=== PATIENT | female | born 1970 | race Two or more races ===

== ENCOUNTER 2019-04-18 14:43 | Emergency (ER) | payer MEDICAID, OTHER ==
[~2019-04-18] VITALS: Ht 160 cm; Wt 59.0 kg
[2019-04-18 14:45] VITALS: BP 125/78
== END 2019-04-18 19:31 | disposition left against medical advice (07) ==
LOC: EDBD 14:43 → ER 14:43
DX: G89.29 Other chronic pain (principal); M54.9 Dorsalgia, unspecified; Z53.21 Procedure and treatment not carried out due to patient leaving prior to being seen by health care provider

== ENCOUNTER 2022-08-08 06:23 | Day surgery (SDC) | payer MEDICARE, MEDICAID ==
[2022-08-07 15:24] LABS: Basophils # (auto) 0.2 10 ^3/uL (0-0.2); Basophils % (auto) 1.3 % (0.0-2.0); Eosinophils # (auto) 0.3 10 ^3/uL (0-0.8); Eosinophils % (auto) 1.9 % (0.0-7.0); Hematocrit 44.5 % (36.0-46.0); Hemoglobin 15.2 g/dL (12.2-16.2); Lymphocytes # (auto) 3.4 10 ^3/uL (0.4-5.4); Lymphocytes % (auto) 21.1 % (10.0-50.0); Mean Corpuscular Hemoglobin 31.3 pg (28.0-32.0); Mean Corpuscular Hgb Conc. 34.2 g/dL (32.0-36.0); Mean Corpuscular Volume 91.4 fL (80.0-100.0); Monocytes % (auto) 6.1 % (0.0-12.0); Neutrophils # (auto) 11.1 10 ^3/uL (1.6-8.6); Neutrophils % (auto) 69.6 % (37.0-80.0); Nucleated Red Blood Cells % 0.1 %; Red Blood Cells 4.86 10^6/uL (4.0-5.20); Red Cell Distribution Width 13.6 % (11.8-14.3)
[2022-08-07 15:40] LABS: INR 0.91 (0.9-1.15); Partial Thromboplastin Time 25.4 sec (24.6-33.4)
[2022-08-07 15:53] LABS: Albumin 3.7 g/dL (3.4-5.0); Calcium 9.2 mg/dL (8.5-10.1); Potassium 4.7 mmol/L (3.5-5.1)
[2022-08-07 15:56] LABS: Bilirubin, Total 0.4 mg/dL (0.2-1.0); Total Protein 7.3 g/dL (6.4-8.2)
[2022-08-07 16:10] LABS: Urine Bacteria NONE SEEN /hpf (None Seen); Urine Blood Negative /uL (Negative); Urine Specific Gravity 1.016 (1.001-1.035); Urine WBC 5 /hpf (0 - 5)
[~2022-08-08] VITALS: Ht 162.6 cm; Wt 63.5 kg
[~2022-08-08 06:23] MED LIST: GABA-339 PO; INSU100I43 SC; LISI20TA56 PO; METF-489 PO
[2022-08-08] MEDS ORDERED: LIDOCAINE 1%-Mpf/Epinephrine 1:200,000 ONE (06:36)
[2022-08-08] MEDS ORDERED: BUPIVACAINE 0.5% P/F INJ 10 ML VIAL ONE (06:37)
[2022-08-08] MEDS ORDERED: ceFAZolin 1GM/50ML 100 ML IV ONE (06:38)
[2022-08-08] MEDS ORDERED: ONDANSETRON HCL 4 MG/2 ML VIAL ONE (07:07)
[2022-08-08] MEDS ORDERED: LIDOCAINE 2% (LOCAL ANESTH.) PF 5ml SDV ONE (07:07)
[2022-08-08] MEDS ORDERED: GLYCOPYRROLATE 0.2 MG/ML 1ML VIAL ONE (07:07)
[2022-08-08] MEDS ORDERED: PROPOFOL 10 MG/ML 20 ML IV ONE ×2 (07:07→07:55)
[2022-08-08] MEDS ORDERED: KETOROLAC TROMETH 30 MG/ML 1ML VIAL ONE (07:07)
[2022-08-08] MEDS ORDERED: DexAMETHasone SOD PHOS 10MG/1ML VIAL INJ ONE (07:07)
[2022-08-08] MEDS ORDERED: VANCOMYCIN HCL 1000 MG VL ONE (08:03)
[2022-08-08] MEDS ORDERED: LABETALOL HCL 5 MG/ML 4ML SYRINGE IV PRN (08:30)
[2022-08-08] MEDS ORDERED: oxyCODONE HCL 5MG TAB PO PRN (08:30)
[2022-08-08] MEDS ORDERED: hydrALAZINE HCL 20 MG/ML VL IV PRN (08:30)
[2022-08-08] MEDS ORDERED: ONDANSETRON HCL 4 MG/2 ML VIAL IV PRN (08:30)
[2022-08-08] MEDS ORDERED: ePHEDrine SULFATE 50 MG/ML AMP IV PRN (08:30)
[2022-08-08] MEDS ORDERED: FLUMAZENIL 0.1 MG/ML INJ 10ML MDV IV PRN (08:30)
[2022-08-08] MEDS ORDERED: HYDROmorphone HCL 2 MG/ML VL/or syr IV PRN (08:30)
[2022-08-08] MEDS ORDERED: fentaNYL CITRATE 100 MCG/2 ML VL IV PRN (08:30)
[2022-08-08] MEDS ORDERED: NALOXONE HCL 0.4 MG/ML VIAL IV PRN (08:30)
[2022-08-08 09:15] VITALS: BP 161/88
== END 2022-08-08 09:20 | disposition home or self-care (01) ==
LOC: SUR 06:23
PROVIDERS: ATTEND Anesthesiology Pain Medicine
DX: M48.062 Spinal stenosis, lumbar region with neurogenic claudication (principal); E11.9 Type 2 diabetes mellitus without complications; I10 Essential (primary) hypertension; F17.210 Nicotine dependence, cigarettes, uncomplicated; Z79.84 Long term (current) use of oral hypoglycemic drugs; Z79.899 Other long term (current) drug therapy
CPT/HCPCS: 22869; 36415; 72100; 76000; 80053; 81001; 82962; 85025; 85610; 85730; C1821; J0690; J1100; J1885; J2001; J2405; J2704; J3370; J3490

== ENCOUNTER 2022-11-18 10:59 | Inpatient (IN) | payer MEDICARE, MEDICAID ==
[~2022-11-18] VITALS: Ht 162.6 cm; Wt 56.8 kg
[2022-11-18] MEDS ORDERED: SODIUM CHLORIDE 0.9% 1,000 ML IVB ONE (11:30)
[2022-11-18] MEDS ORDERED: DEXTROSE (50%) 50ML SYRG IV PRN ×3 (11:30→16:15)
[2022-11-18] MEDS ORDERED: InsuLIN R (HUMAN) 100 UNITS in SODIUM CHL 0.9% 99 ML IV SCH (11:30)
[2022-11-18] MEDS ORDERED: INSULIN LANTUS (GLARGINE) 1 /0.01ml (100units/ml) SC ONE (11:30)
[2022-11-18 11:45] LABS: Base Excess -12.8 mmol/L (-2.0-2.0)
[2022-11-18 12:04] LABS: Basophils # (auto) 0.1 10 ^3/uL (0-0.2); Basophils % (auto) 0.2 % (0.0-2.0); Eosinophils # (auto) 0 10 ^3/uL (0-0.8); Eosinophils % (auto) 0.2 % (0.0-7.0); Hematocrit 47.2 % (36.0-46.0); Hemoglobin 15.7 g/dL (12.2-16.2); Lymphocytes # (auto) 1.3 10 ^3/uL (0.4-5.4); Lymphocytes % (auto) 5.2 % (10.0-50.0); Mean Corpuscular Hgb Conc. 33.3 g/dL (32.0-36.0); Mean Corpuscular Volume 93.3 fL (80.0-100.0); Monocytes # (auto) 1.8 10 ^3/uL (0-1.3); Monocytes % (auto) 7.1 % (0.0-12.0); Neutrophils % (auto) 87.3 % (37.0-80.0); Red Blood Cells 5.06 10^6/uL (4.0-5.20); White Blood Cell 25.2 10^3/uL (4.4-10.8)
[2022-11-18 12:08] VITALS: PULSE 119; RESP 19; O2SAT 100
[2022-11-18 12:28] LABS: Alanine Aminotransferase 17 U/L (7-40); Albumin 4.9 g/dL (3.2-4.8); Alkaline Phosphatase 77 U/L (46-116); Anion Gap 19.9 (5-15); Aspartate Aminotransferase < 8 U/L (13-40); BUN/Creatinine Ratio 21.6 (10.0-20.0); Bilirubin, Total 0.4 mg/dL (0.2-1.0); Blood Urea Nitrogen 22 mg/dL (9-23); Calcium 9.9 mg/dL (8.5-10.1); Carbon Dioxide 14.1 mmol/L (20-30); Chloride 103 mmol/L (98-107); Glucose 240 mg/dL (74-106); Magnesium 1.4 mg/dL (1.6-2.6); Potassium 4.3 mmol/L (3.5-5.1); Sodium 137 mmol/L (136-145); Total Protein 7.3 g/dL (5.7-8.2)
[2022-11-18] MEDS ORDERED: SODIUM CHLORIDE 0.9% 1,000 ML IV ONE (13:30)
[2022-11-18] MEDS ORDERED: InsuLIN REG 1unit/0.01ml Soln (100units/ml) IV ONE (13:30)
[2022-11-18] MEDS ORDERED: cefTRIAXone 1GM/50ML D5W 50 ML IV ONE (14:00)
[2022-11-18] MEDS: ACCU-CHEK COMFORT CURVE STRIP VI SCH ×4 (14:16→21:13)
[2022-11-18] MEDS ORDERED: MORPHINE SULFATE INJ 2 MG/ml SYRG IV PRN (14:30)
[2022-11-18] MEDS ORDERED: NITROGLYCERIN 0.4 MG SL TAB SL PRN (14:30)
[2022-11-18] MEDS ORDERED: ACETAMINOPHEN 325 MG TAB PO PRN (14:30)
[2022-11-18] MEDS: MAGNESIUM SULFATE 1GM/100ML 100 ML IV SCH ×3 (14:59→17:37)
[2022-11-18 15:34] LABS: Alanine Aminotransferase 13 U/L (7-40); Albumin 4.5 g/dL (3.2-4.8); Alkaline Phosphatase 74 U/L (46-116); Anion Gap 15.3 (5-15); Aspartate Aminotransferase < 8 U/L (13-40); BUN/Creatinine Ratio 22.1 (10.0-20.0); Blood Urea Nitrogen 19 mg/dL (9-23); Carbon Dioxide 12.7 mmol/L (20-30); Chloride 108 mmol/L (98-107); Glucose 192 mg/dL (74-106); Potassium 3.9 mmol/L (3.5-5.1); Sodium 136 mmol/L (136-145)
[2022-11-18 15:35] LABS: Bilirubin, Total 0.3 mg/dL (0.2-1.0); Total Protein 6.6 g/dL (5.7-8.2)
[2022-11-18] MEDS ORDERED: HYDROcodone-ACET 5/325MG TAB PO ONE (16:00)
[2022-11-18 16:01] LABS: Base Excess -13.8 mmol/L (-2.0-2.0)
[2022-11-18] MEDS ORDERED: SODIUM BICARBONATE 8.4 % INJ 50ML VIAL IV ONE (17:00)
[2022-11-18] MEDS ORDERED: ACCU-CHEK COMFORT CURVE STRIP VI SCH (17:00)
[2022-11-18] MEDS ORDERED: InsuLIN REG 1unit/0.01ml Soln (100units/ml) SC SCH (17:00)
[2022-11-18] MEDS: InsuLIN REG 1unit/0.01ml Soln (100units/ml) SC SCH ×2 (17:33→21:28)
[2022-11-18 17:57] LABS: Amphetamine Screen, Urine Neg (NEGATIVE); Barbiturate Scree,Urine Neg (NEGATIVE); Benzodiazephine Screen, Urine Neg (NEGATIVE); Cannabinoid Screen, Urine Pos (NEGATIVE); Cocaine Screen, Urine Neg (NEGATIVE); Opiate Scree,Urine Neg (NEGATIVE); Phencyclidine Screen, Urine Neg (NEGATIVE)
[2022-11-18 18:00] LABS: Urine Bacteria NONE SEEN /hpf (None Seen); Urine Blood Negative /uL (Negative); Urine Clarity Clear (Clear); Urine Color Colorless (Yellow); Urine Protein, UAD 1+ (Negative); Urine Specific Gravity 1.024 (1.001-1.035); Urine Urobilinogen Normal (Negative); Urine WBC 2 /hpf (0 - 5); Urine pH 5.5 (5.0-8.0)
[2022-11-18] MEDS: SODIUM CHLORIDE 0.9% 1,000 ML IV SCH ×2 (18:35→23:26)
[2022-11-18] MEDS: GABAPENTIN 300 MG CAP PO SCH (21:28)
[2022-11-18 21:37] LABS: Base Excess -8.6 mmol/L (-2.0-2.0)
[2022-11-19] MEDS ORDERED: PANTOPRAZOLE 40 MG TAB PO ONE (00:30)
[2022-11-19 02:02] LABS: Alkaline Phosphatase 62 U/L (46-116); Anion Gap 12.2 (5-15); BUN/Creatinine Ratio 14.3 (10.0-20.0); Blood Urea Nitrogen 10 mg/dL (9-23); Calcium 8.4 mg/dL (8.7-10.4); Carbon Dioxide 15.8 mmol/L (20-30); Chloride 107 mmol/L (98-107); Glucose 125 mg/dL (74-106); Potassium 3.1 mmol/L (3.5-5.1); Sodium 135 mmol/L (136-145)
[2022-11-19 02:03] LABS: Alanine Aminotransferase < 9 U/L (7-40); Aspartate Aminotransferase < 8 U/L (13-40); Total Protein 6.3 g/dL (5.7-8.2)
[2022-11-19 02:31] LABS: Bilirubin, Total 0.3 mg/dL (0.2-1.0)
[2022-11-19] MEDS: ACCU-CHEK COMFORT CURVE STRIP VI SCH ×4 (06:12→23:01)
[2022-11-19] MEDS: GABAPENTIN 300 MG CAP PO SCH ×3 (06:15→22:58)
[2022-11-19] MEDS: SODIUM CHLORIDE 0.9% 1,000 ML IV SCH ×2 (06:15→15:30)
[2022-11-19] MEDS: InsuLIN REG 1unit/0.01ml Soln (100units/ml) SC SCH ×4 (06:16→23:07)
[2022-11-19 07:28] VITALS: PULSE 102; RESP 22; O2SAT 100
[2022-11-19 08:18] LABS: Basophils # (auto) 0.1 10 ^3/uL (0-0.2); Basophils % (auto) 0.4 % (0.0-2.0); Eosinophils # (auto) 0.1 10 ^3/uL (0-0.8); Eosinophils % (auto) 0.3 % (0.0-7.0); Hematocrit 40.6 % (36.0-46.0); Hemoglobin 13.8 g/dL (12.2-16.2); Lymphocytes # (auto) 1.9 10 ^3/uL (0.4-5.4); Mean Corpuscular Hemoglobin 30.9 pg (28.0-32.0); Mean Corpuscular Volume 90.7 fL (80.0-100.0); Monocytes # (auto) 1.9 10 ^3/uL (0-1.3); Monocytes % (auto) 8.8 % (0.0-12.0); Neutrophils # (auto) 17.4 10 ^3/uL (1.6-8.6); Neutrophils % (auto) 81.5 % (37.0-80.0); Red Blood Cells 4.47 10^6/uL (4.0-5.20); Red Cell Distribution Width 13.6 % (11.8-14.3); White Blood Cell 21.4 10^3/uL (4.4-10.8)
[2022-11-19] MEDS: ONDANSETRON HCL 4 MG/2 ML VIAL IV PRN ×4 (08:23→22:57)
[2022-11-19] MEDS: cefTRIAXone 1GM/50ML D5W 50 ML IV SCH (08:32)
[2022-11-19 08:42] LABS: Albumin 4.2 g/dL (3.2-4.8); Alkaline Phosphatase 67 U/L (46-116); Anion Gap 15.1 (5-15); Aspartate Aminotransferase < 8 U/L (13-40); BUN/Creatinine Ratio 14.3 (10.0-20.0); Bilirubin, Total 0.4 mg/dL (0.2-1.0); Blood Urea Nitrogen 10 mg/dL (9-23); Carbon Dioxide 15.9 mmol/L (20-30); Chloride 106 mmol/L (98-107); Glucose 136 mg/dL (74-106); Sodium 137 mmol/L (136-145); Total Protein 6.6 g/dL (5.7-8.2)
[2022-11-19 08:54] LABS: Alanine Aminotransferase < 9 U/L (7-40)
[2022-11-19 08:56] LABS: Potassium 2.8 mmol/L (3.5-5.1)
[2022-11-19] MEDS ORDERED: POTASSIUM CHL 20MEQ/100ML 100 ML IV ONE (09:30)
[2022-11-19] MEDS ORDERED: POTASSIUM EFFERVESENT TAB 25 MEQ PO ONE (09:30)
[2022-11-19] MEDS ORDERED: INSULIN LANTUS (GLARGINE) 1 /0.01ml (100units/ml) SC SCH (10:00)
[2022-11-19] MEDS ORDERED: NORT25CA PO (10:34)
[2022-11-19] MEDS ORDERED: NAP500T PO (10:34)
[2022-11-19] MEDS ORDERED: INSU100I4 SC (10:34)
[2022-11-19] MEDS ORDERED: ATOR40TA52 PO (10:34)
[2022-11-19 10:54] VITALS: BP 163/78; PULSE 102; RESP 19; TEMP 98.5; O2SAT 99
[2022-11-19] MEDS: LISINOPRIL 20 MG TAB PO SCH (11:09)
[2022-11-19] MEDS: ENOXAPARIN SOD 40 MG/0.4 ML SYRINGE SC SCH (11:10)
[2022-11-19 13:00] VITALS: BP 162/91; PULSE 106; RESP 20; TEMP 98.4; O2SAT 100
[2022-11-19 14:33] LABS: Albumin 4.1 g/dL (3.2-4.8); Alkaline Phosphatase 63 U/L (46-116); Anion Gap 11.3 (5-15); Aspartate Aminotransferase < 8 U/L (13-40); BUN/Creatinine Ratio 11.3 (10.0-20.0); Blood Urea Nitrogen 7 mg/dL (9-23); Carbon Dioxide 18.7 mmol/L (20-30); Chloride 105 mmol/L (98-107); Glucose 91 mg/dL (74-106); Potassium 4.2 mmol/L (3.5-5.1); Sodium 135 mmol/L (136-145); Total Protein 6.4 g/dL (5.7-8.2)
[2022-11-19 14:47] LABS: Alanine Aminotransferase < 9 U/L (7-40)
[2022-11-19 15:04] LABS: Bilirubin, Total 0.4 mg/dL (0.2-1.0)
[2022-11-19 17:00] VITALS: BP 132/74; PULSE 110; RESP 20; TEMP 99.2; O2SAT 100
[2022-11-19 18:56] LABS: Albumin 4.2 g/dL (3.2-4.8); Alkaline Phosphatase 66 U/L (46-116); Anion Gap 14.4 (5-15); Aspartate Aminotransferase < 8 U/L (13-40); BUN/Creatinine Ratio 12.3 (10.0-20.0); Bilirubin, Total 0.4 mg/dL (0.2-1.0); Blood Urea Nitrogen 8 mg/dL (9-23); Calcium 8.9 mg/dL (8.5-10.1); Carbon Dioxide 15.6 mmol/L (20-30); Chloride 104 mmol/L (98-107); Glucose 125 mg/dL (74-106); Potassium 3.5 mmol/L (3.5-5.1); Sodium 134 mmol/L (136-145); Total Protein 6.5 g/dL (5.7-8.2)
[2022-11-19 19:21] LABS: Alanine Aminotransferase < 9 U/L (7-40)
[2022-11-19 20:10] VITALS: PULSE 102; PULSE 98; RESP 14; O2SAT 100
[2022-11-19 21:57] VITALS: BP 160/86; PULSE 98; RESP 17; TEMP 98.4; O2SAT 100
[2022-11-20 05:00] VITALS: BP 141/73; PULSE 91; RESP 18; TEMP 98; O2SAT 99
[2022-11-20] MEDS: ONDANSETRON HCL 4 MG/2 ML VIAL IV PRN ×2 (05:11→09:42)
[2022-11-20] MEDS: SODIUM CHLORIDE 0.9% 1,000 ML IV SCH ×2 (05:12→08:10)
[2022-11-20] MEDS: ACCU-CHEK COMFORT CURVE STRIP VI SCH ×2 (06:55→12:25)
[2022-11-20] MEDS: InsuLIN REG 1unit/0.01ml Soln (100units/ml) SC SCH ×2 (06:55→12:26)
[2022-11-20] MEDS: GABAPENTIN 300 MG CAP PO SCH ×2 (06:55→13:48)
[2022-11-20 08:00] VITALS: PULSE 97; RESP 16; O2SAT 100
[2022-11-20] MEDS: LISINOPRIL 20 MG TAB PO SCH (09:33)
[2022-11-20] MEDS: cefTRIAXone 1GM/50ML D5W 50 ML IV SCH (09:33)
[2022-11-20] MEDS: ENOXAPARIN SOD 40 MG/0.4 ML SYRINGE SC SCH (09:34)
[2022-11-20 09:51] VITALS: BP 153/82; PULSE 89; RESP 20; TEMP 98.4; O2SAT 100
[2022-11-20] MEDS ORDERED: LEVO500T91 PO (11:53)
[2022-11-20 12:47] VITALS: BP 161/86; PULSE 90; RESP 20; TEMP 98.4; O2SAT 99
== END 2022-11-20 13:00 | disposition home or self-care (01) | DRG 638 ==
LOC: EDUNIT# 10:59 → EDBD 10:59 → ER 10:59 → TELE 14:30 → TELE-WESTW 11-19 10:15
PROVIDERS: ADMIT Nurse Practitioner Family; ATTEND Internal Medicine
DX: E11.10 Type 2 diabetes mellitus with ketoacidosis without coma (principal); N39.0 Urinary tract infection, site not specified; E83.42 Hypomagnesemia; E86.0 Dehydration; I10 Essential (primary) hypertension; Z96.652 Presence of left artificial knee joint; F17.210 Nicotine dependence, cigarettes, uncomplicated; E78.5 Hyperlipidemia, unspecified; E11.65 Type 2 diabetes mellitus with hyperglycemia; Z88.5 Allergy status to narcotic agent; Z83.3 Family history of diabetes mellitus; Z86.73 Personal history of transient ischemic attack (TIA), and cerebral infarction without residual deficits; Z79.4 Long term (current) use of insulin; Z80.9 Family history of malignant neoplasm, unspecified
CPT/HCPCS: 36415; 36600; 71045; 80053; 80307; 81001; 82010; 82805; 82962; 83036; 83605; 83735; 85025; 87040; 87077; 87186; 93005; 96361; 96365; G0378; J0696; J1815; J2405; J3480

== ENCOUNTER 2023-11-14 14:09 | Inpatient (IN) | payer BC, MEDICAID ==
[~2023-11-14] VITALS: Ht 162.6 cm; Wt 60.4 kg
[~2023-11-14 14:09] MED LIST changes: +ATOR40TA52 PO; +LEVO500T91 PO; +NAP500T PO; +NORT25CA PO
[2023-11-14 14:35] LABS: Basophils # (auto) 0.2 10 ^3/uL (0-0.2); Basophils % (auto) 2.2 % (0.0-2.0); Eosinophils # (auto) 0.2 10 ^3/uL (0-0.8); Eosinophils % (auto) 2.2 % (0.0-7.0); Hematocrit 36.9 % (36.0-46.0); Hemoglobin 12.9 g/dL (12.2-16.2); Lymphocytes % (auto) 24.5 % (10.0-50.0); Mean Corpuscular Hemoglobin 31.8 pg (28.0-32.0); Mean Corpuscular Hgb Conc. 35.1 g/dL (32.0-36.0); Mean Corpuscular Volume 90.8 fL (80.0-100.0); Monocytes # (auto) 0.7 10 ^3/uL (0-1.3); Monocytes % (auto) 9.1 % (0.0-12.0); Nucleated Red Blood Cells % 0.1 %; Platelet Count (auto) 321 10^3/uL (140-450); Red Blood Cells 4.06 10^6/uL (4.0-5.20); Red Cell Distribution Width 14.2 % (11.8-14.3); White Blood Cell 8.1 10^3/uL (4.4-10.8)
[2023-11-14 14:49] LABS: Alanine Aminotransferase 13 U/L (7-40); Albumin 4.3 g/dL (3.2-4.8); Alkaline Phosphatase 71 U/L (46-116); Anion Gap 8 (5-15); Aspartate Aminotransferase 10 U/L (13-40); BUN/Creatinine Ratio 17.3 (10.0-20.0); Bilirubin, Total 0.3 mg/dL (0.2-1.0); Blood Urea Nitrogen 14 mg/dL (9-23); Calcium 9.6 mg/dL (8.7-10.4); Carbon Dioxide 23 mmol/L (20-30); Chloride 100 mmol/L (98-107); Glucose 282 mg/dL (74-106); Potassium 4.2 mmol/L (3.5-5.1); Sodium 131 mmol/L (136-145); Total Protein 6.4 g/dL (5.7-8.2)
[2023-11-14 15:05] LABS: INR 0.97 (0.9-1.15); Prothrombin Time 10.3 sec (9.3-11.8)
[2023-11-14] MEDS: KETOROLAC TROMETH 60MG/2ML VIAL IM ONE (15:36)
[2023-11-14 15:43] VITALS: PULSE 80; RESP 18; O2SAT 98
[2023-11-14] MEDS: IOHEXOL 300 MG/ML 100ML BOTTLE IJ ONE (16:11)
[2023-11-14] MEDS: ONDANSETRON HCL 4 MG/2 ML VIAL IV ONE (17:24)
[2023-11-14] MEDS: MORPHINE SULFATE 4 MG/ML SYR/VIAL IV ONE (17:25)
[2023-11-14 17:39] LABS: Urine Bacteria None Seen /hpf (None Seen)
[2023-11-14 18:32] LABS: Urine Blood Negative /uL (Negative); Urine Clarity Clear (Clear); Urine Color Light-Yellow (Yellow); Urine Protein, UAD Negative (Negative); Urine Specific Gravity 1.049 (1.001-1.035); Urine Urobilinogen Normal (Negative); Urine WBC 7 /hpf (0 - 5)
[2023-11-14] MEDS ORDERED: ACETAMINOPHEN 325 MG TAB PO PRN (19:00)
[2023-11-14] MEDS ORDERED: DEXTROSE (50%) 50ML SYRG IV PRN (19:00)
[2023-11-14 19:10] VITALS: PULSE 80; RESP 18; O2SAT 98
[2023-11-14] MEDS: hydrALAZINE HCL 20 MG/ML VL IV PRN (20:32)
[2023-11-14 20:45] VITALS: BP 163/95; PULSE 92; RESP 18; TEMP 98.2; O2SAT 99
[2023-11-14] MEDS: GABAPENTIN 300 MG CAP PO SCH (21:14)
[2023-11-14] MEDS: ATORVASTATIN 20 MG TAB PO SCH (21:15)
[2023-11-14] MEDS: MORPHINE SULFATE INJ 2 MG/ml SYRG IV PRN (21:16)
[2023-11-14 21:21] VITALS: BP 160/89; PULSE 90; RESP 22; TEMP 97.9; O2SAT 100
[2023-11-14 22:00] VITALS: BP 160/89; PULSE 90; RESP 22; TEMP 97.9; O2SAT 100
[2023-11-14] MEDS: ACCU-CHEK COMFORT CURVE STRIP VI SCH (23:12)
[2023-11-14] MEDS: HYDROcodone-ACET 5/325MG TAB PO PRN (23:12)
[2023-11-14] MEDS: InsuLIN REG 1unit/0.01ml Soln (100units/ml) SC SCH (23:19)
[2023-11-15 01:00] VITALS: BP 160/93; PULSE 84; RESP 21; TEMP 97.7; O2SAT 99
[2023-11-15] MEDS: ONDANSETRON HCL 4 MG/2 ML VIAL IV PRN (04:31)
[2023-11-15 05:00] VITALS: BP 128/85; PULSE 104; RESP 21; TEMP 97.6; O2SAT 98
[2023-11-15 06:45] LABS: Anion Gap 4 (5-15); Carbon Dioxide 28 mmol/L (20-30); Chloride 101 mmol/L (98-107); Potassium 3.6 mmol/L (3.5-5.1); Sodium 133 mmol/L (136-145)
[2023-11-15 06:46] LABS: Calcium 10.1 mg/dL (8.7-10.4)
[2023-11-15 06:50] LABS: Glucose 178 mg/dL (74-106)
[2023-11-15 06:51] LABS: BUN/Creatinine Ratio 13.6 (10.0-20.0); Blood Urea Nitrogen 9 mg/dL (9-23)
[2023-11-15 09:00] VITALS: BP 151/90; PULSE 93; RESP 19; TEMP 98.4; O2SAT 99
[2023-11-15] MEDS: LISINOPRIL 20 MG TAB PO SCH (09:37)
[2023-11-15 13:00] VITALS: BP 165/82; PULSE 101; RESP 14; TEMP 97.5; O2SAT 98
[2023-11-15] MEDS: LACTULOSE 20Gm/30ML SOLN PO ONE (14:16)
[2023-11-15] MEDS: cefTRIAXone 1GM/50ML D5W 50 ML IV ONE (14:30)
[2023-11-15 17:00] VITALS: BP 133/76; PULSE 91; RESP 16; TEMP 98; O2SAT 98
[2023-11-15 21:00] VITALS: BP 133/78; PULSE 92; RESP 20; TEMP 98.4; O2SAT 99
[2023-11-15] MEDS: DOCUSATE SOD 100 MG CAP PO SCH (21:11)
[2023-11-16 01:00] VITALS: BP 134/86; PULSE 81; RESP 16; TEMP 97.9; O2SAT 99
[2023-11-16 05:00] VITALS: BP 134/89; PULSE 9; RESP 15; TEMP 97.9; O2SAT 99
[2023-11-16 08:56] VITALS: BP 136/79; PULSE 92; RESP 19; TEMP 98.4; O2SAT 97
[2023-11-16] MEDS: cefTRIAXone 1GM/50ML D5W 50 ML IV SCH (09:10)
[2023-11-16 12:35] VITALS: BP 146/79; PULSE 93; RESP 17; TEMP 98.3; O2SAT 99
[2023-11-16 17:03] VITALS: BP 140/115; PULSE 97; RESP 19; TEMP 97.9; O2SAT 99
[2023-11-16 21:00] VITALS: BP 131/82; PULSE 90; RESP 20; TEMP 97.4; O2SAT 98
[2023-11-16] MEDS: TEMAZEPAM 15 MG CAP PO PRN (22:59)
[2023-11-17] VITALS (7 sets, daily range): BP systolic 147–160; BP diastolic 70–99; PULSE 86–106; RESP 18–22; TEMP 97.7–98.9; O2SAT 99–100
[2023-11-17] MEDS: KETOROLAC TROMETH 30 MG/ML 1ML VIAL IV PRN (11:42)
[2023-11-18 00:39] VITALS: BP 181/92; PULSE 85; RESP 18; TEMP 98.3; O2SAT 100
[2023-11-18 05:00] VITALS: BP 185/66; PULSE 88; RESP 20; TEMP 98.4; O2SAT 99
[2023-11-18 07:45] VITALS: BP 103/58; PULSE 102; RESP 18; TEMP 98.3; O2SAT 100
[2023-11-18] MEDS ORDERED: HYDR-4902 PO (10:06)
[2023-11-18] MEDS ORDERED: CIPR-173 PO (10:06)
[2023-11-18 12:58] VITALS: BP 103/58; PULSE 102; RESP 18; TEMP 98.3; O2SAT 100
== END 2023-11-18 13:40 | disposition home or self-care (01) | DRG 690 ==
LOC: ER 14:09 → OVERFLOW 18:58 → CENTRAL 20:45
PROVIDERS: ADMIT Nurse Practitioner; ATTEND Family Medicine
DX: N10 Acute pyelonephritis (principal); I10 Essential (primary) hypertension; E78.00 Pure hypercholesterolemia, unspecified; F17.210 Nicotine dependence, cigarettes, uncomplicated; E11.9 Type 2 diabetes mellitus without complications; Z86.73 Personal history of transient ischemic attack (TIA), and cerebral infarction without residual deficits; Z82.49 Family history of ischemic heart disease and other diseases of the circulatory system; Z83.3 Family history of diabetes mellitus; Z79.84 Long term (current) use of oral hypoglycemic drugs; Z79.85 Long-term (current) use of injectable non-insulin antidiabetic drugs
CPT/HCPCS: 36415; 71045; 71260; 74177; 80048; 80053; 81001; 82962; 83036; 84484; 85025; 85610; 85730; 87086; 93005; G0378; J1815; J1885; J2405

== ENCOUNTER 2024-01-02 16:02 | Inpatient (IN) | payer BC, MEDICAID ==
[~2024-01-02] VITALS: Ht 160 cm; Wt 58.4 kg
[~2024-01-02 16:02] MED LIST changes: +CIPR-173 PO; +HYDR-4902 PO
[2024-01-02] MEDS: SODIUM CHLORIDE 0.9% 1,000 ML IV ONE (17:17)
[2024-01-02] MEDS: ALBUTEROL SULF 2.5 MG/0.5ML(0.5%) NEB SOLN NEB ONE ×2 (17:27→20:57)
[2024-01-02] MEDS: IPRATROPIUM BROM 0.5 MG/2.5ML INH SOL NEB ONE (17:27)
[2024-01-02 17:29] LABS: Basophils # (auto) 0.1 10 ^3/uL (0-0.2); Basophils % (auto) 1.3 % (0.0-2.0); Eosinophils # (auto) 0.1 10 ^3/uL (0-0.8); Eosinophils % (auto) 0.7 % (0.0-7.0); Hemoglobin 13.5 g/dL (12.2-16.2); Lymphocytes # (auto) 1.4 10 ^3/uL (0.4-5.4); Lymphocytes % (auto) 13.8 % (10.0-50.0); Mean Corpuscular Hemoglobin 32.2 pg (28.0-32.0); Mean Corpuscular Volume 88.3 fL (80.0-100.0); Monocytes # (auto) 0.6 10 ^3/uL (0-1.3); Neutrophils % (auto) 78.2 % (37.0-80.0); Platelet Count (auto) 416 10^3/uL (140-450); Red Blood Cells 4.19 10^6/uL (4.0-5.20); Red Cell Distribution Width 13.3 % (11.8-14.3); White Blood Cell 10.3 10^3/uL (4.4-10.8)
[2024-01-02 17:32] LABS: Mean Corpuscular Hgb Conc. 36.5 g/dL (32.0-36.0)
[2024-01-02 17:35] VITALS: O2SAT 99
[2024-01-02 17:45] LABS: Alanine Aminotransferase 12 U/L (7-40); Albumin 4.3 g/dL (3.2-4.8); Alkaline Phosphatase 68 U/L (46-116); Anion Gap 7 (5-15); Aspartate Aminotransferase < 8 U/L (13-40); BUN/Creatinine Ratio 14.8 (10.0-20.0); Blood Urea Nitrogen 8 mg/dL (9-23); Calcium 10.1 mg/dL (8.7-10.4); Carbon Dioxide 25 mmol/L (20-31); Chloride 102 mmol/L (98-107); Glucose 216 mg/dL (74-106); Magnesium 1.1 mg/dL (1.6-2.6); Potassium 3.6 mmol/L (3.5-5.1); Sodium 134 mmol/L (136-145)
[2024-01-02 17:46] LABS: Bilirubin, Total 0.4 mg/dL (0.2-1.0); Total Protein 6.4 g/dL (5.7-8.2)
[2024-01-02] MEDS: MAGNESIUM SULFATE 1GM/100ML 100 ML IV SCH (19:05)
[2024-01-02] MEDS: methylPREDNISolone SOD SUCC 125 MG/2 ML VL IV ONE (21:23)
[2024-01-02] MEDS: ONDANSETRON HCL 4 MG/2 ML VIAL IV ONE (21:27)
[2024-01-02] MEDS: MORPHINE SULFATE 4 MG/ML SYR/VIAL IV ONE (21:27)
[2024-01-02 23:45] LABS: Urine Bacteria FEW /hpf (None Seen); Urine Blood Negative /uL (Negative); Urine Clarity Clear (Clear); Urine Color Light-Yellow (Yellow); Urine Protein, UAD TRACE (Negative); Urine Specific Gravity 1.014 (1.001-1.035); Urine Urobilinogen Normal (Negative); Urine WBC 9 /hpf (0 - 5); Urine pH 6.5 (5.0-9.0)
[2024-01-03] VITALS (9 sets, daily range): BP systolic 137–173; BP diastolic 72–99; PULSE 92–108; RESP 19–23; TEMP 97.7–99; O2SAT 97–98
[2024-01-03] MEDS ORDERED: DEXTROSE (50%) 50ML SYRG IV PRN (03:45)
[2024-01-03] MEDS ORDERED: HYDROcodone-ACET 5/325MG TAB PO PRN (03:45)
[2024-01-03] MEDS: NORTRIPTYLINE HCL 10 MG CAP PO SCH (03:51)
[2024-01-03] MEDS ORDERED: IPRATROPIUM BROM 0.5 MG/2.5ML INH SOL NEB SCH (04:00)
[2024-01-03] MEDS ORDERED: LEVALBUTEROL HCL 1.25 MG/3 ML NEB NEB SCH (04:00)
[2024-01-03] MEDS: cefTRIAXone 1GM/50ML D5W 50 ML IV SCH (04:14)
[2024-01-03] MEDS: InsuLIN REG 1unit/0.01ml Soln (100units/ml) SC SCH (04:14)
[2024-01-03] MEDS: LISINOPRIL 20 MG TAB PO ONE (04:25)
[2024-01-03] MEDS: POTASSIUM EFFERVESENT TAB 25 MEQ PO ONE ×2 (04:26→08:28)
[2024-01-03 05:01] LABS: Basophils # (auto) 0.1 10 ^3/uL (0-0.2); Basophils % (auto) 1.1 % (0.0-2.0); Eosinophils # (auto) 0 10 ^3/uL (0-0.8); Eosinophils % (auto) 0.1 % (0.0-7.0); Hematocrit 39.1 % (36.0-46.0); Hemoglobin 13.5 g/dL (12.2-16.2); Lymphocytes # (auto) 0.5 10 ^3/uL (0.4-5.4); Lymphocytes % (auto) 7.3 % (10.0-50.0); Mean Corpuscular Hemoglobin 31.2 pg (28.0-32.0); Mean Corpuscular Hgb Conc. 34.5 g/dL (32.0-36.0); Mean Corpuscular Volume 90.4 fL (80.0-100.0); Monocytes # (auto) 0 10 ^3/uL (0-1.3); Monocytes % (auto) 0.6 % (0.0-12.0); Neutrophils # (auto) 6.5 10 ^3/uL (1.6-8.6); Neutrophils % (auto) 90.9 % (37.0-80.0); Platelet Count (auto) 384 10^3/uL (140-450); Red Blood Cells 4.33 10^6/uL (4.0-5.20); Red Cell Distribution Width 13.4 % (11.8-14.3); White Blood Cell 7.2 10^3/uL (4.4-10.8)
[2024-01-03 05:17] LABS: INR 0.97 (0.9-1.15); Partial Thromboplastin Time 23.2 SEC (24.5-34.5); Prothrombin Time 10.3 sec (9.3-11.8)
[2024-01-03 05:28] LABS: Alanine Aminotransferase 13 U/L (7-40); Albumin 4.8 g/dL (3.2-4.8); Alkaline Phosphatase 71 U/L (46-116); Anion Gap 10 (5-15); Aspartate Aminotransferase 8 U/L (13-40); BUN/Creatinine Ratio 11.1 (10.0-20.0); Blood Urea Nitrogen 8 mg/dL (9-23); Calcium 9.9 mg/dL (8.7-10.4); Carbon Dioxide 23 mmol/L (20-31); Chloride 100 mmol/L (98-107); Glucose 342 mg/dL (74-106); Magnesium 1.8 mg/dL (1.6-2.6); Potassium 3.7 mmol/L (3.5-5.1); Sodium 133 mmol/L (136-145)
[2024-01-03 05:29] LABS: Bilirubin, Total 0.3 mg/dL (0.2-1.0); Free T3 3.39 pg/mL (2.3-4.2); Free T4 (Free Thyroxine) 1.52 ng/dL (0.89-1.76); Total Protein 7.3 g/dL (5.7-8.2)
[2024-01-03 06:17] LABS: COVID19 ANTIGEN SOFIA FIA NEGATIVE (NEGATIVE); Rapid Influenza A Negative (Negative); Rapid Influenza B Negative (Negative)
[2024-01-03] MEDS: AZITHROMYCIN 500MG/ 250ML 250 ML IV SCH (06:55)
[2024-01-03] MEDS: ACCU-CHEK COMFORT CURVE STRIP VI SCH (06:58)
[2024-01-03] MEDS: IPRATROPIUM BROM 0.5 MG/2.5ML INH SOL NEB SCH ×2 (07:20→18:00)
[2024-01-03] MEDS: LEVALBUTEROL HCL 1.25 MG/3 ML NEB NEB SCH ×2 (07:29→18:00)
[2024-01-03] MEDS: ONDANSETRON HCL 4 MG/2 ML VIAL IV PRN (07:44)
[2024-01-03] MEDS: LORazepam 2MG/ML-1ML VIAL IV PRN (07:45)
[2024-01-03] MEDS: MAGNESIUM SULFATE 1GM/100ML 100 ML IV ONE (09:02)
[2024-01-03] MEDS: predniSONE 20 MG TAB PO SCH (10:59)
[2024-01-03] MEDS: LISINOPRIL 20 MG TAB PO SCH (11:02)
[2024-01-03] MEDS: GABAPENTIN 300 MG CAP PO SCH (11:02)
[2024-01-03] MEDS: MORPHINE SULFATE INJ 2 MG/ml SYRG IV PRN (11:04)
[2024-01-03] MEDS: ENOXAPARIN SOD 40 MG/0.4 ML SYRINGE SC SCH (11:24)
[2024-01-03] MEDS: LORazepam 0.5 MG TAB PO ONE (11:24)
[2024-01-03] MEDS: ENALAPRILAT 1.25 MG/ML-1ML VIAL IV PRN (13:38)
[2024-01-03] MEDS: hydrALAZINE HCL 20 MG/ML VL IV PRN (17:37)
[2024-01-03] MEDS: ATORVASTATIN 20 MG TAB PO SCH (22:10)
[2024-01-03] MEDS ORDERED: IPRATROPIUM BROM 0.5 MG/2.5ML INH SOL NEB PRN (22:45)
[2024-01-03] MEDS ORDERED: LEVALBUTEROL HCL 1.25 MG/3 ML NEB NEB PRN (22:45)
[2024-01-04] VITALS (10 sets, daily range): BP systolic 101–151; BP diastolic 68–96; PULSE 90–107; RESP 17–19; TEMP 97.8–98.5; O2SAT 97–100
[2024-01-04 06:54] LABS: Basophils # (auto) 0 10 ^3/uL (0-0.2); Basophils % (auto) 0.4 % (0.0-2.0); Eosinophils # (auto) 0 10 ^3/uL (0-0.8); Eosinophils % (auto) 0.3 % (0.0-7.0); Hematocrit 37.4 % (36.0-46.0); Hemoglobin 13.3 g/dL (12.2-16.2); Lymphocytes # (auto) 1.9 10 ^3/uL (0.4-5.4); Lymphocytes % (auto) 18.9 % (10.0-50.0); Mean Corpuscular Hemoglobin 31.7 pg (28.0-32.0); Mean Corpuscular Hgb Conc. 35.5 g/dL (32.0-36.0); Mean Corpuscular Volume 89.3 fL (80.0-100.0); Monocytes # (auto) 0.9 10 ^3/uL (0-1.3); Monocytes % (auto) 9.1 % (0.0-12.0); Neutrophils # (auto) 7.4 10 ^3/uL (1.6-8.6); Neutrophils % (auto) 71.3 % (37.0-80.0); Platelet Count (auto) 380 10^3/uL (140-450); Red Blood Cells 4.19 10^6/uL (4.0-5.20); Red Cell Distribution Width 13.4 % (11.8-14.3); White Blood Cell 10.3 10^3/uL (4.4-10.8)
[2024-01-04 07:16] LABS: Alanine Aminotransferase 10 U/L (7-40); Albumin 4.4 g/dL (3.2-4.8); Alkaline Phosphatase 64 U/L (46-116); Anion Gap 5 (5-15); Aspartate Aminotransferase < 8 U/L (13-40); BUN/Creatinine Ratio 18.4 (10.0-20.0); Blood Urea Nitrogen 9 mg/dL (9-23); Calcium 9.6 mg/dL (8.7-10.4); Carbon Dioxide 24 mmol/L (20-31); Chloride 106 mmol/L (98-107); Glucose 187 mg/dL (74-106); Potassium 3.1 mmol/L (3.5-5.1); Sodium 135 mmol/L (136-145)
[2024-01-04 07:17] LABS: Bilirubin, Total 0.3 mg/dL (0.2-1.0); Total Protein 6.5 g/dL (5.7-8.2)
[2024-01-04 07:24] LABS: Magnesium 1.6 mg/dL (1.6-2.6)
[2024-01-04 11:12] LABS: Amphetamine Screen, Urine Neg (NEGATIVE); Barbiturate Scree,Urine Neg (NEGATIVE); Benzodiazephine Screen, Urine Neg (NEGATIVE); Cannabinoid Screen, Urine Pos (NEGATIVE); Cocaine Screen, Urine Neg (NEGATIVE); Opiate Scree,Urine Neg (NEGATIVE); Phencyclidine Screen, Urine Neg (NEGATIVE)
[2024-01-04] MEDS: ACETAMINOPHEN 500 MG TAB PO PRN (11:43)
[2024-01-04] MEDS: ACCU-CHEK COMFORT CURVE STRIP VI SCH ×3 (11:53→16:03)
[2024-01-04] MEDS: POTASSIUM CHL 20 Meq TABLET PO ONE (16:02)
[2024-01-05] VITALS (7 sets, daily range): BP systolic 111–172; BP diastolic 75–96; PULSE 86–105; RESP 18–20; TEMP 36.7; O2SAT 99–100
[2024-01-05 10:31] LABS: Basophils # (auto) 0.1 10 ^3/uL (0-0.2); Basophils % (auto) 1.1 % (0.0-2.0); Eosinophils # (auto) 0.1 10 ^3/uL (0-0.8); Eosinophils % (auto) 0.8 % (0.0-7.0); Hematocrit 37.5 % (36.0-46.0); Hemoglobin 13.1 g/dL (12.2-16.2); Lymphocytes # (auto) 3.1 10 ^3/uL (0.4-5.4); Lymphocytes % (auto) 37.7 % (10.0-50.0); Mean Corpuscular Hemoglobin 31.1 pg (28.0-32.0); Mean Corpuscular Hgb Conc. 34.8 g/dL (32.0-36.0); Mean Corpuscular Volume 89.3 fL (80.0-100.0); Monocytes # (auto) 0.7 10 ^3/uL (0-1.3); Monocytes % (auto) 9.2 % (0.0-12.0); Neutrophils # (auto) 4.2 10 ^3/uL (1.6-8.6); Neutrophils % (auto) 51.2 % (37.0-80.0); Nucleated Red Blood Cells % 0.2 %; Platelet Count (auto) 343 10^3/uL (140-450); Red Cell Distribution Width 13.4 % (11.8-14.3); White Blood Cell 8.1 10^3/uL (4.4-10.8)
[2024-01-05 10:50] LABS: Alanine Aminotransferase 15 U/L (7-40); Albumin 4.2 g/dL (3.2-4.8); Alkaline Phosphatase 59 U/L (46-116); Anion Gap 7 (5-15); Aspartate Aminotransferase 13 U/L (13-40); BUN/Creatinine Ratio 15.8 (10.0-20.0); Bilirubin, Total 0.3 mg/dL (0.2-1.0); Blood Urea Nitrogen 9 mg/dL (9-23); Calcium 9.5 mg/dL (8.7-10.4); Carbon Dioxide 23 mmol/L (20-31); Chloride 103 mmol/L (98-107); Glucose 247 mg/dL (74-106); Potassium 3.7 mmol/L (3.5-5.1); Sodium 133 mmol/L (136-145); Total Protein 6.4 g/dL (5.7-8.2)
[2024-01-05] MEDS: MAGNESIUM SULFATE 1GM/100ML 100 ML IV SCH (11:47)
[2024-01-05] MEDS ORDERED: AZITTAB PO (14:07)
[2024-01-05] MEDS ORDERED: PRED20TA2 PO (14:07)
[2024-01-05] MEDS ORDERED: AZIT500T PO (19:18)
== END 2024-01-05 15:28 | disposition home or self-care (01) | DRG 640 ==
LOC: EDBD 16:02 → EDUNIT# 16:02 → ER 16:02 → OVERFLOW 01-03 03:42 → WEST WING 01-03 09:22 → TELE-WESTW 01-03 11:29
PROVIDERS: ADMIT Internal Medicine; ATTEND Internal Medicine
DX: E83.42 Hypomagnesemia (principal); J96.01 Acute respiratory failure with hypoxia; J44.1 Chronic obstructive pulmonary disease with (acute) exacerbation; E87.1 Hypo-osmolality and hyponatremia; J44.0 Chronic obstructive pulmonary disease with (acute) lower respiratory infection; I10 Essential (primary) hypertension; F17.210 Nicotine dependence, cigarettes, uncomplicated; E11.65 Type 2 diabetes mellitus with hyperglycemia; Z20.822 Contact with and (suspected) exposure to COVID-19; I16.0 Hypertensive urgency; I48.0 Paroxysmal atrial fibrillation; M51.369 Other intervertebral disc degeneration, lumbar region without mention of lumbar back pain or lower extremity pain; F12.10 Cannabis abuse, uncomplicated; N30.90 Cystitis, unspecified without hematuria; E78.2 Mixed hyperlipidemia; E87.6 Hypokalemia; J20.9 Acute bronchitis, unspecified; Z99.3 Dependence on wheelchair; Z83.3 Family history of diabetes mellitus; Z86.73 Personal history of transient ischemic attack (TIA), and cerebral infarction without residual deficits; Z80.9 Family history of malignant neoplasm, unspecified
CPT/HCPCS: 36415; 71045; 80053; 80307; 81001; 82306; 82607; 82962; 83735; 84439; 84443; 84481; 84484; 85025; 85379; 85610; 85730; 87081; 87086; 87426; 87804; 93005; 94640; 96374; 96375; 97110; 97116; 97163; 97530; G0378; J1815; J2405

== ENCOUNTER 2024-01-14 09:31 | Emergency (ER) | payer BC, MEDICAID ==
[~2024-01-14] VITALS: Ht 160 cm; Wt 54.5 kg
[~2024-01-14 09:31] MED LIST changes: +AZIT500T PO; -CIPR-173 PO; -LEVO500T91 PO; -NAP500T PO; +PRED20TA2 PO
[2024-01-14 10:00] VITALS: O2SAT 100
[2024-01-14 10:29] LABS: Basophils # (auto) 0.1 10 ^3/uL (0-0.2); Basophils % (auto) 1.2 % (0.0-2.0); Eosinophils # (auto) 0 10 ^3/uL (0-0.8); Eosinophils % (auto) 0.4 % (0.0-7.0); Hematocrit 44.1 % (36.0-46.0); Hemoglobin 15.3 g/dL (12.2-16.2); Lymphocytes # (auto) 1.3 10 ^3/uL (0.4-5.4); Lymphocytes % (auto) 14.1 % (10.0-50.0); Mean Corpuscular Hemoglobin 30.9 pg (28.0-32.0); Mean Corpuscular Hgb Conc. 34.6 g/dL (32.0-36.0); Mean Corpuscular Volume 89.2 fL (80.0-100.0); Monocytes # (auto) 0.6 10 ^3/uL (0-1.3); Monocytes % (auto) 6.5 % (0.0-12.0); Neutrophils # (auto) 7.1 10 ^3/uL (1.6-8.6); Neutrophils % (auto) 77.8 % (37.0-80.0); Platelet Count (auto) 377 10^3/uL (140-450); Red Blood Cells 4.95 10^6/uL (4.0-5.20); Red Cell Distribution Width 13.3 % (11.8-14.3); White Blood Cell 9.1 10^3/uL (4.4-10.8)
[2024-01-14 10:37] LABS: Alanine Aminotransferase 20 U/L (7-40); Albumin 5.2 g/dL (3.2-4.8); Alkaline Phosphatase 74 U/L (46-116); Anion Gap 14 (5-15); Aspartate Aminotransferase 11 U/L (13-40); BUN/Creatinine Ratio 11.5 (10.0-20.0); Bilirubin, Total 0.6 mg/dL (0.2-1.0); Blood Urea Nitrogen 7 mg/dL (9-23); Calcium 10.4 mg/dL (8.7-10.4); Carbon Dioxide 23 mmol/L (20-31); Chloride 98 mmol/L (98-107); Glucose 240 mg/dL (74-106); Potassium 3.5 mmol/L (3.5-5.1); Sodium 135 mmol/L (136-145); Total Protein 7.7 g/dL (5.7-8.2)
[2024-01-14] MEDS: KETOROLAC TROMETH 30 MG/ML 1ML VIAL IV ONE (12:19)
[2024-01-14] MEDS: SODIUM CHLORIDE 0.9% 1,000 ML IV ONE (12:19)
[2024-01-14 13:50] LABS: Urine Bacteria None Seen /hpf (None Seen)
[2024-01-14 14:00] VITALS: BP 174/89; PULSE 93; RESP 18; O2SAT 99
[2024-01-14 14:16] LABS: Urine Blood TRACE /uL (Negative); Urine Clarity Clear (Clear); Urine Color Yellow (Yellow); Urine Mucus FEW (None Seen); Urine Protein, UAD 1+ (Negative); Urine Specific Gravity 1.024 (1.001-1.035); Urine Urobilinogen 2 mg/dL (Negative); Urine WBC 2 /hpf (0 - 5); Urine pH 6.5 (5.0-9.0)
[2024-01-14 14:17] LABS: Amphetamine Screen, Urine Neg (NEGATIVE); Barbiturate Scree,Urine Neg (NEGATIVE); Benzodiazephine Screen, Urine Neg (NEGATIVE); Cannabinoid Screen, Urine Pos (NEGATIVE); Cocaine Screen, Urine Neg (NEGATIVE); Opiate Scree,Urine Pos (NEGATIVE); Phencyclidine Screen, Urine Neg (NEGATIVE)
[2024-01-14] MEDS: MAGNESIUM SULFATE 1GM/100ML 100 ML IV ONE (15:20)
== END 2024-01-14 14:30 | disposition home or self-care (01) ==
LOC: ER 09:31 → EDBD 09:31 → ER 14:30
DX: G89.29 Other chronic pain (principal); M54.9 Dorsalgia, unspecified; E83.42 Hypomagnesemia; E11.65 Type 2 diabetes mellitus with hyperglycemia; I10 Essential (primary) hypertension; F17.210 Nicotine dependence, cigarettes, uncomplicated; R07.89 Other chest pain; Z79.84 Long term (current) use of oral hypoglycemic drugs; Z79.899 Other long term (current) drug therapy; Z86.73 Personal history of transient ischemic attack (TIA), and cerebral infarction without residual deficits; Z98.890 Other specified postprocedural states
CPT/HCPCS: 36415; 71045; 80053; 80307; 80320; 81001; 83690; 83735; 84484; 85025; 93005; 96361; 96365; 96375; 99285; J1885; J3475; J7030

== ENCOUNTER 2024-03-10 08:13 | Inpatient (IN) | payer BC, MEDICAID ==
[~2024-03-10] VITALS: Ht 162.6 cm; Wt 63.2 kg
[2024-03-10] MEDS: SODIUM CHLORIDE 0.9% 1,000 ML IV ONE ×2 (08:45)
--- NOTE | 2024-03-10 08:47 | ED.PDOC ---
Back pain HPI HPI Comments 53Y F with PMHx DM, HTN, and HLD presents to ED via EMS for chief complaint low rt-sided back pain that has become worse since last night. Additional symptoms include stomach cramps, nausea, vomiting, constipation, headache, and dizziness. Pt states she feels like she is going to pass out and has been unable to have a bowel movement/pass gas. Pt denies dysuria, chest pain, and SOB. Pt denies any falls/trauma. Pt believes her magnesium level is low. Chief Complaint: Back Pain Time Seen by MD: 08:29 Primary Care Provider: unknown Reviewed Notes: Medications, Allergies Allergies: Coded Allergies: NO KNOWN ALLERGIES (Unverified , 11/14/23) Home Meds Active Scripts Azithromycin (Zithromax) 500 Mg Tab, 1 TAB PO DAILY, #3 TAB Prov:ANDREIA HAWK RESIDENT 01/05/24 Prednisone (Prednisone) 20 Mg Tab, 40 MG PO DAILY for 3 Days, #6 TAB Prov:ANDREIA HAWK RESIDENT 01/05/24 Hydrocodone-Acetaminophen (Hydrocodone Bitartrate/AC 5-325 mg) 1 Tab Tab, 1 TAB PO QID PRN, #30 TAB Prov:JIL BARBOUR MD 11/18/23 Reported Medications Atorvastatin Calcium (ATORVASTATIN CALCIUM) 40 Mg Tab, 1 TAB PO DAILY 11/19/22 Nortriptyline Hcl (PAMELOR CAPSULE) 25 Mg Cp, 1 CAP PO 11/19/22 Insulin Lispro (Insulin Lispro) 100 Unit/Ml Inj, 10 UNIT SC TID, INJ 08/07/22 Gabapentin (Gabapentin) 600 Mg Tab, 600 MG PO TID, TAB 08/07/22 Lisinopril (Lisinopril) 20 Mg Tab, 20 MG PO DAILY, TAB 08/07/22 Metformin Hydrochloride (METFORMIN HCL ER) 500 Mg Tab, 500 MG PO BID, TAB 08/07/22 Information Source: Patient, Emergency Med Personnel Mode of Arrival: EMS Brought in by: EMS Timing: Hours Duration: Since onset Location of Back pain: (R) Lower back Severity: Severe Prehospital treatment: None Quality: Sharp Onset: Spontaneous History of: Chronic Back Pain Modifying Factors: Nothing Associated signs and symptoms: Nausea, Vomiting, Other Past Medical History PAST MEDICAL HISTORY: DM, High Lipids, HTN, TIA Surgical History: 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: 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 Family History Family History: Family hx of DM, Family hx of Cancer Social History Smoker: Cigarettes, Less Than 1 Pack/Day Alcohol: Denies ETOH Use Drugs: Marijuana Lives In: Home Constitutional: denies: chills, diaphoresis, fatigue, fever, malaise, sweats, weakness, others EENTM: denies: blurred vision, double vision, ear bleeding, ear discharge, ear drainage, ear pain, ear ringing, eye pain, eye redness, hearing loss, mouth pain, mouth swelling, nasal discharge, nose bleeding, nose congestion, nose pain, photophobia, tearing, throat pain, throat swelling, voice changes, others Respiratory: denies: cough, hemoptysis, orthopnea, SOB at rest, shortness of breath, SOB with excertion, stridor, wheezing, others Cardiovascular: denies: chest pain, dizzy spells, diaphoresis, Dyspnea on exertion, edema, irregular heart beat, left arm pain, lightheadedness, palpitations, PND, syncope, others Gastrointestinal: reports: constipated, nausea, vomiting; denies: abdomen distended, abdominal pain, blood streaked bowels, diarrhea, dysphagia, difficulty swallowing, hematemesis, melena, poor appetite, poor fluid intake, re ctal bleeding, rectal pain, others Genitourinary: denies: abnormal vagina bleeding, burning, dyspareunia, dysuria, flank pain, frequency, hematuria, incontinence, pain, , vagina discharge, urgency, others Neurological: reports: dizziness, headache; denies: fainting, left sided numbness, left sided weakness, numbness, paresthesia, pre-existing deficit, right sided numbness, right sided weakness, seizure, speech problems, tingling, tremors, weakness, others Musculoskeletal: reports: back pain, muscle stiffness, others (muscle cramps); denies: gout, joint pain, joint swelling, muscle pain, neck pain Integumetry: denies: bruises, change in color, change in hair/nails, dryness, laceration, lesions, lumps, rash, wounds, others Allergic/Immunocompromised: denies: Difficulty Healing, Frequent Infections, Hives, Itching, others Hematologic/Lymphatic: denies: anemia, blood clots, easy bleeding, easy brui sing, swollen glands, others Endocrine: denies: excessive hunger, excessive sweating, excessive thirst, ex cessive urination, flushing, intolerance to cold, intolerance to heat, unexplained weight gain, unexplained weight loss, others Psychiatric: denies: anxiety, bipolar disorder, depression, hopeless, panic disorder, schizophrenia, sleepless, suicidal, others All Other Systems: Reviewed and Negative Physical Exam General Appearance: Moderate Distress, Normal HEENT: Normal ENT Inspection, Pharynx Normal, TMs Normal Neck: Full Range of Motion, Non-Tender, Normal, Normal Inspection Respiratory: Chest Non-Tender, Lungs Clear, No Accessory Muscle Use, No Respiratory Distress, Normal Breath Sounds Cardiovascular: No Edema, No JVD, No Murmur, No Gallop, Normal Peripheral Pulses, Regular Rate/Rhythm Breast Exam: Deferred Gastrointestinal: No Organomegaly, Non Tender, No Pulsatile Mass, Normal Bowel Sounds, Soft Genitalia: Deferred Pelvic: Deferred Rectal: Deferred Extremities: No calf tenderness, Normal capillary refill, Normal inspection, Normal range of motion, Non-tender, No pedal edema Musculoskeletal : Apperance: Normal Neurologic: Alert, log peeler II-XII nml as Tested, No Motor Deficits, Normal Affect, Normal Mood, No Sensory Deficits Cerebellar Function: NOT DONE Reflexes: NOT DONE Skin: Dry, Normal Color, Warm Peripheral Pulses: 3+ Radial (R), 3+ Radial (L) Lymphatic: No Adenopathy Was a procedure done? Was a procedure done?: No Back Pain Differential Dx Differential Diagnosis: Musculoskeletal Pain, Urinary Obstruction, Urolithiasis X-Ray, Labs, Meds, VS Vital Signs Date Time Temp Pulse Resp B/P (MAP) Pulse Ox O2 Delivery O2 Flow Rate FiO2 03/10/24 10:29 108 19 98 Room Air* 0 21 03/10/24 10:02 106 22 162/88 03/10/24 10:00 108 19 162/88 (112) 99 03/10/24 09:33 98.3 109 22 169/88 (115) 96 98.3 03/10/24 09:32 107 22 169/88 03/10/24 08:16 98.2 128 20 169/112 (131) 98 Lab Test 03/10/24 09:45 03/10/24 09:00 03/10/24 08:38 Range/Units White Blood Count 10.9 H 4.4-10.8 10^3/uL Red Blood Count 4.88 4.0-5.20 10^6/uL Hemoglobin 15.1 12.2-16.2 g/dL Hematocrit 43.5 36.0-46.0 % Mean Corpuscular Volume 89.2 80.0-100.0 fL Mean Corpuscular Hemoglobin 30.9 28.0-32.0 pg Mean Corpuscular Hemoglobin Concent 34.6 32.0-36.0 g/dL Red Cell Distribution Width 13.7 11.8-14.3 % Platelet Count 400 140-450 10^3/uL Mean Platelet Volume 7.8 6.9-10.8 fL Neutrophils (%) (Auto) 85.7 H 37.0-80.0 % Lymphocytes (%) (Auto) 8.3 L 10.0-50.0 % Monocytes (%) (Auto) 4.8 0.0-12.0 % Eosinophils (%) (Auto) 0.2 0.0-7.0 % Basophils (%) (Auto) 1.0 0.0-2.0 % Neutrophils # (Auto) 9.4 H 1.6-8.6 10 ^3/uL Lymphocytes # (Auto) 0.9 0.4-5.4 10 ^3/uL Monocytes # (Auto) 0.5 0-1.3 10 ^3/uL Eosinophils # (Auto) 0 0-0.8 10 ^3/uL Basophils # (Auto) 0.1 0-0.2 10 ^3/uL Nucleated Red Blood Cells 0.0 % Sodium Level 136 136-145 mmol/L Potassium Level 3.2 L 3.5-5.1 mmol/L Chloride Level 96 L 98-107 mmol/L Carbon Dioxide Level 22 20-31 mmol/L Anion Gap 18 H 5-15 Blood Urea Nitrogen 8 L 9-23 mg/dL Creatinine 0.71 0.550-1.02 mg/dL Glomerular Filtration Rate Calc 101 >90 mL/min BUN/Creatinine Ratio 11.3 10.0-20.0 Serum Glucose 286 H 74-106 mg/dL Calcium Level 10.9 H 8.7-10.4 mg/dL Magnesium Level 1.3 L 1.6-2.6 mg/dL Urine Color Light-yellow Yellow Urine Clarity Turbid H Clear Urine pH 5.5 5.0-9.0 Urine Specific [place] 1.017 1.001-1.035 Urine Protein Negative Negative Urine Ketones Negative Negative Urine Blood Trace H Negative /uL Urine Nitrite Negative Negative Urine Bilirubin Negative Negative Urine Urobilinogen Normal Negative mg/dL Urine Leukocyte Esterase 1+ Negative /uL Urine RBC 6 0 - 4 /hpf Urine WBC 6 0 - 5 /hpf Urine Squamous Epithelial Cells Few <5 /hpf Urine Bacteria None seen None Seen /hpf Urine Glucose Normal Normal mg/dL POC Glucose 316 H 70-106 mg/dl Current Medications Medications (Trade) Dose Ordered Sig/Thom Route Start Time Stop Time Status Last Admin Sodium Chloride 1,000 ml @ 1,000 mls/hr Q1H ONCE IV 03/10/24 08:45 03/10/24 09:44 DC 03/10/24 08:45 Sodium Chloride 1,000 ml @ 150 mls/hr Q6H40M ONCE IV 03/10/24 08:45 03/10/24 15:24 03/10/24 08:45 Morphine Sulfate 4 mg ONCE ONCE IV 03/10/24 09:15 03/10/24 09:16 DC 03/10/24 09:32 Ondansetron HCl (Zofran) 4 mg ONCE ONCE IV 03/10/24 09:15 03/10/24 09:16 DC 03/10/24 09:32 Patient alert. Complaining of back pain. Blood pressure elevated. Vitals stable. Blood sugar elevated. Establish intravenous access. Was given fluids. Was given insulin. Was given morphine. Was given Zofran. Reviewed her previous visit. Explained to the patient. Continue cardiac monitoring. Time of 1ST Reevaluation: 08:59 Reevaluation 1ST: Unchanged Patient Education/Counseling: Diagnosis, Treatment Family Education/Counseling: No Family Present Additional Information I reviewed the following notes from patient's past medical encounters: [facility] disc harge 01/05/2024, 11/18/2023, 11/20/2022 The following tests were ordered, and results were reviewed by me: CBC, BMP, UA, Magnesium Additional Information was gathered from interviewing the following independent historians: EMS I discussed treatment and results with medical personnel. Departure 1 Departure Time of Disposition: 09:04 Impression: Primary Impression: Uncontrolled diabetes mellitus Qualified Codes: E13.65 - Other specified diabetes mellitus with hyperglycemia Additional Impression: Intractable vomiting Disposition: ADMITTED INPATIENT Admit to: Med Surg Condition: Guarded Critical Care Note Critical Care Time?: Yes (45 min-critical care time only) Stability Stability form required: No Heart Score Heart Score: Heart Score Response (Comments) Value History N/A 0 EKG N/A 0 Age N/A 0 Risk Factors N/A 0 Troponin N/A 0 Total 0 I personally scribed for CAROLIN FORDE MD ([email or web address]) on 03/10/24 at 08:47. Electronically submitted by Jessica Rapp ([employer]). I personally scribed for CAROLIN FORDE MD ([email or web address]) on 03/10/24 at 09:06. Electronically submitted by Jessica Rapp ([employer]). CAROLIN FORDE MD Mar 10, 2024 08:47
[2024-03-10 09:15] LABS: Urine Bacteria None Seen /hpf (None Seen)
[2024-03-10 09:29] LABS: Urine Blood TRACE /uL (Negative); Urine Clarity Turbid (Clear); Urine Color Light-Yellow (Yellow); Urine Protein, UAD Negative (Negative); Urine Specific Gravity 1.017 (1.001-1.035); Urine Urobilinogen Normal (Negative); Urine WBC 6 /hpf (0 - 5); Urine pH 5.5 (5.0-9.0)
[2024-03-10] MEDS: ONDANSETRON HCL 4 MG/2 ML VIAL IV ONE (09:32)
[2024-03-10] MEDS: MORPHINE SULFATE 4 MG/ML SYR/VIAL IV ONE (09:32)
[2024-03-10 10:08] LABS: Basophils # (auto) 0.1 10 ^3/uL (0-0.2); Eosinophils # (auto) 0 10 ^3/uL (0-0.8); Eosinophils % (auto) 0.2 % (0.0-7.0); Hematocrit 43.5 % (36.0-46.0); Hemoglobin 15.1 g/dL (12.2-16.2); Lymphocytes # (auto) 0.9 10 ^3/uL (0.4-5.4); Lymphocytes % (auto) 8.3 % (10.0-50.0); Mean Corpuscular Hemoglobin 30.9 pg (28.0-32.0); Mean Corpuscular Hgb Conc. 34.6 g/dL (32.0-36.0); Mean Corpuscular Volume 89.2 fL (80.0-100.0); Monocytes # (auto) 0.5 10 ^3/uL (0-1.3); Monocytes % (auto) 4.8 % (0.0-12.0); Neutrophils # (auto) 9.4 10 ^3/uL (1.6-8.6); Neutrophils % (auto) 85.7 % (37.0-80.0); Platelet Count (auto) 400 10^3/uL (140-450); Red Blood Cells 4.88 10^6/uL (4.0-5.20); Red Cell Distribution Width 13.7 % (11.8-14.3); White Blood Cell 10.9 10^3/uL (4.4-10.8)
[2024-03-10 10:18] LABS: Sodium 136 mmol/L (136-145)
[2024-03-10 10:19] LABS: Anion Gap 18 (5-15); Carbon Dioxide 22 mmol/L (20-31)
[2024-03-10 10:25] LABS: BUN/Creatinine Ratio 11.3 (10.0-20.0); Blood Urea Nitrogen 8 mg/dL (9-23); Calcium 10.9 mg/dL (8.7-10.4); Chloride 96 mmol/L (98-107); Glucose 286 mg/dL (74-106); Magnesium 1.3 mg/dL (1.6-2.6); Potassium 3.2 mmol/L (3.5-5.1)
[2024-03-10 10:29] VITALS: PULSE 108; RESP 19; O2SAT 98
--- NOTE | 2024-03-10 10:46 | DVHHP2 ---
History of Present Illness Reason for Visit: feels mag is low d/t symptom, back pain and nv and constipation History of Present Illness 53 yr old female pmh DM type 2, DKA, hypertension, hyperlipidemia, history of pyelonephritis, TIA, paroxysmal AFib, nicotine dependence and degenerative disc disease status post L4-L5 spacer 1 year back, COPD PSHx: L4/L5 spacer placed [address] gordon at [facility] cc patient was here with a twin sisters the bedside she is very anxious on my exam and she was expressive when she speaks about her condition but she was feels like her magnesium is low she was not sure bran low she has not been able to identify was causing her magnesium level to drop but she states he has been here dealing with this issue for some time and usually when she starts having all kinds of symptoms like low back pain stomach cramping nausea and vomiting constipation and dizziness that is when her magnesium level is low. Patient states she has chronic back pain she was wheelchair bound. She did state she did vomit today but there was no blood in her vomit or diarrhea. She also states she has not had good bowel movement in quite some time in the few days. She denies any chest pain no shortness with the breath no tearing sensation in her abdomen or chest there was no thunderclap headache was severe headache. When evaluating patient's labs and imaging looks like Zofran was given morphine normal saline white count was found to be 10.2 potassium was 3.2 chloride was 96 gap was slightly elevated Mag was 1.3 calcium was 10.9 glucose was 286 urine showed no ketones. Patient was currently a smoker by history. With these findings we will admit patient for further workup and care Past Medical History See HPI above Past Surgical History See HPI above Family History Reviewed, non-contributory to the management of this case. Past Social History The patient lives at home, denies smoking, alcohol or illicit drugs abuse. Review of Systems Constitutional: No: Fever, Chills, Sweats, Weakness, Malaise, Other Eyes: No: Pain, Vision change, Conjunctivae inflammation, Eyelid inflammation, Other, Redness ENT: No: Ear pain, Ear discharge, Nose pain, Nose discharge, Nose congestion, Mouth pain, Mouth swelling, Throat pain, Throat swelling, Other Respiratory: No: Cough, Dry, Shortness of breath, SOB with excertion, Wheezing, Hemoptysis, Pleuritic Pain, Sputum, Wheezing, Other Cardiovascular: No: Chest Pain, Palpitations, Orthopnea, Paroxysmal Noc. Dyspnea, Edema, Lt Headedness, Other Gastrointestinal: Nausea, Vomiting, Constipation; No: Abdominal Pain, Diarrhea, Melena, Hematochezia, Other Genitourinary: No Dysuria, No Frequency, No Incontinence, No Hematuria, No Retention, No Other Musculoskeletal: No: other, neck pain, shoulder pain, arm pain, back pain, hand pain, leg pain, foot pain Skin: No: Rash, Lesions, Jaundice, Bruising, Other Neurological: Weakness; No: Numbness, Incoordination, Change in speech, Confusion, Seizures, Other Allergies: Coded Allergies: NO KNOWN ALLERGIES (Unverified , 11/14/23) Exam Vital Signs Vital Signs Date Time Temp Pulse Resp B/P (MAP) Pulse Ox O2 Delivery O2 Flow Rate FiO2 03/10/24 10:29 108 19 98 Room Air* 0 21 03/10/24 10:02 162/88 03/10/24 09:33 98.3 98.3 General Appearance: Alert, Oriented X3, Other (Very anxious on my exam) Respiratory: Clear to auscultation, Normal air movement Cardiovascular: Regular rate, Normal S1, Normal S2, No murmurs Abdominal: Normal bowel sounds, Soft, No tenderness, No hepatospenomegaly, No masses Extremities: No clubbing, No cyanosis, No edema, Normal pulses, No tenderness/swelling Skin: No rashes, No breakdown, No significant lesion Neuro: Other (Appeared to have some neuro declined to her fingers she does have foot drop seen to her lower extremities patient states she does get around in his wheelchair at home) Psych/Mental Status: Other (Hyperverbal and very anxious on exam) Labs/Xrays I reviewed labs, imaging CT scan abdomen pelvis, EKG and all diagnostic studies on this patient from ED records and the medical chart Labs Test 03/10/24 09:45 03/10/24 09:00 03/10/24 08:38 Range/Units White Blood Count 10.9 H 4.4-10.8 10^3/uL Red Blood Count 4.88 4.0-5.20 10^6/uL Hemoglobin 15.1 12.2-16.2 g/dL Hematocrit 43.5 36.0-46.0 % Mean Corpuscular Volume 89.2 80.0-100.0 fL Mean Corpuscular Hemoglobin 30.9 28.0-32.0 pg Mean Corpuscular Hemoglobin Concent 34.6 32.0-36.0 g/dL Red Cell Distribution Width 13.7 11.8-14.3 % Platelet Count 400 140-450 10^3/uL Mean Platelet Volume 7.8 6.9-10.8 fL Neutrophils (%) (Auto) 85.7 H 37.0-80.0 % Lymphocytes (%) (Auto) 8.3 L 10.0-50.0 % Monocytes (%) (Auto) 4.8 0.0-12.0 % Eosinophils (%) (Auto) 0.2 0.0-7.0 % Basophils (%) (Auto) 1.0 0.0-2.0 % Neutrophils # (Auto) 9.4 H 1.6-8.6 10 ^3/uL Lymphocytes # (Auto) 0.9 0.4-5.4 10 ^3/uL Monocytes # (Auto) 0.5 0-1.3 10 ^3/uL Eosinophils # (Auto) 0 0-0.8 10 ^3/uL Basophils # (Auto) 0.1 0-0.2 10 ^3/uL Nucleated Red Blood Cells 0.0 % Sodium Level 136 136-145 mmol/L Potassium Level 3.2 L 3.5-5.1 mmol/L Chloride Level 96 L 98-107 mmol/L Carbon Dioxide Level 22 20-31 mmol/L Anion Gap 18 H 5-15 Blood Urea Nitrogen 8 L 9-23 mg/dL Creatinine 0.71 0.550-1.02 mg/dL Glomerular Filtration Rate Calc 101 >90 mL/min BUN/Creatinine Ratio 11.3 10.0-20.0 Serum Glucose 286 H 74-106 mg/dL Calcium Level 10.9 H 8.7-10.4 mg/dL Magnesium Level 1.3 L 1.6-2.6 mg/dL Urine Color Light-yellow Yellow Urine Clarity Turbid H Clear Urine pH 5.5 5.0-9.0 Urine Specific [place] 1.017 1.001-1.035 Urine Protein Negative Negative Urine Ketones Negative Negative Urine Blood Trace H Negative /uL Urine Nitrite Negative Negative Urine Bilirubin Negative Negative Urine Urobilinogen Normal Negative mg/dL Urine Leukocyte Esterase 1+ Negative /uL Urine RBC 6 0 - 4 /hpf Urine WBC 6 0 - 5 /hpf Urine Squamous Epithelial Cells Few <5 /hpf Urine Bacteria None seen None Seen /hpf Urine Glucose Normal Normal mg/dL POC Glucose 316 H 70-106 mg/dl Assessment/Plan Assessment/Plan acute early dka Mild elevation of the gap but CO2 is negative Order Accu-Chek every 4 hours with sliding scale for now Order IV fluids for now Order beta OH follow up results Acute hypertension emergency Patient was provided hydralazine and labetalol prior to my admission We will continue home meds lisinopril and add Norvasc Order hydralazine and labetalol if needed for elevated blood pressure Provided Ativan as needed for anxiety Encouraged morphine as needed for pain acute intractable n/v without abdominal pain but with dehydration No CT scan was completed we will order Order Zofran to help with nausea and vomiting Strict I&Os cont ivf for now Acute Hypokalemia Repeat potassium Repleted potassium Acute on chronic Hypomagnesemia Repleted magnesium Order follow up Mag in the a.m. chronic problems Uncontrolled DM type 2 with ISS and accucheck q4h for now Mixed hyperlipidemia Spinal degenerative disease, status post spacer placed 1 year back Essential hypertension Cannabinoid use disorder with encouragement of abstinence fen/ppx diet ivf scd lovenox plan admit to tele for replete of electrolytes Plan discussed with: Patient Date of Service: Mar 10, 2024 Billing Provider: CHRIS JARA DNP Common Visit Codes: [id number] INP/OBS CARE (HIGH) CHRIS JARA DNP Mar 10, 2024 10:46
[2024-03-10] MEDS ORDERED: DEXTROSE (50%) 50ML SYRG IV PRN (11:15)
[2024-03-10] MEDS ORDERED: IPRATROPIUM BROM 0.5 MG/2.5ML INH SOL NEB PRN (11:15)
[2024-03-10] MEDS ORDERED: ALBUTEROL SULF 2.5 MG/0.5ML(0.5%) NEB SOLN NEB PRN (11:15)
[2024-03-10] MEDS ORDERED: NITROGLYCERIN 0.4 MG SL TAB SL PRN (11:15)
[2024-03-10] MEDS: SODIUM CHLORIDE 0.9% 1,000 ML IV SCH (11:15)
[2024-03-10] MEDS: InsuLIN REG 1unit/0.01ml Soln (100units/ml) SC SCH ×2 (11:30→16:54)
[2024-03-10] MEDS: ACCU-CHEK COMFORT CURVE STRIP VI SCH (11:30)
[2024-03-10] MEDS: ONDANSETRON HCL 4 MG/2 ML VIAL IV PRN (11:37)
[2024-03-10] MEDS: LORazepam 2MG/ML-1ML VIAL IV ONE ×2 (11:38→15:09)
[2024-03-10] MEDS: CALCIUM GLUC 1,000mg/50ml-NS 50 ML IV ONE (12:15)
[2024-03-10] MEDS: MAGNESIUM SULFATE 1GM/100ML 100 ML IV SCH (12:15)
[2024-03-10] MEDS: POTASSIUM EFFERVESENT TAB 25 MEQ PO ONE (12:15)
[2024-03-10] MEDS: ENOXAPARIN SOD 40 MG/0.4 ML SYRINGE SC SCH (12:15)
[2024-03-10] MEDS: LISINOPRIL 20 MG TAB PO SCH (13:13)
[2024-03-10] MEDS: hydrALAZINE HCL 20 MG/ML VL IV PRN (13:14)
[2024-03-10] MEDS: LISINOPRIL 20 MG TAB PO ONE (13:15)
[2024-03-10] MEDS: GABAPENTIN 300 MG CAP PO SCH (14:21)
[2024-03-10 14:42] VITALS: BP 174/96; PULSE 115; RESP 19; O2SAT 99
[2024-03-10] MEDS: amLODIPine BESYLATE 5 MG TAB PO ONE (15:08)
[2024-03-10] MEDS: LABETALOL HCL 20 MG/4 ML VL IV ONE (15:48)
[2024-03-10 18:10] VITALS: PULSE 89; RESP 20
[2024-03-10 20:00] VITALS: PULSE 91
[2024-03-10] MEDS: MORPHINE SULFATE INJ 2 MG/ml SYRG IV PRN (20:33)
[2024-03-10 21:00] VITALS: BP 140/74; PULSE 86; RESP 19; TEMP 98; O2SAT 99
[2024-03-10] MEDS: LORazepam 2MG/ML-1ML VIAL IV PRN (22:05)
[2024-03-10 22:15] VITALS: PULSE 85; RESP 16; O2SAT 99
[2024-03-11] VITALS (8 sets, daily range): BP systolic 143–170; BP diastolic 79–97; PULSE 88–111; RESP 13–19; TEMP 97.5–98.2; O2SAT 92–100
[2024-03-11] MEDS: DOCUSATE SOD 100 MG CAP PO PRN (05:48)
[2024-03-11 06:27] LABS: Basophils # (auto) 0.1 10 ^3/uL (0-0.2); Eosinophils # (auto) 0.1 10 ^3/uL (0-0.8); Eosinophils % (auto) 1.1 % (0.0-7.0); Hematocrit 37.7 % (36.0-46.0); Lymphocytes # (auto) 1.8 10 ^3/uL (0.4-5.4); Mean Corpuscular Hemoglobin 30.4 pg (28.0-32.0); Mean Corpuscular Hgb Conc. 34.4 g/dL (32.0-36.0); Mean Corpuscular Volume 88.2 fL (80.0-100.0); Monocytes # (auto) 0.8 10 ^3/uL (0-1.3); Monocytes % (auto) 8.8 % (0.0-12.0); Neutrophils # (auto) 6.3 10 ^3/uL (1.6-8.6); Neutrophils % (auto) 69.1 % (37.0-80.0); Nucleated Red Blood Cells % 0.1 %; Platelet Count (auto) 325 10^3/uL (140-450); Red Blood Cells 4.28 10^6/uL (4.0-5.20); Red Cell Distribution Width 13.8 % (11.8-14.3); White Blood Cell 9.1 10^3/uL (4.4-10.8)
[2024-03-11 06:49] LABS: Alanine Aminotransferase 14 U/L (7-40); Albumin 4.2 g/dL (3.2-4.8); Alkaline Phosphatase 68 U/L (46-116); Anion Gap 11 (5-15); Calcium 9.6 mg/dL (8.7-10.4); Carbon Dioxide 24 mmol/L (20-31); Chloride 103 mmol/L (98-107); Sodium 138 mmol/L (136-145)
[2024-03-11 06:50] LABS: Bilirubin, Total 0.6 mg/dL (0.2-1.0); Total Protein 6.5 g/dL (5.7-8.2)
[2024-03-11 06:55] LABS: Aspartate Aminotransferase 12 U/L (13-40); Blood Urea Nitrogen 9 mg/dL (9-23); Glucose 182 mg/dL (74-106); Potassium 2.7 mmol/L (3.5-5.1)
[2024-03-11] MEDS: ATORVASTATIN 20 MG TAB PO SCH (10:16)
[2024-03-11] MEDS: NORTRIPTYLINE HCL 25 MG CAP PO SCH (11:14)
--- NOTE | 2024-03-11 11:32 | DVHPN2 ---
Subjective Weakness Reviewed: Care Plan, H&P, Labs, Medications, Previous Orders, Radiology Changes from previous H/P or p: No Changes Eyes: No Pain, No Vision change, No Conjunctivae inflammation, No Eyelid inflammation, No Other, No Redness ENT: No Ear pain, No Ear discharge, No Nose pain, No Nose discharge, No Nose congestion, No Mouth pain, No Mouth swelling, No Throat pain, No Throat swelling, No Other Cardiovascular: No Chest Pain, No Palpitations, No Orthopnea, No Paroxysmal Noc. Dyspnea, No Edema, No Lt Headedness, No Other Respiratory: No Cough, No Dry, No Shortness of breath, No SOB with excertion, No Wheezing, No Hemoptysis, No Pleuritic Pain, No Sputum, No Other Gastrointestinal: Nausea, Vomiting; No Abdominal Pain, No Diarrhea; C onstipation; No Melena, No Hematochezia, No Other Genitourinary: No Dysuria, No Frequency, No Incontinence, No Hematuria, No Retention, No Other Musculoskeletal: No other, No neck pain, No shoulder pain, No arm pain, No back pain, No hand pain, No leg pain, No foot pain Skin: No Rash, No Lesions, No Jaundice, No Bruising, No Other Objective Vitals Vital Signs Date Time Temp Pulse Resp B/P (MAP) Pulse Ox O2 Delivery O2 Flow Rate FiO2 03/11/24 10:05 100 Room Air 03/11/24 10:05 0 21 03/11/24 09:00 97.7 88 13 148/79 (102) 97.7 Intake/Output Intake and Output 03/11/24 07:00 Intake Total 3770 ml Balance 3770 ml Intake Oral 0 ml IV Total 3770 ml # Voids 2 Medications Current Medications Medications Dose Ordered Sig/Thom Route Start Time Stop Time Status Last Admin Dose Admin Lorazepam 0.5 mg Q6HP PRN IV 03/10/24 11:15 03/11/24 11:19 0.5 MG Lisinopril 20 mg DAILY PO 03/11/24 10:00 03/10/24 13:13 20 MG Nortriptyline HCl 25 mg DAILY PO 03/11/24 10:00 03/11/24 11:14 25 MG Atorvastatin Calcium 40 mg DAILY PO 03/11/24 10:00 03/11/24 10:16 40 MG Gabapentin 600 mg TID PO 03/10/24 14:00 03/11/24 05:48 600 MG Diagnostic Test (Pha) 1 strip ACHS 03/10/24 11:30 03/11/24 05:50 1 STRIP Dextrose 50 ml UD PRN IV 03/10/24 11:15 Albuterol 2.5 mg Q6HPRN PRN NEB 03/10/24 11:15 Ipratropium Hospers 0.5 mg Q6HPRN PRN NEB 03/10/24 11:15 Sodium Chloride 1,000 ml @ 120 mls/hr Q8H20M IV 03/10/24 11:15 03/11/24 05:41 120 MLS/HR Ondansetron HCl 4 mg Q4HP PRN IV 03/10/24 11:15 03/11/24 11:16 4 MG Docusate Sodium 100 mg BIDPRN PRN PO 03/10/24 11:15 03/11/24 05:48 100 MG Morphine Sulfate 4 mg Q4HPRN PRN IV 03/10/24 11:15 03/10/24 20:33 4 MG Enoxaparin Sodium 40 mg DAILY SC 03/10/24 11:15 03/11/24 10:17 40 MG Nitroglycerin 0.4 mg Q5MINP PRN SL 03/10/24 11:15 Hydralazine HCl 10 mg Q6HP PRN IV 03/10/24 11:15 03/10/24 13:14 10 MG Insulin Human Regular Q4HR SC 03/10/24 16:30 03/11/24 10:00 3 UNITS Laboratory Results Laboratory Tests 03/11/24 06:02 Chemistry Test 03/11/24 06:02 Albumin 4.2 g/dL (3.2-4.8) Calcium Level 9.6 mg/dL (8.7-10.4) Total Protein 6.5 g/dL (5.7-8.2) LFT Test 03/11/24 06:02 Alanine Aminotransferase (ALT) 14 U/L (7-40) Alkaline Phosphatase 68 U/L (46-116) Aspartate Amino Transferase (AST) 12 U/L (13-40) L Total Bilirubin 0.6 mg/dL (0.2-1.0) Urinalysis Test 03/10/24 09:00 Urine Color Light-yellow (Yellow) Urine Clarity Turbid (Clear) H Urine pH 5.5 (5.0-9.0) Urine Specific [place] 1.017 (1.001-1.035) Urine Protein Negative (Negative) Urine Ketones Negative (Negative) Urine Blood Trace /uL (Negative) H Urine Nitrite Negative (Negative) Urine Bilirubin Negative (Negative) Urine Urobilinogen Normal mg/dL (Negative) Urine Leukocyte Esterase 1+ /uL (Negative) Urine RBC 6 /hpf (0 - 4) Urine WBC 6 /hpf (0 - 5) Urine Squamous Epithelial Cells Few /hpf (<5) Urine Bacteria None seen /hpf (None Seen) Urine Glucose Normal mg/dL (Normal) Labs and/or images reviewed: Labs reviewed by me, Image(s) reviewed by me Assessment/Plan Assessment/Plan Acute diabetic ketoacidosis: Insulin sliding scale Hypertensive emergency Intractable nausea and vomiting Acute hypokalemia potassium 2.7: Replace potassium Chronic hypomagnesemia magnesium 1.3: Replace magnesium Uncontrolled diabetes blood sugars in the range of 316, A1c Hypertension Hypercholesterolemia History of TIA History of pyelonephritis AFib Chronic DJD L4-5 status post surgery COPD Chronic current smoker: Counseling Bed-bound Time taken 65 minutes Patient is full code Advanced care planning time 20 minutes Spoke with patient's son Omar on the phone, he is respiratory therapist at [employer]. Plan discussed with: Patient Date of Service: Mar 11, 2024 Billing Provider: JIL BARBOUR MD Common Visit Codes: [id number] CARE 30-74 MIN JIL BARBOUR MD Mar 11, 2024 11:32
--- NOTE | 2024-03-11 12:38 | DVH ---
CT ABDOMEN AND PELVIS WITHOUT CONTRAST CLINICAL HISTORY: Abdominal pain nausea and vomiting TECHNIQUE: Multiple contiguous axial images of the abdomen and pelvis without intravenous contrast. The images were reformatted degenerate coronal and sagittal reconstructions. All CT scans at this medical facility are performed using dose modulation techniques as appropriate t o a performed exam including the following:Automated exposure control was utilized; adjustment of the MA and/or KV according to patient size; and use of iterative reconstruction technique. Radiation Dose Information: CT Dose: CTDI volume is 5 mGy. Dose-length product is 299 mGy*cm Comparison: None FINDINGS: Evaluation of the abdomen and pelvis is limited without intravenous contrast. Bilateral adrenal glands appear thickened likely related to hyperplasia. The liver, gallbladder, pa ncreas, kidneys, and spleen appear within normal limits. There is no gross evidence of abdominal lymphadenopathy. There is no free fluid or free air. The stomach grossly appears unremarkable. The small and large bowel loops demonstrate normal caliber . A normal-appearing appendix is seen in the right lower quadrant abdomen without inflammatory greco es. The abdominal aorta and IVC appear within normal limits. The bladder appears unremarkable for the degree of distention. Pelvic organ appears within normal silverio its. There is no gross evidence of a pelvic mass. There is no free fluid collection. Lung bases are clear. There is no acute osseous abnormality. IMPRESSION: 1. There is no acute process in the abdomen and pelvis. HS:Y
[2024-03-11] MEDS: POTASSIUM CHL 20MEQ/100ML 100 ML IV SCH (12:40)
[2024-03-11] MEDS: POTASSIUM EFFERVESENT TAB 25 MEQ PO ONE (12:55)
[2024-03-11] MEDS: MAGNESIUM SULFATE 1GM/100ML 100 ML IV SCH ×2 (13:00→18:00)
[2024-03-11] MEDS ORDERED: DEXTROSE (50%) 50ML SYRG IV PRN (13:30)
[2024-03-11] MEDS: ACCU-CHEK COMFORT CURVE STRIP VI SCH (16:19)
[2024-03-11] MEDS: InsuLIN REG 1unit/0.01ml Soln (100units/ml) SC SCH (16:25)
[2024-03-12] VITALS (11 sets, daily range): BP systolic 131–149; BP diastolic 67–93; PULSE 68–104; RESP 16–19; TEMP 97.1–98.2; O2SAT 96–99
--- NOTE | 2024-03-12 09:41 | DVHPN2 ---
Subjective Weakness Reviewed: Care Plan, H&P, Labs, Medications, Previous Orders, Radiology Changes from previous H/P or p: No Changes Eyes: No Pain, No Vision change, No Conjunctivae inflammation, No Eyelid inflammation, No Other, No Redness ENT: No Ear pain, No Ear discharge, No Nose pain, No Nose discharge, No Nose congestion, No Mouth pain, No Mouth swelling, No Throat pain, No Throat swelling, No Other Cardiovascular: No Chest Pain, No Palpitations, No Orthopnea, No Paroxysmal Noc. Dyspnea, No Edema, No Lt Headedness, No Other Respiratory: No Cough, No Dry, No Shortness of breath, No SOB with excertion, No Wheezing, No Hemoptysis, No Pleuritic Pain, No Sputum, No Other Gastrointestinal: Nausea, Vomiting; No Abdominal Pain, No Diarrhea; C onstipation; No Melena, No Hematochezia, No Other Genitourinary: No Dysuria, No Frequency, No Incontinence, No Hematuria, No Retention, No Other Musculoskeletal: No other, No neck pain, No shoulder pain, No arm pain, No back pain, No hand pain, No leg pain, No foot pain Skin: No Rash, No Lesions, No Jaundice, No Bruising, No Other Objective Vitals Vital Signs Date Time Temp Pulse Resp B/P (MAP) Pulse Ox O2 Delivery O2 Flow Rate FiO2 03/12/24 08:00 89 18 Room Air* 0 21 03/12/24 05:17 139/69 03/12/24 05:00 98.1 96 98.1 Intake/Output Intake and Output 03/12/24 07:00 Intake Total 3458 ml Balance 3458 ml Intake Oral 2108 ml IV Total 1350 ml # Voids 7 Medications Current Medications Medications Dose Ordered Sig/Thom Route Start Time Stop Time Status Last Admin Dose Admin Lorazepam 0.5 mg Q6HP PRN IV 03/10/24 11:15 03/12/24 04:46 0.5 MG Lisinopril 20 mg DAILY PO 03/11/24 10:00 03/10/24 13:13 20 MG Nortriptyline HCl 25 mg DAILY PO 03/11/24 10:00 03/11/24 11:14 25 MG Atorvastatin Calcium 40 mg DAILY PO 03/11/24 10:00 03/11/24 10:16 40 MG Gabapentin 600 mg TID PO 03/10/24 14:00 03/12/24 05:51 600 MG Albuterol 2.5 mg Q6HPRN PRN NEB 03/10/24 11:15 Ipratropium [place] 0.5 mg Q6HPRN PRN NEB 03/10/24 11:15 Sodium Chloride 1,000 ml @ 120 mls/hr Q8H20M IV 03/10/24 11:15 03/12/24 05:09 120 MLS/HR Ondansetron HCl 4 mg Q4HP PRN IV 03/10/24 11:15 03/12/24 04:46 4 MG Docusate Sodium 100 mg BIDPRN PRN PO 03/10/24 11:15 03/12/24 05:51 100 MG Morphine Sulfate 4 mg Q4HPRN PRN IV 03/10/24 11:15 03/12/24 04:47 4 MG Enoxaparin Sodium 40 mg DAILY SC 03/10/24 11:15 03/11/24 10:17 40 MG Nitroglycerin 0.4 mg Q5MINP PRN SL 03/10/24 11:15 Hydralazine HCl 10 mg Q6HP PRN IV 03/10/24 11:15 03/11/24 16:21 10 MG Diagnostic Test (Pha) 1 strip ACHS 03/11/24 17:00 03/12/24 06:15 1 STRIP Insulin Human Regular ACHS SC 03/11/24 17:00 03/12/24 06:14 2 UNITS Dextrose 50 ml UD PRN IV 03/11/24 13:30 Laboratory Results Laboratory Tests 03/11/24 06:02 Urinalysis Test 03/10/24 09:00 Urine Color Light-yellow (Yellow) Urine Clarity Turbid (Clear) H Urine pH 5.5 (5.0-9.0) Urine Specific [place] 1.017 (1.001-1.035) Urine Protein Negative (Negative) Urine Ketones Negative (Negative) Urine Blood Trace /uL (Negative) H Urine Nitrite Negative (Negative) Urine Bilirubin Negative (Negative) Urine Urobilinogen Normal mg/dL (Negative) Urine Leukocyte Esterase 1+ /uL (Negative) Urine RBC 6 /hpf (0 - 4) Urine WBC 6 /hpf (0 - 5) Urine Squamous Epithelial Cells Few /hpf (<5) Urine Bacteria None seen /hpf (None Seen) Urine Glucose Normal mg/dL (Normal) Labs and/or images reviewed: Labs reviewed by me, Image(s) reviewed by me Assessment/Plan Assessment/Plan Acute diabetic ketoacidosis: Insulin sliding scale Hypertensive emergency Intractable nausea and vomiting, CT abdomen pelvis without contrast negative Acute hypokalemia potassium 2.7: Replace potassium Chronic hypomagnesemia magnesium 1.3: Replace magnesium, consult for Nephrology Uncontrolled diabetes blood sugars in the range of 316, A1c 7.4 Hypertension Hypercholesterolemia History of TIA History of pyelonephritis AFib 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 PCP Dr Ellsworth Plan discussed with: Patient My Orders Orders - JIL BARBOUR MD Procedure Category Date Status Time Ct Ab Pel Wo Con-No CT 03/11/24 Resulted Oral Or Iv 11:33 *Dr. [facility] CONS 03/11/24 Transmitted -[place] 11:50 Glucose Blood PHA 03/11/24 In Process (Accu-Chek Comfort 17:00 Insulin R (Human) PHA 03/11/24 In Process (Insulin R) 17:00 Dextrose 50% Syringe PHA 03/11/24 In Process 13:30 Date of Service: Mar 12, 2024 Billing Provider: JIL BARBOUR MD Common Visit Codes: [id number] INP/OBS CARE(HIGH) JIL BARBOUR MD Mar 12, 2024 09:41
[2024-03-12] MEDS: MAGNESIUM SULFATE 1GM/100ML 100 ML IV SCH (11:00)
--- NOTE | 2024-03-12 19:56 | DVHINCON2 ---
Date of service: Mar 12, [address] Barbour Reason for Consultation Hypomagensemia History of Present Illness Mrs. Cobian is a 53-year-old female with known history of chronic low back pain, chronic hypomagnesemia who presented for further evaluation and management of worsening low back pain type symptoms. She was seen in her room awake alert conversant and in no visible distress currently. She continued to discuss her chronic problem with low magnesium level and various symptoms that she associates with this. She also reports significant constipation and irregularity with which she has bowel movements. She denies diarrhea, excessive nausea or vomiting recently. Past Medical History hypertension Neuropathy Chronic low back pain Allergies: Coded Allergies: NO KNOWN ALLERGIES (Unverified , 11/14/23) Home Meds Active Scripts Azithromycin (Zithromax) 500 Mg Tab, 1 TAB PO DAILY, #3 TAB Prov:ANDREIA HAWK RESIDENT 01/05/24 Prednisone (Prednisone) 20 Mg Tab, 40 MG PO DAILY for 3 Days, #6 TAB Prov:ANDREIA HAWK RESIDENT 01/05/24 Hydrocodone-Acetaminophen (Hydrocodone Bitartrate/AC 5-325 mg) 1 Tab Tab, 1 TAB PO QID PRN, #30 TAB Prov:JIL BARBOUR MD 11/18/23 Reported Medications Atorvastatin Calcium (ATORVASTATIN CALCIUM) 40 Mg Tab, 1 TAB PO DAILY 11/19/22 Nortriptyline Hcl (PAMELOR CAPSULE) 25 Mg Cp, 1 CAP PO 11/19/22 Insulin Lispro (Insulin Lispro) 100 Unit/Ml Inj, 10 UNIT SC TID, INJ 08/07/22 Gabapentin (Gabapentin) 600 Mg Tab, 600 MG PO TID, TAB 08/07/22 Lisinopril (Lisinopril) 20 Mg Tab, 20 MG PO DAILY, TAB 08/07/22 Metformin Hydrochloride (METFORMIN HCL ER) 500 Mg Tab, 500 MG PO BID, TAB 08/07/22 Current Medications Current Medications Medications (Trade) Dose Ordered Sig/Thom Route PRN Reason Start Time Stop Time Status Last Admin Magnesium Sulfate/ Dextrose 100 ml @ 100 mls/hr Q1HR IV 03/12/24 10:00 03/12/24 13:59 DC 03/12/24 13:00 Family History: Diabetes mellitus G8 MOTHER G8 FATHER Hypertension G8 MOTHER G8 FATHER Review of Systems as per history of present illness otherwise denies recent gross hematuria, dysuria, tea or Coca-Cola colored urine. H&P Exam Vital Signs/I&O Vital Sign Date Time Temp Pulse Resp B/P (MAP) Pulse Ox O2 Delivery O2 Flow Rate FiO2 03/12/24 19:46 92 19 97 Room Air* 0 21 03/12/24 18:05 97.1 141/81 (101) 97.1 Intake and Output 03/11/24 03/12/24 19:00 07:00 Intake Total 2158 ml 1300 ml Balance 2158 ml 1300 ml Intake Oral 1808 ml 300 ml IV Total 350 ml 1000 ml # Voids 3 4 Physical Exam gen: no acute distress appears stated age heent: mmm lungs: Cta cvs: no rub abd: nontender ext: no edema skin: no petechiae neuro: Awake and alert Labs/Diagnostic Data Labs/Diagnostic Data Laboratory Tests Test 03/12/24 17:45 03/12/24 05:58 03/11/24 20:25 03/11/24 09:59 Range/Units POC Glucose 196 H 157 H 229 H 199 H 70-106 mg/dl Test 03/11/24 06:02 03/11/24 05:52 03/10/24 22:12 03/10/24 16:49 Range/Units White Blood Count 9.1 4.4-10.8 10^3/uL Red Blood Count 4.28 4.0-5.20 10^6/uL Hemoglobin 13.0 12.2-16.2 g/dL Hematocrit 37.7 # 36.0-46.0 % Mean Corpuscular Volume 88.2 80.0-100.0 fL Mean Corpuscular Hemoglobin 30.4 28.0-32.0 pg Mean Corpuscular Hemoglobin Concent 34.4 32.0-36.0 g/dL Red Cell Distribution Width 13.8 11.8-14.3 % Platelet Count 325 140-450 10^3/uL Mean Platelet Volume 7.5 6.9-10.8 fL Neutrophils (%) (Auto) 69.1 37.0-80.0 % Lymphocytes (%) (Auto) 20.0 10.0-50.0 % Monocytes (%) (Auto) 8.8 0.0-12.0 % Eosinophils (%) (Auto) 1.1 0.0-7.0 % Basophils (%) (Auto) 1.0 0.0-2.0 % Neutrophils # (Auto) 6.3 1.6-8.6 10 ^3/uL Lymphocytes # (Auto) 1.8 0.4-5.4 10 ^3/uL Monocytes # (Auto) 0.8 0-1.3 10 ^3/uL Eosinophils # (Auto) 0.1 0-0.8 10 ^3/uL Basophils # (Auto) 0.1 0-0.2 10 ^3/uL Nucleated Red Blood Cells 0.1 % Sodium Level 138 136-145 mmol/L Potassium Level 2.7 L 3.5-5.1 mmol/L Chloride Level 103 98-107 mmol/L Carbon Dioxide Level 24 20-31 mmol/L Anion Gap 11 5-15 Blood Urea Nitrogen 9 9-23 mg/dL Creatinine 0.53 L 0.550-1.02 mg/dL Glomerular Filtration Rate Calc 110 >90 mL/min BUN/Creatinine Ratio 17.0 10.0-20.0 Serum Glucose 182 H 74-106 mg/dL Hemoglobin A1c 7.4 H <5.7 % A1C Calcium Level 9.6 8.7-10.4 mg/dL Magnesium Level 1.4 L 1.6-2.6 mg/dL Total Bilirubin 0.6 0.2-1.0 mg/dL Aspartate Amino Transferase (AST) 12 L 13-40 U/L Alanine Aminotransferase (ALT) 14 7-40 U/L Alkaline Phosphatase 68 46-116 U/L Total Protein 6.5 5.7-8.2 g/dL Albumin 4.2 3.2-4.8 g/dL POC Glucose 187 H 130 H 222 H 70-106 mg/dl Test 03/10/24 12:11 03/10/24 09:45 03/10/24 09:00 03/10/24 08:38 Range/Units POC Glucose 278 H 316 H 70-106 mg/dl White Blood Count 10.9 H 4.4-10.8 10^3/uL Red Blood Count 4.88 4.0-5.20 10^6/uL Hemoglobin 15.1 12.2-16.2 g/dL Hematocrit 43.5 36.0-46.0 % Mean Corpuscular Volume 89.2 80.0-100.0 fL Mean Corpuscular Hemoglobin 30.9 28.0-32.0 pg Mean Corpuscular Hemoglobin Concent 34.6 32.0-36.0 g/dL Red Cell Distribution Width 13.7 11.8-14.3 % Platelet Count 400 140-450 10^3/uL Mean Platelet Volume 7.8 6.9-10.8 fL Neutrophils (%) (Auto) 85.7 H 37.0-80.0 % Lymphocytes (%) (Auto) 8.3 L 10.0-50.0 % Monocytes (%) (Auto) 4.8 0.0-12.0 % Eosinophils (%) (Auto) 0.2 0.0-7.0 % Basophils (%) (Auto) 1.0 0.0-2.0 % Neutrophils # (Auto) 9.4 H 1.6-8.6 10 ^3/uL Lymphocytes # (Auto) 0.9 0.4-5.4 10 ^3/uL Monocytes # (Auto) 0.5 0-1.3 10 ^3/uL Eosinophils # (Auto) 0 0-0.8 10 ^3/uL Basophils # (Auto) 0.1 0-0.2 10 ^3/uL Nucleated Red Blood Cells 0.0 % Sodium Level 136 136-145 mmol/L Potassium Level 3.2 L 3.5-5.1 mmol/L Chloride Level 96 L 98-107 mmol/L Carbon Dioxide Level 22 20-31 mmol/L Anion Gap 18 H 5-15 Blood Urea Nitrogen 8 L 9-23 mg/dL Creatinine 0.71 0.550-1.02 mg/dL Glomerular Filtration Rate Calc 101 >90 mL/min BUN/Creatinine Ratio 11.3 10.0-20.0 Serum Glucose 286 H 74-106 mg/dL Calcium Level 10.9 H 8.7-10.4 mg/dL Magnesium Level 1.3 L 1.6-2.6 mg/dL Beta-Hydroxybutyric Acid 3.803 H < 0.4 mmol/L Urine Color Light-yellow Yellow Urine Clarity Turbid H Clear Urine pH 5.5 5.0-9.0 Urine Specific [place] 1.017 1.001-1.035 Urine Protein Negative Negative Urine Ketones Negative Negative Urine Blood Trace H Negative /uL Urine Nitrite Negative Negative Urine Bilirubin Negative Negative Urine Urobilinogen Normal Negative mg/dL Urine Leukocyte Esterase 1+ Negative /uL Urine RBC 6 0 - 4 /hpf Urine WBC 6 0 - 5 /hpf Urine Squamous Epithelial Cells Few <5 /hpf Urine Bacteria None seen None Seen /hpf Urine Glucose Normal Normal mg/dL Assessment IMP: 1) acute on chronic hypomagnesemia - unclear etiology, risk factors do include diabetes, possible poor po intake, +/- excessive renal losses she is without open therapy with diuretics however. 2) Neuropathy 3) Chronic back pain REC: - Initiation of maintenance oral magnesium supplementation - Bowel regimen - will continue to follow. With you during hospitalization. Discussed plan of care with Mrs. Cobian. Plan discussed with: Patient CHLOE HENDRIX MD Mar 12, 2024 19:56
[2024-03-12] MEDS: DOCUSATE SOD 100 MG CAP PO SCH (21:00)
[2024-03-12] MEDS: MAGNESIUM OXIDE 400 MG TAB PO SCH (21:00)
[2024-03-12] MEDS: SENNA 8.6 MG TAB PO SCH (21:00)
[2024-03-13] VITALS (12 sets, daily range): BP systolic 110–171; BP diastolic 62–99; PULSE 71–107; RESP 16–19; TEMP 97.7–98.1; O2SAT 92–99
--- NOTE | 2024-03-13 09:52 | DVHPN2 ---
Subjective Weakness Reviewed: Care Plan, H&P, Labs, Medications, Previous Orders, Radiology Changes from previous H/P or p: No Changes Eyes: No Pain, No Vision change, No Conjunctivae inflammation, No Eyelid inflammation, No Other, No Redness ENT: No Ear pain, No Ear discharge, No Nose pain, No Nose discharge, No Nose congestion, No Mouth pain, No Mouth swelling, No Throat pain, No Throat swelling, No Other Cardiovascular: No Chest Pain, No Palpitations, No Orthopnea, No Paroxysmal Noc. Dyspnea, No Edema, No Lt Headedness, No Other Respiratory: No Cough, No Dry, No Shortness of breath, No SOB with excertion, No Wheezing, No Hemoptysis, No Pleuritic Pain, No Sputum, No Other Gastrointestinal: Nausea, Vomiting; No Abdominal Pain, No Diarrhea; C onstipation; No Melena, No Hematochezia, No Other Genitourinary: No Dysuria, No Frequency, No Incontinence, No Hematuria, No Retention, No Other Musculoskeletal: No other, No neck pain, No shoulder pain, No arm pain, No back pain, No hand pain, No leg pain, No foot pain Skin: No Rash, No Lesions, No Jaundice, No Bruising, No Other Objective Vitals Vital Signs Date Time Temp Pulse Resp B/P (MAP) Pulse Ox O2 Delivery O2 Flow Rate FiO2 03/13/24 09:10 97 Room Air* 0 21 03/13/24 08:13 90 139/77 (97) 03/13/24 08:08 18 03/13/24 05:00 97.7 97.7 Intake/Output Intake and Output 03/13/24 07:00 Intake Total 3188 ml Output Total 1800 ml Balance 1388 ml Intake Oral 1888 ml IV Total 1300 ml Output Urine Total 1800 ml # Voids 3 Medications Current Medications Medications Dose Ordered Sig/Thom Route Start Time Stop Time Status Last Admin Dose Admin Lorazepam 0.5 mg Q6HP PRN IV 03/10/24 11:15 03/13/24 02:09 0.5 MG Lisinopril 20 mg DAILY PO 03/11/24 10:00 03/12/24 09:38 20 MG Nortriptyline HCl 25 mg DAILY PO 03/11/24 10:00 03/12/24 09:38 25 MG Atorvastatin Calcium 40 mg DAILY PO 03/11/24 10:00 03/12/24 09:38 40 MG Gabapentin 600 mg TID PO 03/10/24 14:00 03/12/24 21:01 600 MG Albuterol 2.5 mg Q6HPRN PRN NEB 03/10/24 11:15 Ipratropium [place] 0.5 mg Q6HPRN PRN NEB 03/10/24 11:15 Sodium Chloride 1,000 ml @ 120 mls/hr Q8H20M IV 03/10/24 11:15 03/13/24 00:30 120 MLS/HR Ondansetron HCl 4 mg Q4HP PRN IV 03/10/24 11:15 03/13/24 02:09 4 MG Morphine Sulfate 4 mg Q4HPRN PRN IV 03/10/24 11:15 03/13/24 02:10 4 MG Enoxaparin Sodium 40 mg DAILY SC 03/10/24 11:15 03/12/24 09:39 40 MG Nitroglycerin 0.4 mg Q5MINP PRN SL 03/10/24 11:15 Hydralazine HCl 10 mg Q6HP PRN IV 03/10/24 11:15 03/11/24 16:21 10 MG Diagnostic Test (Pha) 1 strip ACHS 03/11/24 17:00 03/12/24 21:01 1 STRIP Insulin Human Regular ACHS SC 03/11/24 17:00 03/12/24 21:02 6 UNITS Dextrose 50 ml UD PRN IV 03/11/24 13:30 Sennosides 17.2 mg HS PO 03/12/24 22:00 03/12/24 21:00 17.2 MG Docusate Sodium 100 mg BID PO 03/12/24 22:00 03/12/24 21:00 100 MG Magnesium Oxide 800 mg BID PO 03/12/24 22:00 03/12/24 21:00 800 MG Laboratory Results Laboratory Tests 03/11/24 06:02 Urinalysis Test 03/10/24 09:00 Urine Color Light-yellow (Yellow) Urine Clarity Turbid (Clear) H Urine pH 5.5 (5.0-9.0) Urine Specific [place] 1.017 (1.001-1.035) Urine Protein Negative (Negative) Urine Ketones Negative (Negative) Urine Blood Trace /uL (Negative) H Urine Nitrite Negative (Negative) Urine Bilirubin Negative (Negative) Urine Urobilinogen Normal mg/dL (Negative) Urine Leukocyte Esterase 1+ /uL (Negative) Urine RBC 6 /hpf (0 - 4) Urine WBC 6 /hpf (0 - 5) Urine Squamous Epithelial Cells Few /hpf (<5) Urine Bacteria None seen /hpf (None Seen) Urine Glucose Normal mg/dL (Normal) Labs and/or images reviewed: Labs reviewed by me, Image(s) reviewed by me Assessment/Plan Assessment/Plan Acute diabetic ketoacidosis: Insulin sliding scale Hypertensive emergency Intractable nausea and vomiting, CT abdomen pelvis without contrast negative Acute hypokalemia potassium 2.7: Replace potassium Chronic hypomagnesemia magnesium 1.3: Replace magnesium, consult for Nephrology Dr Abdi , appreciated, advised magnesium oxide 800 mg p.o.bid Uncontrolled diabetes blood sugars in the range of 316, A1c 7.4 Hypertension Hypercholesterolemia Constipation: Lactulose Colace History of TIA History of pyelonephritis AFib 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 PCP Dr Ellsworth Plan discussed with: Patient Date of Service: Mar 13, 2024 Billing Provider: JIL BARBOUR MD Common Visit Codes: [id number] INP/OBS CARE(HIGH) JIL BARBOUR MD Mar 13, 2024 09:52
[2024-03-13 11:12] LABS: Basophils # (auto) 0.1 10 ^3/uL (0-0.2); Basophils % (auto) 1.9 % (0.0-2.0); Eosinophils # (auto) 0.2 10 ^3/uL (0-0.8); Eosinophils % (auto) 3.2 % (0.0-7.0); Hematocrit 33.5 % (36.0-46.0); Hemoglobin 11.7 g/dL (12.2-16.2); Lymphocytes # (auto) 1.5 10 ^3/uL (0.4-5.4); Lymphocytes % (auto) 21.7 % (10.0-50.0); Mean Corpuscular Hemoglobin 30.8 pg (28.0-32.0); Mean Corpuscular Hgb Conc. 34.9 g/dL (32.0-36.0); Mean Corpuscular Volume 88.1 fL (80.0-100.0); Monocytes # (auto) 0.6 10 ^3/uL (0-1.3); Monocytes % (auto) 8.4 % (0.0-12.0); Neutrophils # (auto) 4.5 10 ^3/uL (1.6-8.6); Neutrophils % (auto) 64.8 % (37.0-80.0); Platelet Count (auto) 297 10^3/uL (140-450); Red Cell Distribution Width 13.6 % (11.8-14.3)
[2024-03-13 11:25] LABS: Alanine Aminotransferase 15 U/L (7-40); Albumin 3.7 g/dL (3.2-4.8); Alkaline Phosphatase 70 U/L (46-116); Anion Gap 6 (5-15); Aspartate Aminotransferase 17 U/L (13-40); Bilirubin, Total 0.4 mg/dL (0.2-1.0); Blood Urea Nitrogen 9 mg/dL (9-23); Calcium 9.1 mg/dL (8.7-10.4); Carbon Dioxide 26 mmol/L (20-31); Chloride 102 mmol/L (98-107); Potassium 3.9 mmol/L (3.5-5.1)
[2024-03-13] MEDS: LACTULOSE 20Gm/30ML SOLN PO ONE (11:30)
[2024-03-13 11:32] LABS: Glucose 276 mg/dL (74-106); Magnesium 1.3 mg/dL (1.6-2.6); Sodium 134 mmol/L (136-145); Total Protein 5.4 g/dL (5.7-8.2)
--- NOTE | 2024-03-13 15:50 | DVHPN2 ---
Progress Note Date Seen: Mar 13, 2024 Medical Necessity Reason Pt with a Central, PICC or Fol: No Subjective Review of Systems No new complaints. Patient reports: No new complaints Objective vital signs Vital Sign Date Time Temp Pulse Resp B/P (MAP) Pulse Ox O2 Delivery O2 Flow Rate FiO2 03/13/24 13:52 107 132/71 (91) 03/13/24 13:20 18 97 0.0 21 03/13/24 09:10 Room Air* 03/13/24 05:00 97.7 97.7 Total Intake and Output 03/12/24 03/12/24 03/13/24 15:00 23:00 07:00 Intake Total 420 ml 1738 ml 1030 ml Output Total 1800 ml Balance 420 ml -62 ml 1030 ml medications Current Medications Medications Dose Ordered Sig/Thom Route Start Time Stop Time Status Last Admin Dose Admin Lorazepam 0.5 mg Q6HP PRN IV 03/10/24 11:15 03/13/24 11:29 0.5 MG Lisinopril 20 mg DAILY PO 03/11/24 10:00 03/13/24 09:50 20 MG Nortriptyline HCl 25 mg DAILY PO 03/11/24 10:00 03/12/24 09:38 25 MG Atorvastatin Calcium 40 mg DAILY PO 03/11/24 10:00 03/13/24 09:52 40 MG Gabapentin 600 mg TID PO 03/10/24 14:00 03/12/24 21:01 600 MG Albuterol 2.5 mg Q6HPRN PRN NEB 03/10/24 11:15 Ipratropium [place] 0.5 mg Q6HPRN PRN NEB 03/10/24 11:15 Sodium Chloride 1,000 ml @ 120 mls/hr Q8H20M IV 03/10/24 11:15 03/13/24 09:55 120 MLS/HR Ondansetron HCl 4 mg Q4HP PRN IV 03/10/24 11:15 03/13/24 02:09 4 MG Morphine Sulfate 4 mg Q4HPRN PRN IV 03/10/24 11:15 03/13/24 10:26 4 MG Enoxaparin Sodium 40 mg DAILY SC 03/10/24 11:15 03/13/24 09:49 40 MG Nitroglycerin 0.4 mg Q5MINP PRN SL 03/10/24 11:15 Hydralazine HCl 10 mg Q6HP PRN IV 03/10/24 11:15 03/13/24 11:29 10 MG Diagnostic Test (Pha) 1 strip ACHS 03/11/24 17:00 03/13/24 11:35 1 STRIP Insulin Human Regular ACHS SC 03/11/24 17:00 03/13/24 11:45 4 UNITS Dextrose 50 ml UD PRN IV 03/11/24 13:30 Sennosides 17.2 mg HS PO 03/12/24 22:00 03/12/24 21:00 17.2 MG Docusate Sodium 100 mg BID PO 03/12/24 22:00 03/13/24 09:47 100 MG Magnesium Oxide 800 mg BID PO 03/12/24 22:00 03/13/24 09:47 800 MG Examination Gen: Appears stated age, in no acute distress Lungs: Bilateral air entry, no rales Heart: RRR, normal S1 and S2 Ext: No edema laboratory and microbiology Laboratory Tests 03/13/24 10:40 Test 03/13/24 10:40 Range/Units Serum Glucose 276 H 74-106 mg/dL Labs and/or images reviewed: Labs reviewed by me Problem List/Assessment/Plan Problem List/Assessment/Plan IMP: 1) Acute on chronic hypomagnesemia - unclear etiology, risk factors do include diabetes, possible poor po intake, +/- excessive renal losses she is without open therapy with diuretics however.- ongoing on oral mag oxide 2) Neuropathy 3) Chronic back pain REC: - IV magnesium supplementation x1 dose - Continue oral magnesium supplementation - Chemistry panel, magnesium tomorrow - Continue bowel regimen - We will continue to follow. Plan discussed with: Patient ALESSANDRO MOBLEY [facility] Mar 13, 2024 15:50
[2024-03-13] MEDS: MAGNESIUM SULFATE 1GM/100ML 100 ML IV SCH (17:16)
[2024-03-14 05:00] VITALS: BP 163/96; PULSE 106; RESP 20; TEMP 97.6; O2SAT 100
[2024-03-14 07:30] LABS: Alanine Aminotransferase 15 U/L (7-40); Albumin 4.4 g/dL (3.2-4.8); Alkaline Phosphatase 74 U/L (46-116); Anion Gap 10 (5-15); Aspartate Aminotransferase 14 U/L (13-40); BUN/Creatinine Ratio 9.8 (10.0-20.0); Calcium 9.7 mg/dL (8.7-10.4); Carbon Dioxide 24 mmol/L (20-31); Chloride 103 mmol/L (98-107); Magnesium 1.7 mg/dL (1.6-2.6); Sodium 137 mmol/L (136-145)
[2024-03-14 07:31] LABS: Bilirubin, Total 0.6 mg/dL (0.2-1.0); Total Protein 6.8 g/dL (5.7-8.2)
[2024-03-14 07:37] LABS: Blood Urea Nitrogen 5 mg/dL (9-23); Glucose 163 mg/dL (74-106)
[2024-03-14 07:46] VITALS: O2SAT 98
[2024-03-14 08:00] VITALS: PULSE 102; RESP 16; O2SAT 98
[2024-03-14 09:00] VITALS: BP 185/93; PULSE 96; RESP 17; TEMP 97.8; O2SAT 95
--- NOTE | 2024-03-14 10:45 | DVHDS2 ---
Discharge Summary Date of Admission Mar 10, 2024 at 11:15 Date of Discharge: Mar 14, 2024 Admitting Diagnosis Generalized weakness Wounds: None Labs/Diagnostic Data: Laboratory Results Test 03/14/24 06:19 03/13/24 21:23 03/13/24 10:40 03/11/24 06:02 Sodium Level 137 mmol/L (136-145) Potassium Level 3.0 mmol/L (3.5-5.1) Chloride Level 103 mmol/L (98-107) Carbon Dioxide Level 24 mmol/L (20-31) Anion Gap 10 (5-15) Blood Urea Nitrogen 5 mg/dL (9-23) Creatinine 0.51 mg/dL (0.550-1.02) Glomerular Filtration Rate Calc 111 mL/min (>90) BUN/Creatinine Ratio 9.8 (10.0-20.0) Serum Glucose 163 mg/dL (74-106) Calcium Level 9.7 mg/dL (8.7-10.4) Magnesium Level 1.7 mg/dL (1.6-2.6) Total Bilirubin 0.6 mg/dL (0.2-1.0) Aspartate Amino Transferase (AST) 14 U/L (13-40) Alanine Aminotransferase (ALT) 15 U/L (7-40) Alkaline Phosphatase 74 U/L (46-116) Total Protein 6.8 g/dL (5.7-8.2) Albumin 4.4 g/dL (3.2-4.8) POC Glucose 183 mg/dl (70-106) White Blood Count 7.0 10^3/uL (4.4-10.8) Red Blood Count 3.80 10^6/uL (4.0-5.20) Hemoglobin 11.7 g/dL (12.2-16.2) Hematocrit 33.5 % (36.0-46.0) Mean Corpuscular Volume 88.1 fL (80.0-100.0) Mean Corpuscular Hemoglobin 30.8 pg (28.0-32.0) Mean Corpuscular Hemoglobin Concent 34.9 g/dL (32.0-36.0) Red Cell Distribution Width 13.6 % (11.8-14.3) Platelet Count 297 10^3/uL (140-450) Mean Platelet Volume 7.4 fL (6.9-10.8) Neutrophils (%) (Auto) 64.8 % (37.0-80.0) Lymphocytes (%) (Auto) 21.7 % (10.0-50.0) Monocytes (%) (Auto) 8.4 % (0.0-12.0) Eosinophils (%) (Auto) 3.2 % (0.0-7.0) Basophils (%) (Auto) 1.9 % (0.0-2.0) Neutrophils # (Auto) 4.5 10 ^3/uL (1.6-8.6) Lymphocytes # (Auto) 1.5 10 ^3/uL (0.4-5.4) Monocytes # (Auto) 0.6 10 ^3/uL (0-1.3) Eosinophils # (Auto) 0.2 10 ^3/uL (0-0.8) Basophils # (Auto) 0.1 10 ^3/uL (0-0.2) Nucleated Red Blood Cells 0.0 % Hemoglobin A1c 7.4 % A1C (<5.7) Test 03/10/24 09:45 03/10/24 09:00 Beta-Hydroxybutyric Acid 3.803 mmol/L (< 0.4) Urine Color Light-yellow (Yellow) Urine Clarity Turbid (Clear) Urine pH 5.5 (5.0-9.0) Urine Specific [place] 1.017 (1.001-1.035) Urine Protein Negative (Negative) Urine Ketones Negative (Negative) Urine Blood Trace /uL (Negative) Urine Nitrite Negative (Negative) Urine Bilirubin Negative (Negative) Urine Urobilinogen Normal mg/dL (Negative) Urine Leukocyte Esterase 1+ /uL (Negative) Urine RBC 6 /hpf (0 - 4) Urine WBC 6 /hpf (0 - 5) Urine Squamous Epithelial Cells Few /hpf (<5) Urine Bacteria None seen /hpf (None Seen) Urine Glucose Normal mg/dL (Normal) Other Laboratory Tests 03/14/24 06:19 03/13/24 10:40 Brief Hx & Hospital Course: 3-year-old female with a history of hypertension uncontrolled diabetes hypercholesterolemia history of TIA pyelonephritis AFib COPD 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 2 times a day . Seen by Nephrology advised to continue the same medication. patient being discharged home on magnesium oxide potassium chloride and Percocet she will continue all her previous home meds and follow up with the primary Dr Consults/Reason for consult Nephrology Operations or Procedures None Condition at Discharge: Fair Final Diagnosis/Problems List Acute diabetic ketoacidosis: Insulin sliding scale Hypertensive emergency Intractable nausea and vomiting, CT abdomen pelvis without contrast negative Acute hypokalemia potassium 2.7: Replace potassium Chronic hypomagnesemia magnesium 1.3: Replace magnesium, consult for Nephrology Dr Abdi , appreciated, advised magnesium oxide 800 mg p.o.bid Uncontrolled diabetes blood sugars in the range of 316, A1c 7.4 Hypertension Hypercholesterolemia Constipation: Lactulose Colace History of TIA History of pyelonephritis AFib Chronic DJD L4-5 status post surgery COPD Chronic current smoker: Counseling Bed-bound Discharge Disposition: Home Discharge Instruct/Medications Diet: Cardiac 2g Na,low cholest Activity: Light activity Follow Up/Referral: Follow up With your primary Dr Continue all your previous home medications Medications: Magnesium oxide Potassium chloride Percocet Transmitted to [facility] (Time taken for discharge summary 35 minutes) Discharge Statement: "Patient was advised to return to the ER or call 911 if any headaches, dizziness, shortness of breath, chest pain, abdominal pain, bleeding, fevers, or worsening of medical condition. Patient was counseled about treatment plan, medications, possible side effects, patientverbalized understanding. All questions were answered to the best of my ability. This discharge took greater then 30 minutes in planning, reviewing documentation, counseling the patient, and discussing with other team members." ASSESSMENT ASSESSMENT Hospital Course Improved Assessment Acute diabetic ketoacidosis: Insulin sliding scale Hypertensive emergency Intractable nausea and vomiting, CT abdomen pelvis without contrast negative Acute hypokalemia potassium 2.7: Replace potassium Chronic hypomagnesemia magnesium 1.3: Replace magnesium, consult for Nephrology Dr Abdi , appreciated, advised magnesium oxide 800 mg p.o.bid Uncontrolled diabetes blood sugars in the range of 316, A1c 7.4 Hypertension Hypercholesterolemia Constipation: Lactulose Colace History of TIA History of pyelonephritis AFib Chronic DJD L4-5 status post surgery COPD Chronic current smoker: Counseling Bed-bound Date of Service: Mar 14, 2024 Billing Provider: JIL BARBOUR MD Common Visit Codes: 96738-INJ/OBS DISCH DAY >30min JIL BARBOUR MD Mar 14, 2024 10:45
[2024-03-14] MEDS ORDERED: MAGN400T40 PO (10:46)
[2024-03-14] MEDS ORDERED: POTA-180 PO (10:47)
[2024-03-14] MEDS ORDERED: PERCOT PO (10:47)
[2024-03-14] MEDS: POTASSIUM CHL 20 Meq TABLET PO ONE (11:46)
[2024-03-14 12:15] VITALS: BP 173/88; PULSE 100; RESP 16; TEMP 98.2; O2SAT 95
[2024-03-14 13:03] VITALS: BP 185/93; PULSE 96; RESP 17; TEMP 97.8; O2SAT 95
--- NOTE | 2024-03-14 13:34 | DVHPN2 ---
Progress Note Date Seen: Mar 14, 2024 Medical Necessity Reason Pt with a Central, PICC or Fol: No Subjective Review of Systems No new complaints. Pt will d/c home today Patient reports: No new complaints, Feels better Objective vital signs Vital Sign Date Time Temp Pulse Resp B/P (MAP) Pulse Ox O2 Delivery O2 Flow Rate FiO2 03/14/24 13:03 97.8 96 17 95 03/14/24 12:15 173/88 (116) 03/14/24 08:00 Room Air* 0 21 Total Intake and Output 03/13/24 03/13/24 03/14/24 15:00 23:00 07:00 Intake Total 1740 ml 700 ml Output Total 1100 ml 400 ml Balance 640 ml 300 ml medications Current Medications Medications Dose Ordered Sig/Thom Route Start Time Stop Time Status Last Admin Dose Admin Lorazepam 0.5 mg Q6HP PRN IV 03/10/24 11:15 03/14/24 05:52 0.5 MG Lisinopril 20 mg DAILY PO 03/11/24 10:00 03/14/24 11:03 20 MG Nortriptyline HCl 25 mg DAILY PO 03/11/24 10:00 03/14/24 11:03 25 MG Atorvastatin Calcium 40 mg DAILY PO 03/11/24 10:00 03/14/24 11:02 40 MG Gabapentin 600 mg TID PO 03/10/24 14:00 03/14/24 05:52 600 MG Albuterol 2.5 mg Q6HPRN PRN NEB 03/10/24 11:15 Cancel Ipratropium Carbon 0.5 mg Q6HPRN PRN NEB 03/10/24 11:15 Cancel Sodium Chloride 1,000 ml @ 120 mls/hr Q8H20M IV 03/10/24 11:15 03/14/24 06:29 120 MLS/HR Ondansetron HCl 4 mg Q4HP PRN IV 03/10/24 11:15 03/13/24 20:31 4 MG Morphine Sulfate 4 mg Q4HPRN PRN IV 03/10/24 11:15 03/14/24 05:54 4 MG Enoxaparin Sodium 40 mg DAILY SC 03/10/24 11:15 03/14/24 11:04 40 MG Nitroglycerin 0.4 mg Q5MINP PRN SL 03/10/24 11:15 Hydralazine HCl 10 mg Q6HP PRN IV 03/10/24 11:15 03/14/24 11:45 10 MG Diagnostic Test (Pha) 1 strip ACHS 03/11/24 17:00 03/13/24 21:21 1 STRIP Insulin Human Regular ACHS SC 03/11/24 17:00 03/13/24 21:37 3 UNITS Dextrose 50 ml UD PRN IV 03/11/24 13:30 Sennosides 17.2 mg HS PO 03/12/24 22:00 03/13/24 21:21 17.2 MG Docusate Sodium 100 mg BID PO 03/12/24 22:00 03/14/24 11:14 100 MG Magnesium Oxide 800 mg BID PO 03/12/24 22:00 03/14/24 11:01 800 MG Examination Gen: Appears stated age, in no acute distress Lungs: Bilateral air entry, no rales Heart: RRR, normal S1 and S2 Ext: No edema laboratory and microbiology Laboratory Tests 03/14/24 06:19 03/13/24 10:40 Test 03/14/24 06:19 Range/Units Serum Glucose 163 H 74-106 mg/dL Problem List/Assessment/Plan Problem List/Assessment/Plan IMP: 1) Acute on chronic hypomagnesemia - unclear etiology, risk factors do include diabetes, possible poor po intake, +/- excessive renal losses she is without open therapy with diuretics however.- improved Mg 1.7 2) Neuropathy 3) Chronic back pain REC: - Continue oral magnesium supplementation at home - Continue bowel regimen - Follow up as outpatient. Plan discussed with: Patient, Other ALESSANDRO MOBLEY Mar 14, 2024 13:34
== END 2024-03-14 13:50 | disposition home or self-care (01) | DRG 638 ==
LOC: EDBD 08:13 → ER 08:13 → OVERFLOW 11:15 → TELE 11:44 → TELE-EAST 17:57
PROVIDERS: ADMIT Nurse Practitioner Family; ATTEND Family Medicine
DX: E11.10 Type 2 diabetes mellitus with ketoacidosis without coma (principal); I16.1 Hypertensive emergency; E83.42 Hypomagnesemia; E86.0 Dehydration; E87.6 Hypokalemia; E78.2 Mixed hyperlipidemia; I48.0 Paroxysmal atrial fibrillation; J44.9 Chronic obstructive pulmonary disease, unspecified; F17.210 Nicotine dependence, cigarettes, uncomplicated; E11.40 Type 2 diabetes mellitus with diabetic neuropathy, unspecified; K59.00 Constipation, unspecified; G89.4 Chronic pain syndrome; Z86.73 Personal history of transient ischemic attack (TIA), and cerebral infarction without residual deficits; Z83.3 Family history of diabetes mellitus; Z80.9 Family history of malignant neoplasm, unspecified; Z74.01 Bed confinement status; Z82.49 Family history of ischemic heart disease and other diseases of the circulatory system; Z99.3 Dependence on wheelchair
CPT/HCPCS: 36415; 74176; 80048; 80053; 81001; 82010; 82962; 83036; 83735; 85025; 92610; 96361; 96372; 96374; 96375; 99291; G0378; J1815; J2405; J3480

== ENCOUNTER 2024-08-15 10:36 | Inpatient (IN) | payer MEDICARE, MEDICAID ==
[~2024-08-15] VITALS: Ht 175.3 cm; Wt 60.4 kg
[~2024-08-15 10:36] MED LIST changes: +MAGN400T40 PO; +PERCOT PO; +POTA-180 PO
--- NOTE | 2024-08-15 10:45 | ED.PDOC ---
History of Present Illness HPI Comments 54-year-old female brought in by EMS presents with a chief complaint of back pain x 3 weeks. Patient states that her pain is localized to her lumbar region on the left hand side, nonradiating, describes as aching, and rates her pain a 10/10. Patient mentions that she takes Percocet's from pain management, but they have not been working for her, per patient. Time Seen by MD: 10:38 Primary Care Provider: unknown Reviewed Notes: Medications, Allergies Allergies: Coded Allergies: NO KNOWN ALLERGIES (Unverified , 11/14/23) Home Meds Active Scripts Oxycodone W/ Acetaminophen (Percocet 5/325MG) 1 Tab Tb, 1 TAB PO QID, #30 TAB Prov:JIL BARBOUR MD 03/14/24 Potassium Chloride (Potassium Chloride ER) 20 Meq Tab, 20 MEQ PO DAILY, #30 TAB Prov:JIL BARBOUR MD 03/14/24 Magnesium Oxide (MAGNESIUM OXIDE) 400 Mg Tab, 2 TAB PO BID, #180 TAB 3 Refills Prov:JLI BARBOUR MD 03/14/24 Azithromycin (Zithromax) 500 Mg Tab, 1 TAB PO DAILY, #3 TAB Prov:ANDREIA HAWK RESIDENT 01/05/24 Prednisone (Prednisone) 20 Mg Tab, 40 MG PO DAILY for 3 Days, #6 TAB Prov:ANDREIA HAWK RESIDENT 01/05/24 Hydrocodone-Acetaminophen (Hydrocodone Bitartrate/AC 5-325 mg) 1 Tab Tab, 1 TAB PO QID PRN, #30 TAB Prov:JIL BARBOUR MD 11/18/23 Reported Medications Atorvastatin Calcium (ATORVASTATIN CALCIUM) 40 Mg Tab, 1 TAB PO DAILY 11/19/22 Nortriptyline Hcl (PAMELOR CAPSULE) 25 Mg Cp, 1 CAP PO 11/19/22 Insulin Lispro (Insulin Lispro) 100 Unit/Ml Inj, 10 UNIT SC TID, INJ 08/07/22 Gabapentin (Gabapentin) 600 Mg Tab, 600 MG PO TID, TAB 08/07/22 Lisinopril (Lisinopril) 20 Mg Tab, 20 MG PO DAILY, TAB 08/07/22 Metformin Hydrochloride (METFORMIN HCL ER) 500 Mg Tab, 500 MG PO BID, TAB 08/07/22 Information Source: Patient, Emergency Med Personnel Mode of Arrival: EMS Severity: Moderate Timing: Weeks Duration: Since onset Prehospital treatment: Package Clerk Past Medical History PAST MEDICAL HISTORY: CVA, DM, High Lipids, HTN, TIA Surgical History: MEASUREMENT AND VERIFICATION ENGINEER History: No Pertinent MEASUREMENT AND VERIFICATION ENGINEER History Family History Family History: Family hx of DM, Family hx of Cancer Social History Smoker: Cigarettes, Less Than 1 Pack/Day Alcohol: Denies ETOH Use Drugs: Marijuana Lives In: Home Constitutional: denies: chills, diaphoresis, fatigue, fever, malaise, sweats, weakness, others EENTM: denies: blurred vision, double vision, ear bleeding, ear discharge, ear drainage, ear pain, ear ringing, eye pain, eye redness, hearing loss, mouth pain, mouth swelling, nasal discharge, nose bleeding, nose congestion, nose pain, photophobia, tearing, throat pain, throat swelling, voice changes, others Respiratory: denies: cough, hemoptysis, orthopnea, SOB at rest, shortness of breath, SOB with excertion, stridor, wheezing, others Cardiovascular: denies: chest pain, dizzy spells, diaphoresis, Dyspnea on exertion, edema, irregular heart beat, left arm pain, lightheadedness, palpitations, PND, syncope, others Gastrointestinal: denies: abdomen distended, abdominal pain, blood streaked bowels, constipated, diarrhea, dysphagia, difficulty swallowing, hematemesis, melena, nausea, poor appetite, poor fluid intake, rectal bleeding, rectal pain, vomiting, others Genitourinary: denies: abnormal vagina bleeding, burning, dyspareunia, dysuria, flank pain, frequency, hematuria, incontinence, pain, , vagina discharge, urgency, others Neurological: denies: dizziness, fainting, headache, left sided numbness, left sided weakness, numbness, paresthesia, pre-existing deficit, right sided numbness, right sided weakness, seizure, speech problems, tingling, tremors, weakness, others Musculoskeletal: reports: back pain; denies: gout, joint pain, joint swelling, muscle pain, muscle stiffness, neck pain, others Integumetry: denies: bruises, change in color, change in hair/nails, dryness, laceration, lesions, lumps, rash, wounds, others Allergic/Immunocompromised: denies: Difficulty Healing, Frequent Infections, Hives, Itching, others Hematologic/Lymphatic: denies: anemia, blood clots, easy bleeding, easy bruising, swollen glands, others Endocrine: denies: excessive hunger, excessive sweating, excessive thirst, excessive urination, flushing, intolerance to cold, intolerance to heat, unexplained weight gain, unexplained weight loss, others Psychiatric: denies: anxiety, bipolar disorder, depression, hopeless, panic disorder, schizophrenia, sleepless, suicidal, others All Other Systems: Reviewed and Negative Physical Exam General Appearance: Moderate Distress, Normal HEENT: Normal ENT Inspection, Pharynx Normal, TMs Normal Neck: Full Range of Motion, Non-Tender, Normal, Normal Inspection Respiratory: Chest Non-Tender, Lungs Clear, No Accessory Muscle Use, No Respiratory Distress, Normal Breath Sounds Cardiovascular: No Edema, No JVD, No Murmur, No Gallop, Normal Peripheral Pulses, Regular Rate/Rhythm Breast Exam: Deferred Gastrointestinal: No Organomegaly, Non Tender, No Pulsatile Mass, Normal Bowel Sounds, Soft Genitalia: Deferred Pelvic: Deferred Rectal: Deferred Extremities: Decreased range of motion (Right lower extremity), No calf tenderness, Normal capillary refill, No pedal edema Musculoskeletal : Apperance: Normal Neurologic: Alert, hand mounter II-XII nml as Tested, Motor Weakness (Right lower extremity), Normal Affect, Normal Mood, No Sensory Deficits Cerebellar Function: NOT DONE Reflexes: NOT DONE Skin: Dry, Normal Color, Warm Peripheral Pulses: 3+ Radial (R), 3+ Radial (L) Lymphatic: No Adenopathy Was a procedure done? Was a procedure done?: No Differential Dx Considerations may include: Anemia Electrolyte imbalance X-Ray, Labs, Meds, VS Vital Signs Date Time Temp Pulse Resp B/P (MAP) Pulse Ox O2 Delivery O2 Flow Rate FiO2 08/15/24 12:54 179/99 08/15/24 12:45 97 18 179/99 08/15/24 12:39 97 18 98 Room Air 08/15/24 12:39 97.9 97 18 179/99 (125) 98 97.9 08/15/24 11:27 109 15 162/98 08/15/24 10:36 98.2 102 18 142/98 (113) 98 98.2 Lab Test 08/15/24 11:26 Range/Units White Blood Count 8.3 4.4-10.8 10^3/uL Red Blood Count 4.76 4.0-5.20 10^6/uL Hemoglobin 14.5 12.2-16.2 g/dL Hematocrit 41.7 36.0-46.0 % Mean Corpuscular Volume 87.5 80.0-100.0 fL Mean Corpuscular Hemoglobin 30.5 28.0-32.0 pg Mean Corpuscular Hemoglobin Concent 34.8 32.0-36.0 g/dL Red Cell Distribution Width 13.4 11.8-14.3 % Platelet Count 304 140-450 10^3/uL Mean Platelet Volume 8.0 6.9-10.8 fL Neutrophils (%) (Auto) 73.3 37.0-80.0 % Lymphocytes (%) (Auto) 17.4 10.0-50.0 % Monocytes (%) (Auto) 6.6 0.0-12.0 % Eosinophils (%) (Auto) 1.4 0.0-7.0 % Basophils (%) (Auto) 1.3 0.0-2.0 % Neutrophils # (Auto) 6.1 1.6-8.6 10 ^3/uL Lymphocytes # (Auto) 1.4 0.4-5.4 10 ^3/uL Monocytes # (Auto) 0.5 0-1.3 10 ^3/uL Eosinophils # (Auto) 0.1 0-0.8 10 ^3/uL Basophils # (Auto) 0.1 0-0.2 10 ^3/uL Nucleated Red Blood Cells 0.0 % Sodium Level 138 136-145 mmol/L Potassium Level 4.0 3.5-5.1 mmol/L Chloride Level 103 98-107 mmol/L Carbon Dioxide Level 28 20-31 mmol/L Anion Gap 7 5-15 Blood Urea Nitrogen 7 L 9-23 mg/dL Creatinine 0.70 0.550-1.02 mg/dL Glomerular Filtration Rate Calc 102 >90 mL/min BUN/Creatinine Ratio 10.0 10.0-20.0 Serum Glucose 183 H 74-106 mg/dL Calcium Level 10.6 H 8.7-10.4 mg/dL Current Medications Medications (Trade) Dose Ordered Sig/Thom Route Start Time Stop Time Status Last Admin Sodium Chloride 1,000 ml @ 1,000 mls/hr Q1H ONCE IV 08/15/24 10:45 08/15/24 11:44 DC 08/15/24 11:11 Morphine Sulfate 4 mg ONCE ONCE IV 08/15/24 10:45 08/15/24 10:46 DC 08/15/24 11:27 Ondansetron HCl (Zofran) 4 mg ONCE ONCE IV 08/15/24 10:45 08/15/24 10:46 DC 08/15/24 11:26 Clonidine HCl (Catapres Tablet) 0.2 mg ONCE ONCE PO 08/15/24 12:45 08/15/24 12:46 DC 08/15/24 12:54 Patient alert. Complaining of flank pain. Vitals stable. Answering questions. Continues to have pain. History of CVA. Unable to rotate her right lower extremity. She does take pain medication. Reviewed her history. She does smoke cigarettes. Counseled patient effects of smoking cigarettes for 15 minutes. Explained to the patient. Continue monitoring. Time of 1ST Reevaluation: 11:08 Reevaluation 1ST: Unchanged Patient Education/Counseling: Diagnosis, Treatment Family Education/Counseling: No Family Present Departure 1 Departure Time of Disposition: 10:47 Impression: Primary Impression: Uncontrolled diabetes mellitus Qualified Codes: E13.65 - Other specified diabetes mellitus with hyperglyce reginaldo Additional Impressions: Hypertensive urgency Flank pain Disposition: ADMITTED INPATIENT Admit to: Med Surg Condition: Guarded Critical Care Note Critical Care Time?: No Stability Stability form required: No Heart Score Heart Score: Heart Score Response (Comments) Value History N/A 0 EKG N/A 0 Age N/A 0 Risk Factors N/A 0 Troponin N/A 0 Total 0 I personally scribed for CAROLIN FORDE MD ([email or web address]) on 08/15/24 at 10:45. Electronically submitted by Kelvin Delgado ([email or web address]). CAROLIN FORDE MD Aug 15, 2024 10:45
[2024-08-15] MEDS: SODIUM CHLORIDE 0.9% 1,000 ML IV ONE (11:11)
[2024-08-15] MEDS: ONDANSETRON HCL 4 MG/2 ML VIAL IV ONE ×3 (11:26→21:55)
[2024-08-15] MEDS: MORPHINE SULFATE 4 MG/ML SYR/VIAL IV ONE (11:27)
--- NOTE | 2024-08-15 11:42 | DVH ---
CHEST RADIOGRAPH Indication: sob Technique: Single frontal view of the chest was obtained Comparison: FINDINGS: The cardiac silhouette is unremarkable. The lungs demonstrate no pulmonary airspace consolidation. Th e pulmonary vasculature is unremarkable. There is no pleural effusion.. There is no pneumothorax. IMPRESSION: 1. No pulmonary airspace consolidation.
[2024-08-15 11:45] LABS: Basophils # (auto) 0.1 10 ^3/uL (0-0.2); Basophils % (auto) 1.3 % (0.0-2.0); Eosinophils # (auto) 0.1 10 ^3/uL (0-0.8); Eosinophils % (auto) 1.4 % (0.0-7.0); Hematocrit 41.7 % (36.0-46.0); Hemoglobin 14.5 g/dL (12.2-16.2); Lymphocytes # (auto) 1.4 10 ^3/uL (0.4-5.4); Lymphocytes % (auto) 17.4 % (10.0-50.0); Mean Corpuscular Hemoglobin 30.5 pg (28.0-32.0); Mean Corpuscular Hgb Conc. 34.8 g/dL (32.0-36.0); Mean Corpuscular Volume 87.5 fL (80.0-100.0); Monocytes # (auto) 0.5 10 ^3/uL (0-1.3); Monocytes % (auto) 6.6 % (0.0-12.0); Neutrophils # (auto) 6.1 10 ^3/uL (1.6-8.6); Neutrophils % (auto) 73.3 % (37.0-80.0); Platelet Count (auto) 304 10^3/uL (140-450); Red Blood Cells 4.76 10^6/uL (4.0-5.20); Red Cell Distribution Width 13.4 % (11.8-14.3); White Blood Cell 8.3 10^3/uL (4.4-10.8)
[2024-08-15 11:55] LABS: Anion Gap 7 (5-15); Carbon Dioxide 28 mmol/L (20-31); Chloride 103 mmol/L (98-107); Sodium 138 mmol/L (136-145)
[2024-08-15 12:08] LABS: Blood Urea Nitrogen 7 mg/dL (9-23); Calcium 10.6 mg/dL (8.7-10.4); Glucose 183 mg/dL (74-106)
[2024-08-15] MEDS: cloNIDine HCL 0.1 MG TAB PO ONE (12:54)
[2024-08-15] MEDS: LISINOPRIL 20 MG TAB PO ONE (14:45)
[2024-08-15] MEDS: HYDROmorphone HCL 2 MG/ML VL/or syr IV ONE (15:13)
--- NOTE | 2024-08-15 15:44 | DVHHPRES ---
History of Present Illness Resident Creating Document: TJ FRANCISCO RESIDENT Reason for Visit: left hip pain History of Present Illness Patient is a 54 year old with a past medical history stroke, DM, HTN and drop foot present to the ED with the main complaint of left sided hip pain. According to the patient this pain has been going on for the past 3 weeks and has been progressive and of late, she has been getting stool incontinence. Patient said she sees a pain doctor and takes percocet. Patient denials recent trauma, fever and chilles. She also mentioned that her magnesium and sodium levels are always low. Patient She was treated for UTI about a week ago, but she is not sure if it has resolved. In the ED her initial vitals revealed BP 162/98, rate of 102, WBC was unremarkable currently pending UA and CMP revealed normal sodium and magnesium of 1.4mg/dL PAST MEDICAL HISTORY: stroke, DM, HTN and right foot dropped Past surgical history: x2 Family history: Noncontributory Social history: Smokes 5-6 sticks of cigarettes a day Past Medical History see HPI Past Surgical History see HPI Past Social History See hpi Review of Systems Review of Systems Constitutional: Denies fever no chills no feeling of malaise, in distress HEENT: Denies headache, ear pain, ear discharges, conjunctivitis, nasal discharge throat pain Cardiovascular: Denies chest pain, palpitation, orthopnea, PND, or pedal edema Respiratory: Denies shortness of breath, cough cough, sputum production, hemoptysis, GI: Denies abdominal pain, nausea, vomiting, diarrhea, hematemesis, hematochezia, : Denies frequency, urgency, hematuria, Endocrine: Denies unintentional weight gain or weight loss, feeling of hot flashes, Cristobal: Denies easy bruising, bleeding disorders, epistaxis Musculoskeletal: Denies joint pains, muscle aches, Left hip pain, left leg weak ness Psych: No evidence of depression, chasity, suicidal ideation Allergies: Coded Allergies: NO KNOWN ALLERGIES (Unverified , 11/14/23) Medications Current Medications Medications Dose Ordered Sig/Thom Route Start Time Stop Time Status Last Admin Dose Admin Lisinopril 20 mg DAILY PO 08/16/24 10:00 Oxycodone/ Acetaminophen 1 tab QID PO 08/15/24 18:00 Patient Own Medication 1 tab DAILY PO 08/16/24 10:00 UNV Patient Own Medication 600 mg TID PO 08/15/24 22:00 UNV Patient Own Medication 10 unit TID SC 08/15/24 22:00 Atorvastatin Calcium 40 mg HS PO 08/15/24 22:00 Gabapentin 600 mg TID PO 08/15/24 22:00 Exam Vital Signs Vital Signs Date Time Temp Pulse Resp B/P (MAP) Pulse Ox O2 Delivery O2 Flow Rate FiO2 08/15/24 14:30 176/101 08/15/24 12:45 97 18 08/15/24 12:39 98 Room Air 08/15/24 12:39 97.9 97.9 Exam General Appearance: Alert, Oriented X3, Cooperative, Severe acute distress; severe pain HEENT: Atraumatic, PERRLA, EOMI, Mucous membrane moist/pink Respiratory: Clear to auscultation, Normal air movement Cardiovascular: Regular rate, Normal S1, Normal S2, No murmurs, no chest wall tenderness Abdominal: NO distention, no tenderness, bowel sounds present, no scars noted Extremities: right foot drop, bilateral leg weakness, Skin: No rashes, No breakdown, No significant lesion Neuro: Normal gait, Normal speech, Strength at 5/5 X4 ext, Normal tone, Sensation intact, Cranial nerves 3-12 NL, Reflexes 2+ Psych/Mental Status: Mental status NL, Mood NL Labs/Xrays Labs Test 08/15/24 11:26 Range/Units White Blood Count 8.3 4.4-10.8 10^3/uL Red Blood Count 4.76 4.0-5.20 10^6/uL Hemoglobin 14.5 12.2-16.2 g/dL Hematocrit 41.7 36.0-46.0 % Mean Corpuscular Volume 87.5 80.0-100.0 fL Mean Corpuscular Hemoglobin 30.5 28.0-32.0 pg Mean Corpuscular Hemoglobin Concent 34.8 32.0-36.0 g/dL Red Cell Distribution Width 13.4 11.8-14.3 % Platelet Count 304 140-450 10^3/uL Mean Platelet Volume 8.0 6.9-10.8 fL Neutrophils (%) (Auto) 73.3 37.0-80.0 % Lymphocytes (%) (Auto) 17.4 10.0-50.0 % Monocytes (%) (Auto) 6.6 0.0-12.0 % Eosinophils (%) (Auto) 1.4 0.0-7.0 % Basophils (%) (Auto) 1.3 0.0-2.0 % Neutrophils # (Auto) 6.1 1.6-8.6 10 ^3/uL Lymphocytes # (Auto) 1.4 0.4-5.4 10 ^3/uL Monocytes # (Auto) 0.5 0-1.3 10 ^3/uL Eosinophils # (Auto) 0.1 0-0.8 10 ^3/uL Basophils # (Auto) 0.1 0-0.2 10 ^3/uL Nucleated Red Blood Cells 0.0 % Sodium Level 138 136-145 mmol/L Potassium Level 4.0 3.5-5.1 mmol/L Chloride Level 103 98-107 mmol/L Carbon Dioxide Level 28 20-31 mmol/L Anion Gap 7 5-15 Blood Urea Nitrogen 7 L 9-23 mg/dL Creatinine 0.70 0.550-1.02 mg/dL Glomerular Filtration Rate Calc 102 >90 mL/min BUN/Creatinine Ratio 10.0 10.0-20.0 Serum Glucose 183 H 74-106 mg/dL Calcium Level 10.6 H 8.7-10.4 mg/dL Magnesium Level 1.4 L 1.6-2.6 mg/dL Assessment/Plan Assessment/Plan Assessment Left hip pain Current history of UTI, rule out recurrent Stool incontinence Diabetes mellitus type 2 Hypertension Dropped foot History of ischemic stroke Hypomagnesia Severe malnutrition Tobacco use disorder Plan X-ray of the left hip Repeat urinalysis Ceftriaxone Morphine 4mg q4h, [place] 5/325 Continue diabetes treatment Resume lisinopril 40 mg daily Replace magnesium Hydralazine 10mg prn SBP: 170 Counseled on tobacco use cessation for 17 minutes Nicotine patch Goal of care discussed for 20 minutes: Full code Case and plan discussed with Dr. Arenas Plan discussed with: Patient, Other (sister and RN) My Orders Orders - TJ FRANCISCO RESIDENT Procedure Category Date Status Time Mri L Hip Wo Contrast MRI 08/15/24 Logged 14:20 Lumbar Spine Wo MRI 08/15/24 Logged Contrast 14:20 Admit ADMIT 08/15/24 Transmitted 14:32 Notify Of Changes KAELA 08/15/24 In Process From Base 14:32 Drug Screen LAB 08/15/24 Logged 14:32 Lisinopril Tablet PHA 08/16/24 In Process (Zestril Tablet) 10:00 Oxycodone W/ Acet PHA 08/15/24 In Process 5/325mg Tab (Percocet 18:00 (Nf) Insulin Lispro PHA 08/15/24 In Process 22:00 Atorvastatin (Lipitor) PHA 08/15/24 In Process 22:00 Gabapentin Capsule PHA 08/15/24 In Process (Neurontin Capsule) 22:00 R Hip Complete Xray XY 08/15/24 Logged 14:59 L Hip Complete Xray XY 08/15/24 Logged 14:59 Addendum Addendum Addendum I was physically present for the salcedo portions of the service provided to patient by THE RESIDENT. I have reviewed the documentation, discussed the case with resident and agree with the resident's documentation except as noted. Also the patient's clinical case was discussed with the patient's nurse. This medical document was created using an electronic medical record system with computerized dictation system. Although this document has been carefully reviewed, there might still be some phonetic and typographical errors. These areas are purely typographical due to imperfections of the software programs, and do not reflect any compromise in the patient's medical care. Late signature. Date of Service: Aug 15, 2024 Billing Provider: MARQUIS ARENAS MD Common Visit Codes: [id number] INP/OBS CARE (HIGH) Secondary Visit Codes: [id number] CHNG SMOKING >10MIN (17 minutes), 42930- ADVANCED CARE PLAN 30 MINUTES (20 minutes) TJ FRANCISCO RESIDENT Aug 15, 2024 15:44 MARQUIS ARENAS MD Aug 16, 2024 09:27
[2024-08-15] MEDS ORDERED: HYDROcodone-ACET 5/325MG TAB PO PRN (15:45)
[2024-08-15] MEDS: LISINOPRIL 20 MG TAB PO SCH (15:45)
--- NOTE | 2024-08-15 16:14 | DVH ---
CLINICAL INDICATION: rule out fractures TECHNIQUE: XY R HIP COMPLETE XRAY Comparison: None FINDINGS/IMPRESSION: : There is no evidence of acute fracture or dislocation. Soft tissues are unremarkable. Moderate degenerative changes of bilateral hips.
--- NOTE | 2024-08-15 16:14 | DVH ---
CLINICAL INDICATION: Pain TECHNIQUE: XY L HIP COMPLETE XRAY Comparison: None FINDINGS/IMPRESSION: : There is no evidence of acute fracture or dislocation. Soft tissues are unremarkable. Left central venous catheter in-situ. Intrauterine device in-situ.
[2024-08-15] MEDS: NICOTINE 7MG/24HR TOPICAL PATCH TD ONE (16:19)
[2024-08-15] MEDS: MAGNESIUM SULFATE 1GM/100ML 100 ML IV ONE (16:21)
[2024-08-15 18:15] VITALS: PULSE 101; RESP 20
[2024-08-15] MEDS: OXYCODONE W/ ACETAMINOPHEN 5/325MG TABLET PO SCH (18:32)
[2024-08-15] MEDS: ONDANSETRON ODT 4 MG TAB PO ONE (18:39)
[2024-08-15 21:20] VITALS: BP 195/109; PULSE 101; RESP 19; TEMP 97.4; O2SAT 99
[2024-08-15] MEDS ORDERED: LABETALOL HCL 20 MG/4 ML VL IV PRN (21:45)
[2024-08-15] MEDS ORDERED: PATIENTS OWN MEDICATION (Gabapentin 600 MG) PO SCH (22:00)
[2024-08-15] MEDS: INSULIN LISPRO 100 UNIT/ML SC SCH (22:00)
[2024-08-15] MEDS: GABAPENTIN 300 MG CAP PO SCH (22:00)
[2024-08-15] MEDS: ATORVASTATIN 20 MG TAB PO SCH (22:00)
[2024-08-15] MEDS: amLODIPine BESYLATE 5 MG TAB PO ONE (22:01)
[2024-08-15] MEDS: LABETALOL HCL 20 MG/4 ML VL IV ONE (22:11)
[2024-08-15] MEDS: InsuLIN REG 1unit/0.01ml Soln (100units/ml) SC SCH (23:00)
[2024-08-15] MEDS ORDERED: DEXTROSE (50%) 50ML SYRG IV PRN (23:00)
[2024-08-16] MEDS: ACCU-CHEK COMFORT CURVE STRIP VI SCH
[2024-08-16 05:00] VITALS: BP 149/86; PULSE 85; RESP 19; TEMP 98; O2SAT 100
[2024-08-16 07:44] LABS: Basophils # (auto) 0.1 10 ^3/uL (0-0.2); Basophils % (auto) 1.2 % (0.0-2.0); Eosinophils # (auto) 0.3 10 ^3/uL (0-0.8); Eosinophils % (auto) 2.8 % (0.0-7.0); Hematocrit 39.8 % (36.0-46.0); Hemoglobin 13.9 g/dL (12.2-16.2); Lymphocytes # (auto) 2.2 10 ^3/uL (0.4-5.4); Lymphocytes % (auto) 24.1 % (10.0-50.0); Mean Corpuscular Hemoglobin 30.6 pg (28.0-32.0); Mean Corpuscular Volume 87.5 fL (80.0-100.0); Monocytes # (auto) 0.8 10 ^3/uL (0-1.3); Neutrophils # (auto) 5.8 10 ^3/uL (1.6-8.6); Neutrophils % (auto) 62.9 % (37.0-80.0); Nucleated Red Blood Cells % 0.1 %; Platelet Count (auto) 286 10^3/uL (140-450); Red Blood Cells 4.54 10^6/uL (4.0-5.20); Red Cell Distribution Width 13.1 % (11.8-14.3); White Blood Cell 9.2 10^3/uL (4.4-10.8)
[2024-08-16 07:52] LABS: Anion Gap 7 (5-15); Carbon Dioxide 27 mmol/L (20-31); Chloride 102 mmol/L (98-107); Potassium 3.8 mmol/L (3.5-5.1); Sodium 136 mmol/L (136-145)
[2024-08-16 07:58] LABS: BUN/Creatinine Ratio 12.1 (10.0-20.0)
[2024-08-16 07:59] LABS: Blood Urea Nitrogen 7 mg/dL (9-23); Glucose 159 mg/dL (74-106)
[2024-08-16 08:30] VITALS: BP 157/89; PULSE 85; RESP 18; TEMP 98.9; O2SAT 93
[2024-08-16] MEDS ORDERED: ENOXAPARIN SOD 40 MG/0.4 ML SYRINGE SC ONE (08:30)
[2024-08-16] MEDS ORDERED: ONDANSETRON HCL 4 MG/2 ML VIAL IV ONE (08:45)
--- NOTE | 2024-08-16 08:50 | DVH ---
[facility] [address] [facility] [address] Ph: [phone] DIAGNOSTIC IMAGING Diagnostic Imaging Report : [id number] Signed with Yisel PATIENT: ANDREA FLANAGAN ACCT: [id number] UNIT: [id number] : 1970 [facility] AGE / SEX: 54 / F ADM STATUS: ADM IN SERVICE 1455 ORDERING PHYSICIAN: TJ FRANCISCO RESIDENT PROCEDURE(s): RHIP - R HIP COMPLETE XRAY REASON: rule out fractures ORDER NUMBER(s): [id number], ACCESSION NUMBER(s): [id number] ADDENDUM ADDENDUM # 1 This addendum is to replace the original report. Initially, the images in the exam were reportedly of the incorrect patient and the error could not be fixed before the original report was sent out. CLINICAL INFORMATION: 54 years old, Female; rule out fractures. TECHNIQUE: Single AP view of the pelvis and AP and frog-leg lateral views of each hip were obtained. COMPARISON: None FINDINGS: No acute fracture or dislocation. Moderate joint space narrowing in both hips, right greater than left with associated subchondral sclerosis. No significant soft tissue abnormality identified. Adjacent soft tissues are unremarkable. IMPRESSION: No evidence of acute bony abnormality in the pelvis or bilateral hips. ORIGINAL REPORT CLINICAL INDICATION: rule out fractures TECHNIQUE: XY R HIP COMPLETE XRAY Comparison: None FINDINGS/IMPRESSION: : There is no evidence of acute fracture or dislocation. Soft tissues are unremarkable. Moderate degenerative changes of bilateral hips. ATED BY: AYO OLIVA DO DICTATED DATE/TIME: 08/15/24 175 SIGNED BY: AYO OLIVA DO SIGNED DATE/TIME: 08/15/24 1753 CC: CLINICAL INDICATION: rule out fractures TECHNIQUE: XY R HIP COMPLETE XRAY Comparison: None FINDINGS/IMPRESSION: : There is no evidence of acute fracture or dislocation. Soft tissues are unremarkable. Moderate degenerative changes of bilateral hips. ATED BY: ENOCH LEROY MD DICTATED DATE/TIME: 08/15/24 1612 SIGNED BY: ENOCH LEROY MD SIGNED DATE/TIME: 08/15/24 1612 CC: AJ
[2024-08-16 08:52] LABS: INR 0.98 (0.9-1.15); Partial Thromboplastin Time 26.2 SEC (24.5-34.5); Prothrombin Time 10.4 sec (9.3-11.8)
--- NOTE | 2024-08-16 08:52 | DVH ---
[facility] [address] [facility] [address] Ph: [phone] DIAGNOSTIC IMAGING Diagnostic Imaging Report : [id number] Signed with Yisel PATIENT: ANDREA FLANAGAN ACCT: [id number] UNIT: [id number] : 1970 LOC: OVERFLOW ROOM / BED: [address] [place] [address] / AGE / SEX: 54 / F ADM STATUS: ADM IN SERVICE 6138 ORDERING PHYSICIAN: TJ FRANCISCO RESIDENT PROCEDURE(s): LHIP - L HIP COMPLETE XRAY REASON: rule out fracture ORDER NUMBER(s): [id number], ACCESSION NUMBER(s): [id number] ADDENDUM ADDENDUM # 1 This addendum is to replace the original report. Initially, the images in the exam were reportedly of the incorrect patient and the error could not be fixed before the original report was sent out. CLINICAL INFORMATION: 54 years old, Female; rule out fractures. TECHNIQUE: Single AP view of the pelvis and AP and frog-leg lateral views of each hip were obtained. COMPARISON: None FINDINGS: No acute fracture or dislocation. Moderate joint space narrowing in both hips, right greater than left with associated subchondral sclerosis. No significant soft tissue abnormality identified. Adjacent soft tissues are unremarkable. IMPRESSION: No evidence of acute bony abnormality in the pelvis or bilateral hips. ORIGINAL REPORT CLINICAL INDICATION: Pain TECHNIQUE: XY L HIP COMPLETE XRAY Comparison: None FINDINGS/IMPRESSION: : There is no evidence of acute fracture or dislocation. Soft tissues are unremarkable. Left central venous catheter in-situ. Intrauterine device in-situ. ATED BY: AYO OLIVA DO DICTATED DATE/TIME: 08/15/24 855 SIGNED BY: AYO OLIVA DO SIGNED DATE/TIME: 08/15/24 7122 CC: CLINICAL INDICATION: Pain TECHNIQUE: XY L HIP COMPLETE XRAY Comparison: None FINDINGS/IMPRESSION: : There is no evidence of acute fracture or dislocation. Soft tissues are unremarkable. Left central venous catheter in-situ. Intrauterine device in-situ. ATED BY: ENOCH LEROY MD DICTATED DATE/TIME: 08/15/24 161 SIGNED BY: ENOCH LEROY MD SIGNED DATE/TIME: 08/15/24 161 CC: AJ
[2024-08-16 08:53] LABS: Albumin 4.7 g/dL (3.2-4.8); Bilirubin, Direct 0.1 mg/dL (<0.3); Bilirubin, Total 0.4 mg/dL (0.2-1.0)
[2024-08-16] MEDS: amLODIPine BESYLATE 5 MG TAB PO SCH (09:01)
[2024-08-16] MEDS: cefTRIAXone 1GM/50ML D5W 50 ML IV SCH (09:01)
[2024-08-16] MEDS ORDERED: LISINOPRIL 20 MG TAB PO SCH (10:00)
[2024-08-16] MEDS ORDERED: PATIENTS OWN MEDICATION (Atorvastatin Calcium 1 TAB) PO SCH (10:00)
[2024-08-16] MEDS: MAGNESIUM SULFATE 1GM/100ML 100 ML IV SCH (10:12)
[2024-08-16] MEDS: ENOXAPARIN SOD 40 MG/0.4 ML SYRINGE SC SCH (10:14)
[2024-08-16] MEDS: MORPHINE SULFATE 4 MG/ML SYR/VIAL IV PRN ×2 (10:15→18:57)
[2024-08-16] MEDS: ONDANSETRON HCL 4 MG/2 ML VIAL IV PRN (10:16)
[2024-08-16] MEDS ORDERED: IBUPROFEN 400 MG TAB PO PRN (11:00)
[2024-08-16] MEDS: OXYCODONE W/ ACETAMINOPHEN 5/325MG TABLET PO SCH (11:00)
[2024-08-16] MEDS: IBUPROFEN 400 MG TAB PO ONE (11:00)
[2024-08-16 11:38] LABS: Urine Bacteria None Seen /hpf (None Seen)
[2024-08-16 11:54] LABS: Urine Blood Negative /uL (Negative); Urine Clarity Turbid (Clear); Urine Color Light-Yellow (Yellow); Urine Protein, UAD Negative (Negative); Urine Specific Gravity 1.013 (1.001-1.035); Urine Squamous Epithelial Cell FEW /hpf (<5); Urine Urobilinogen Normal (Negative); Urine WBC 2 /HPF (0-5); Urine pH 7.5 (5.0-9.0)
[2024-08-16 12:02] LABS: Amphetamine Screen, Urine Neg (NEGATIVE); Barbiturate Scree,Urine Neg (NEGATIVE); Benzodiazephine Screen, Urine Neg (NEGATIVE); Cocaine Screen, Urine Neg (NEGATIVE)
[2024-08-16 12:03] LABS: Cannabinoid Screen, Urine Pos (NEGATIVE); Opiate Scree,Urine Neg (NEGATIVE); Phencyclidine Screen, Urine Neg (NEGATIVE)
[2024-08-16 13:30] VITALS: BP 140/96; PULSE 86; RESP 18; TEMP 99; O2SAT 98
--- NOTE | 2024-08-16 16:54 | DVHPNRES ---
Progress Note Date Seen: Aug 16, 2024 Resident Creating Document: JONNY GARCIA AURELIO Has the PT tested + for MRSA If YES, has PT been informed?: No Medical Necessity Reason Pt with a Central, PICC or Fol: No Subjective Review of Systems Patient seen and examined at bedside. Patient is still complaining of bilateral hip pain. Patient reports: No new complaints Changes from previous H/P or p: Changes Objective vital signs Vital Sign Date Time Temp Pulse Resp B/P (MAP) Pulse Ox O2 Delivery O2 Flow Rate FiO2 08/16/24 13:30 99.0 86 18 140/96 (111) 98 99.0 08/16/24 08:00 Room Air* 0 21 Total Intake and Output 08/15/24 08/15/24 08/16/24 15:00 23:00 07:00 Intake Total 280 ml Output Total 150 ml Balance 130 ml medications Current Medications Medications Dose Ordered Sig/Thom Route Start Time Stop Time Status Last Admin Dose Admin Patient Own Medication 1 tab DAILY PO 08/16/24 10:00 UNV Patient Own Medication 600 mg TID PO 08/15/24 22:00 UNV Atorvastatin Calcium 40 mg HS PO 08/15/24 22:00 08/15/24 22:00 40 MG Gabapentin 600 mg TID PO 08/15/24 22:00 08/16/24 13:57 600 MG Lisinopril 40 mg DAILY PO 08/15/24 15:45 08/16/24 09:00 40 MG Amlodipine Besylate 5 mg DAILY PO 08/16/24 10:00 08/16/24 09:01 5 MG Diagnostic Test (Pha) 1 strip IQ4HR 08/16/24 00:00 08/16/24 12:29 1 STRIP Insulin Human Regular IQ4HR SC 08/16/24 00:00 08/16/24 12:29 4 UNITS Dextrose 50 ml UD PRN IV 08/15/24 23:00 Enoxaparin Sodium 40 mg DAILY SC 08/16/24 10:00 08/16/24 10:14 40 MG Ondansetron HCl 4 mg Q4HPRN PRN IV 08/16/24 08:45 08/16/24 10:16 4 MG Morphine Sulfate 1 mg Q4HPRN PRN IV 08/16/24 11:00 Oxycodone/ Acetaminophen 1 tab BID PO 08/16/24 11:00 Ibuprofen 400 mg Q6HP PRN PO 08/16/24 11:00 Examination General Appearance: Alert, Oriented X3, Cooperative, No acute distress HEENT: Atraumatic, PERRLA, EOMI, Mucous membrane moist/pink Respiratory: Clear to auscultation, Normal air movement Cardiovascular: Regular rate, Normal S1, Normal S2, No murmurs, no chest wall tenderness Abdominal: Normal bowel sounds, Soft, No tenderness, No hepatospenomegaly, No masses Extremities: Bilateral lower limb decreased range of motion at the hip level due to pain Skin: No rashes, No breakdown, No significant lesion Neuro: Normal gait, Normal speech, Strength at 5/5 X4 ext, Normal tone, Sensation intact, Cranial nerves 3-12 NL, Reflexes 2+ Psych/Mental Status: Mental status NL, Mood NL laboratory and microbiology Laboratory Tests 08/16/24 07:10 Test 08/16/24 07:10 Range/Units Serum Glucose 159 H 74-106 mg/dL Labs and/or images reviewed: Labs reviewed by me, Image(s) reviewed by me Problem List/Assessment/Plan Problem List/Assessment/Plan diabetes mellitus with hyperglycemia Intractable bilateral hip pain due to osteoarthritis History of ischemic stroke Hypertension Dropped foot Hypomagnesia Moderate malnutrition Tobacco use disorder Cannabinoids use disorder * Hip x-ray shows Moderate degenerative changes of bilateral hips with of acute fracture or dislocation Plan: Insulin according to monitoring sliding scale Percocet b.i.d., ibuprofen 400 mg q.6 hours, gabapentin and morphine for severe pain p.r.n. Continue atorvastatin, amlodipine and lisinopril DIET: Diabetic diet DVT PROPHYLAXIS: Lovenox CODE STATUS: Goal of care discussed for more than 18 minutes, full code DISPOSITION: Med/surge Patient's status and plan discussed with the patient. Case discussed with Dr. Feng. Plan discussed with: Patient, Other (RN) My Orders My Orders Orders - JONNY GARCIA Procedure Category Date Status Time Enoxaparin Sodium PHA 08/16/24 In Process (Lovenox) 10:00 Ondansetron Hcl PHA 08/16/24 In Process (Zofran) 08:45 Cardiac DIET 08/16/24 Transmitted Diet-2gna,Lofat,Lochol Breakfast Morphine Sulfate PHA 08/16/24 In Process Injection 11:00 Oxycodone W/ Acet PHA 08/16/24 In Process 5/325mg Tab (Percocet 11:00 Ibuprofen Tablet PHA 08/16/24 In Process (Motrin Tablet) 11:00 Pt Request For Service PT 08/16/24 Logged 10:54 Complete Blood Count LAB 08/17/24 Verified 04:00 Comprehensive LAB 08/17/24 Verified Metabolic Panel 04:00 Date of Service: Aug 16, 2024 Billing Provider: KARI FENG MD Common Visit Codes: [id number] INP/OBS CARE(HIGH) JONNY GARCIA RESDIENT Aug 16, 2024 16:54 AKRI FENG MD Aug 17, 2024 09:20
[2024-08-16 17:10] VITALS: BP 165/93; PULSE 79; RESP 18; TEMP 98.5; O2SAT 99
[2024-08-16 21:00] VITALS: BP 146/88; PULSE 81; RESP 18; TEMP 98.6; O2SAT 98
[2024-08-17 05:00] VITALS: BP 145/102; PULSE 87; RESP 17; TEMP 97.4; O2SAT 98
[2024-08-17 05:39] LABS: Basophils # (auto) 0.2 10 ^3/uL (0-0.2); Eosinophils # (auto) 0.5 10 ^3/uL (0-0.8); Eosinophils % (auto) 5.6 % (0.0-7.0); Hematocrit 42.3 % (36.0-46.0); Hemoglobin 14.5 g/dL (12.2-16.2); Lymphocytes # (auto) 2.7 10 ^3/uL (0.4-5.4); Lymphocytes % (auto) 32.8 % (10.0-50.0); Mean Corpuscular Hemoglobin 30.5 pg (28.0-32.0); Mean Corpuscular Hgb Conc. 34.4 g/dL (32.0-36.0); Mean Corpuscular Volume 88.7 fL (80.0-100.0); Monocytes # (auto) 0.8 10 ^3/uL (0-1.3); Monocytes % (auto) 9.4 % (0.0-12.0); Neutrophils % (auto) 49.2 % (37.0-80.0); Nucleated Red Blood Cells % 0.1 %; Platelet Count (auto) 287 10^3/uL (140-450); Red Blood Cells 4.77 10^6/uL (4.0-5.20); Red Cell Distribution Width 13.6 % (11.8-14.3); White Blood Cell 8.1 10^3/uL (4.4-10.8)
[2024-08-17 05:52] LABS: Alanine Aminotransferase 15 U/L (7-40); Albumin 4.7 g/dL (3.2-4.8); Alkaline Phosphatase 77 U/L (46-116); Anion Gap 11 (5-15); Aspartate Aminotransferase 19 U/L (13-40); BUN/Creatinine Ratio 11.3 (10.0-20.0); Bilirubin, Total 0.4 mg/dL (0.2-1.0); Calcium 9.6 mg/dL (8.7-10.4); Carbon Dioxide 24 mmol/L (20-31); Chloride 101 mmol/L (98-107); Sodium 136 mmol/L (136-145); Total Protein 6.9 g/dL (5.7-8.2)
[2024-08-17 05:54] LABS: Blood Urea Nitrogen 6 mg/dL (9-23); Glucose 106 mg/dL (74-106); Potassium 3.4 mmol/L (3.5-5.1)
[2024-08-17 08:57] VITALS: BP 173/103; PULSE 96; RESP 22; TEMP 97.7; O2SAT 99
[2024-08-17] MEDS: cloNIDine HCL 0.1 MG TAB PO ONE (10:31)
[2024-08-17] MEDS: amLODIPine BESYLATE 5 MG TAB PO ONE (10:32)
[2024-08-17 12:53] VITALS: BP 166/103; PULSE 87; RESP 20; TEMP 97.7; O2SAT 99
[2024-08-17] MEDS ORDERED: AMLO1TAB23 PO (14:29)
--- NOTE | 2024-08-17 16:14 | DVHDSRES ---
Discharge Summary Date of Admission Resident Creating Document: JONNY GARCIA RESDIENT Aug 15, 2024 at 14:32 Date of Discharge: Aug 17, 2024 Admitting Diagnosis Low-back pain Wounds: Labs/Diagnostic Data: Laboratory Results Test 08/17/24 08:17 08/17/24 05:01 08/16/24 11:30 08/16/24 07:10 POC Glucose 212 mg/dl (70-106) White Blood Count 8.1 10^3/uL (4.4-10.8) Red Blood Count 4.77 10^6/uL (4.0-5.20) Hemoglobin 14.5 g/dL (12.2-16.2) Hematocrit 42.3 % (36.0-46.0) Mean Corpuscular Volume 88.7 fL (80.0-100.0) Mean Corpuscular Hemoglobin 30.5 pg (28.0-32.0) Mean Corpuscular Hemoglobin Concent 34.4 g/dL (32.0-36.0) Red Cell Distribution Width 13.6 % (11.8-14.3) Platelet Count 287 10^3/uL (140-450) Mean Platelet Volume 8.0 fL (6.9-10.8) Neutrophils (%) (Auto) 49.2 % (37.0-80.0) Lymphocytes (%) (Auto) 32.8 % (10.0-50.0) Monocytes (%) (Auto) 9.4 % (0.0-12.0) Eosinophils (%) (Auto) 5.6 % (0.0-7.0) Basophils (%) (Auto) 3.0 % (0.0-2.0) Neutrophils # (Auto) 4.0 10 ^3/uL (1.6-8.6) Lymphocytes # (Auto) 2.7 10 ^3/uL (0.4-5.4) Monocytes # (Auto) 0.8 10 ^3/uL (0-1.3) Eosinophils # (Auto) 0.5 10 ^3/uL (0-0.8) Basophils # (Auto) 0.2 10 ^3/uL (0-0.2) Nucleated Red Blood Cells 0.1 % Sodium Level 136 mmol/L (136-145) Potassium Level 3.4 mmol/L (3.5-5.1) Chloride Level 101 mmol/L (98-107) Carbon Dioxide Level 24 mmol/L (20-31) Anion Gap 11 (5-15) Blood Urea Nitrogen 6 mg/dL (9-23) Creatinine 0.53 mg/dL (0.550-1.02) Glomerular Filtration Rate Calc 109 mL/min (>90) BUN/Creatinine Ratio 11.3 (10.0-20.0) Serum Glucose 106 mg/dL (74-106) Calcium Level 9.6 mg/dL (8.7-10.4) Total Bilirubin 0.4 mg/dL (0.2-1.0) Aspartate Amino Transferase (AST) 19 U/L (13-40) Alanine Aminotransferase (ALT) 15 U/L (7-40) Alkaline Phosphatase 77 U/L (46-116) Total Protein 6.9 g/dL (5.7-8.2) Albumin 4.7 g/dL (3.2-4.8) Urine Color Light-yellow (Yellow) Urine Clarity Turbid (Clear) Urine pH 7.5 (5.0-9.0) Urine Specific [place] 1.013 (1.001-1.035) Urine Protein Negative (Negative) Urine Ketones 1+ (Negative) Urine Blood Negative /uL (Negative) Urine Nitrite Negative (Negative) Urine Bilirubin Negative (Negative) Urine Urobilinogen Normal mg/dL (Negative) Urine Leukocyte Esterase Negative /uL (Negative) Urine RBC 2 /hpf (0 - 4) Urine Microscopic WBC 2 /HPF (0-5) Urine Squamous Epithelial Cells Few /hpf (<5) Urine Bacteria None seen /hpf (None Seen) Urine Glucose Normal mg/dL (Normal) Urine Opiates Screen Neg (NEGATIVE) Urine Fentanyl Screen Neg (NEGATIVE) Urine Barbiturates Screen Neg (NEGATIVE) Urine Phencyclidine Screen Neg (NEGATIVE) Urine Amphetamines Screen Neg (NEGATIVE) Urine Benzodiazepines Screen Neg (NEGATIVE) Urine Cocaine Screen Neg (NEGATIVE) Urine Cannabinoids Screen Pos (NEGATIVE) Prothrombin Time 10.4 sec (9.3-11.8) Prothrombin Time INR 0.98 (0.9-1.15) Activated Partial Thromboplast Time 26.2 SEC (24.5-34.5) Hemoglobin A1c 7.2 % A1C (<5.7) Magnesium Level 1.5 mg/dL (1.6-2.6) Direct Bilirubin 0.1 mg/dL (<0.3) Other Laboratory Tests 08/17/24 05:01 Brief Hx & Hospital Course: Patient is a 54 year old with a past medical history stroke, DM, HTN and drop foot present to the ED with the main complaint of left sided hip pain. According to the patient this pain has been going on for the past 3 weeks and has been progressive and of late, she has been getting stool incontinence. Patient said she sees a pain doctor and takes percocet. Patient denials recent trauma, fever and chilles. She also mentioned that her magnesium and sodium levels are always low. Patient She was treated for UTI about a week ago, but she is not sure if it has resolved. In the ED her initial vitals revealed BP 162/98, rate of 102, WBC was unremarkable currently pending UA and CMP revealed normal sodium and magnesium of 1.4mg/dL Hospital course: Patient was admitted due to intractable bilateral hip pain. Hip x-ray was performed, showed osteo arthritic changes with no significant displacement or fracture. The patient was given pain killer including morphine, Percocet and ibuprofen. Patient also found to have hyperglycemia and the patient was given insulin. Due to severe hypomagnesemia, the patient was given IV magnesium. For the alcohol use disorder and cannabinoids use disorder the patient was counseled for cessation. For the hypertensive urgency the patient was given lisinopril, amlodipine and clonidine. Home medicine were continued during hospital admission. On 08/17/2024 the patient was feeling better since admission. Discharge plan: Percocet b.i.d. Ibuprofen 3 times daily as needed for pain Amlodipine 10 mg daily Follow up with the PCP within 1 week of the discharge Follow up with the pain management doctor on outpatient basis. Follow up with the discharge Clinic within 1 week of the discharge Operations or Procedures Patient is a 54 year old with a past medical history stroke, DM, HTN and drop foot present to the ED with the main complaint of left sided hip pain. According to the patient this pain has been going on for the past 3 weeks and has been progressive and of late, she has been getting stool incontinence. Patient said she sees a pain doctor and takes percocet. Patient denials recent trauma, fever and chilles. She also mentioned that her magnesium and sodium levels are always low. Patient She was treated for UTI about a week ago, but she is not sure if it has resolved. In the ED her initial vitals revealed BP 162/98, rate of 102, WBC was unremarkable currently pending UA and CMP revealed normal sodium and magnesium of 1.4mg/dL Condition at Discharge: Fair Final Diagnosis/Problems List diabetes mellitus with hyperglycemia Intractable bilateral hip pain due to osteoarthritis History of ischemic stroke Hypertension Dropped foot Hypomagnesia Moderate malnutrition Tobacco use disorder Cannabinoids use disorder Ruled out UTI Hypertensive urgency Discharge Disposition: Home Discharge Instruct/Medications Diet: Regular Activity: No Restrictions, As Tolerated Follow Up/Referral: Follow up with the PCP within 1 week after discharge. Follow up with the pain management doctor on outpatient basis. Medications: Continue home meds Ibuprofen 400 mg 3 times a day as needed for pain Discharge Statement: "Patient was advised to return to the ER or call 911 if any headaches, dizziness, shortness of breath, chest pain, abdominal pain, bleeding, fevers, or worsening of medical condition. Patient was counseled about treatment plan, medications, possible side effects, patientverbalized understanding. All questions were answered to the best of my ability. This discharge took greater then 30 minutes in planning, reviewing documentation, counseling the patient, and discussing with other team members." ASSESSMENT ASSESSMENT Assessment Severe hip pain due to osteoarthritis Date of Service: Aug 17, 2024 Billing Provider: KARI FENG MD Common Visit Codes: 54118-DWP/OBS DISCH DAY >30min JONNY GARCIA RESDIENT Aug 17, 2024 16:14 KARI FENG MD Aug 18, 2024 11:14
[2024-08-18] MEDS ORDERED: amLODIPine BESYLATE 5 MG TAB PO SCH (10:00)
== END 2024-08-17 16:30 | disposition home or self-care (01) | DRG 554 ==
LOC: EDBD 10:36 → ER 10:36 → OVERFLOW 14:32 → WEST WING 21:30
PROVIDERS: ADMIT Student in an Organized Health Care Education/Training Program; ATTEND Emergency Medicine
DX: M16.0 Bilateral primary osteoarthritis of hip (principal); Z68.1 Body mass index [BMI] 19.9 or less, adult; E44.0 Moderate protein-calorie malnutrition; E83.42 Hypomagnesemia; R15.9 Full incontinence of feces; I10 Essential (primary) hypertension; E11.65 Type 2 diabetes mellitus with hyperglycemia; I16.0 Hypertensive urgency; M54.9 Dorsalgia, unspecified; F17.210 Nicotine dependence, cigarettes, uncomplicated; M21.372 Foot drop, left foot; Z79.891 Long term (current) use of opiate analgesic; Z79.1 Long term (current) use of non-steroidal anti-inflammatories (NSAID); Z79.899 Other long term (current) drug therapy; Z79.4 Long term (current) use of insulin; Z79.84 Long term (current) use of oral hypoglycemic drugs; Z83.3 Family history of diabetes mellitus; Z80.8 Family history of malignant neoplasm of other organs or systems; Z98.891 History of uterine scar from previous surgery; Z86.73 Personal history of transient ischemic attack (TIA), and cerebral infarction without residual deficits
CPT/HCPCS: 36415; 71045; 73502; 80048; 80053; 80076; 80307; 81001; 82962; 83036; 83735; 85025; 85610; 85730; 96361; 96374; 96375; 97163; G0378; J1815; J2405; Q0162

== ENCOUNTER 2024-12-27 19:49 | Emergency (ER) | payer MEDICARE, MEDICAID ==
[~2024-12-27] VITALS: Ht 160 cm; Wt 56.8 kg
[~2024-12-27 19:49] MED LIST changes: +AMLO1TAB23 PO; -ATOR40TA52 PO; -AZIT500T PO; -HYDR-4902 PO; -LISI20TA56 PO; -PERCOT PO; -POTA-180 PO; -PRED20TA2 PO
--- NOTE | 2024-12-27 20:45 | ED.PDOC ---
HPI Comments 54-year-old with hypertension, history of stroke presented to the ER with a chief complaint of right-sided headache for the past 2 weeks and elevated pressure. She reports that for the past 2 weeks she has right-sided headache associated with photophobia, phonophobia and numbness and tingling of the right upper extremity. Also reports some neck and back tenderness. She has been using her friend's sumatriptan p.o. which has been alleviating the headache. For the past 4 days, patient has been unable to follow blood pressure on her blood pressure medication lisinopril 20 mg, patient increased the dose to 40 mg but her blood pressure stayed high. She denies any motor or sensory deficits, dysphagia or any bulbar symptoms. De nies shortness of breaths, chest pain, nausea or vomiting at this time. Patient seen and examined. Motor strength is weak and bilateral upper extremities but patient reports this is chronic, no asymmetry noted, CT head is unremarkable. Chest x-ray unremarkable. Chief Complaint: Headache Time Seen by MD: 20:22 Primary Care Provider: TARA Preston Notes: Nurses Notes Allergies: Coded Allergies: NO KNOWN ALLERGIES (Unverified , 11/14/23) Home Meds Active Scripts Amlodipine Besylate (Amlodipine Besylate) 10 Mg Tab, 10 MG PO DAILY for 20 Days, #20 TAB 1 Refill Prov:MEIRMARINAMEIRQAMAR RESDIENT 08/17/24 Magnesium Oxide (MAGNESIUM OXIDE) 400 Mg Tab, 2 TAB PO BID, #180 TAB 3 Refills Prov:JIL BARBOUR MD 03/14/24 Reported Medications Nortriptyline Hcl (PAMELOR CAPSULE) 25 Mg Cp, 1 CAP PO 11/19/22 Insulin Lispro (Insulin Lispro) 100 Unit/Ml Inj, 10 UNIT SC TID, INJ 08/07/22 Gabapentin (Gabapentin) 600 Mg Tab, 600 MG PO TID, TAB 08/07/22 Metformin Hydrochloride (METFORMIN HCL ER) 500 Mg Tab, 500 MG PO BID, TAB 08/07/22 Information Source: Patient Mode of Arrival: EMS Past Medical History PAST MEDICAL HISTORY: CVA, DM, High Lipids, HTN, TIA 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 History Family History Family History: Family hx of DM, Family hx of Cancer Social History Smoker: Cigarettes, Less Than 1 Pack/Day Alcohol: Denies ETOH Use Drugs: Marijuana Lives In: Home Constitutional: reports: fatigue EENTM: reports: blurred vision Respiratory: denies: cough, hemoptysis, orthopnea, SOB at rest, shortness of breath, SOB with excertion, stridor, wheezing, others Cardiovascular: denies: chest pain, dizzy spells, diaphoresis, Dyspnea on exertion, edema, irregular heart beat, left arm pain, lightheadedness, palpitations, PND, syncope, others Gastrointestinal: denies: abdomen distended, abdominal pain, blood streaked bowels, constipated, diarrhea, dysphagia, difficulty swallowing, hematemesis, melena, nausea, poor appetite, poor fluid intake, rectal bleeding, rectal pain, vomiting, others Genitourinary: denies: abnormal vagina bleeding, burning, dyspareunia, dysuria, flank pain, frequency, hematuria, incontinence, pain, , vagina discharge, urgency, others Neurological: reports: headache, paresthesia, right sided numbness Musculoskeletal: denies: back pain, gout, joint pain, joint swelling, muscle pain, muscle stiffness, neck pain, others Integumetry: denies: bruises, change in color, change in hair/nails, dryness, laceration, lesions, lumps, rash, wounds, others Allergic/Immunocompromised: denies: Difficulty Healing, Frequent Infections, Hives, Itching, others Hematologic/Lymphatic: denies: anemia, blood clots, easy bleeding, easy bruising, swollen glands, others Endocrine: denies: excessive hunger, excessive sweating, excessive thirst, excessive urination, flushing, intolerance to cold, intolerance to heat, unexplained weight gain, unexplained weight loss, others Psychiatric: denies: anxiety, bipolar disorder, depression, hopeless, panic disorder, schizophrenia, sleepless, suicidal, others Physical Exam General Appearance: Mild Distress HEENT: NOT DONE Neck: NOT DONE Respiratory: Decreased Breath Sounds, No Accessory Muscle Use, No Respiratory Distress Cardiovascular: No Edema, Tachycardia Breast Exam: Deferred Gastrointestinal: No Organomegaly, Non Tender, No Pulsatile Mass, Normal Bowel Sounds, Soft Genitalia: Deferred Pelvic: Deferred Rectal: Deferred Extremities: No calf tenderness, Normal capillary refill, Normal inspection, Normal range of motion, Non-tender, No pedal edema 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 Was a procedure done?: No CP Differential Dx Differential Diagnosis: Heart Failure, Hyperthyroidism Differential Diagnosis: CHF, HTN Essential X-Ray, Labs, Meds, VS Vital Signs Date Time Temp Pulse Resp B/P (MAP) Pulse Ox O2 Delivery O2 Flow Rate FiO2 12/28/24 00:15 83 185/116 12/28/24 00:09 97.9 85 18 185/116 (139) 99 97.9 12/27/24 19:55 98.0 123 15 188/95 97 98.0 Lab Test 12/27/24 21:44 Range/Units White Blood Count 12.3 H 4.4-10.8 10^3/uL Red Blood Count 4.39 4.0-5.20 10^6/uL Hemoglobin 13.6 12.2-16.2 g/dL Hematocrit 38.5 36.0-46.0 % Mean Corpuscular Volume 87.8 80.0-100.0 fL Mean Corpuscular Hemoglobin 31.0 28.0-32.0 pg Mean Corpuscular Hemoglobin Concent 35.3 32.0-36.0 g/dL Red Cell Distribution Width 13.7 11.8-14.3 % Platelet Count 303 140-450 10^3/uL Mean Platelet Volume 8.2 6.9-10.8 fL Neutrophils (%) (Auto) 65.2 37.0-80.0 % Lymphocytes (%) (Auto) 25.6 10.0-50.0 % Monocytes (%) (Auto) 5.9 0.0-12.0 % Eosinophils (%) (Auto) 2.1 0.0-7.0 % Basophils (%) (Auto) 1.2 0.0-2.0 % Neutrophils # (Auto) 8.0 1.6-8.6 10 ^3/uL Lymphocytes # (Auto) 3.2 0.4-5.4 10 ^3/uL Monocytes # (Auto) 0.7 0-1.3 10 ^3/uL Eosinophils # (Auto) 0.3 0-0.8 10 ^3/uL Basophils # (Auto) 0.1 0-0.2 10 ^3/uL Nucleated Red Blood Cells 0.0 % Sodium Level 135 L 136-145 mmol/L Potassium Level 3.9 3.5-5.1 mmol/L Chloride Level 100 98-107 mmol/L Carbon Dioxide Level 28 20-31 mmol/L Anion Gap 7 5-15 Blood Urea Nitrogen 10 9-23 mg/dL Creatinine 0.66 0.550-1.02 mg/dL Glomerular Filtration Rate Calc 104 >90 mL/min BUN/Creatinine Ratio 15.2 10.0-20.0 Serum Glucose 173 H 74-106 mg/dL Lactic Acid Level 0.8 0.4-2.0 mmol/L Calcium Level 8.9 8.7-10.4 mg/dL Total Bilirubin 0.3 0.2-1.0 mg/dL Aspartate Amino Transferase (AST) 18 13-40 U/L Alanine Aminotransferase (ALT) 19 7-40 U/L Alkaline Phosphatase 81 46-116 U/L Troponin I High Sensitivity 7 </=34 ng/L B-Type Natriuretic Peptide 37.43 0-100 pg/mL Total Protein 6.9 5.7-8.2 g/dL Albumin 4.5 3.2-4.8 g/dL Current Medications Medications (Trade) Dose Ordered Sig/Thom Route Start Time Stop Time Status Last Admin Ketorolac Tromethamine (Toradol Injection) 15 mg ONCE ONCE IV 12/27/24 20:45 12/27/24 20:47 DC 12/28/24 00:14 Metoclopramide HCl (Reglan Injection) 10 mg ONCE ONCE IV 12/27/24 20:45 12/27/24 20:47 DC 12/28/24 00:15 Labetalol HCl (Labetalol HCl) 5 mg ONCE ONCE IV 12/27/24 20:45 12/27/24 20:48 DC 12/28/24 00:15 X-Ray, Labs, Meds, VS Comment CT head shows No acute intracranial abnormality. Images Reviewed?: Images reviewed and evaluated by me Time of 1ST Reevaluation: 00:00 Reevaluation 1ST: Patient eloped Patient Education/Counseling: Diagnosis, Treatment Family Education/Counseling: No Family Present SEPSIS Sepsis Screen Date sepsis recognized/suspect: Dec 27, 2024 Time Sepsis recognized/suspect: 1949 Recent Procedure: No On Antibiotic Therapy: No Respiratory Rate >20: No Heart Rate >90: Yes Temp<36 C (96.8 F) or >38.3 C: No SBP <90 or MAP <65 mmHG: No New Acute Mental Status Change: No Is the patient on CPAP, BIPAP,: No Physician Orders Head Without Contrast (12/27/24 20:40) Chest Xray 1 View (12/27/24 20:40) Electrocardigram (12/27/24 20:40) Electrocardigram (12/27/24 23:40) Vital Signs Date Time Temp Pulse Resp B/P (MAP) Pulse Ox O2 Delivery O2 Flow Rate FiO2 12/28/24 00:15 83 185/116 12/28/24 00:09 97.9 85 18 185/116 (139) 99 97.9 12/27/24 19:55 98.0 123 15 188/95 97 98.0 Laboratory Tests Test 12/27/24 21:44 Lactic Acid Level 0.8 mmol/L (0.4-2.0) White Blood Count 12.3 10^3/uL (4.4-10.8) H Medications Medications Dose Ordered Sig/Thom Route Start Time Stop Time Status Last Admin Dose Admin Ketorolac Tromethamine 15 mg ONCE ONCE IV 12/27/24 20:45 12/27/24 20:47 DC 12/28/24 00:14 Labetalol HCl 5 mg ONCE ONCE IV 12/27/24 20:45 12/27/24 20:48 DC 12/28/24 00:15 Metoclopramide HCl 10 mg ONCE ONCE IV 12/27/24 20:45 12/27/24 20:47 DC 12/28/24 00:15 Departure 1 Departure Time of Disposition: 00:00 Impression: Primary Impression: Hypertensive crisis Additional Impression: Headache Disposition: LEFT AWOL/ELOPED Condition: Fair Comments Patient eloped during medical management and evaluation, CT head was unremarkable. Patient required inpatient care and management. Critical Care Note Critical Care Time?: No Stability Stability form required: No Heart Score Heart Score: Heart Score Response (Comments) Value History Slightly Suspicious 0 EKG N/A (Eloped) 0 Age 45-64 1 Risk Factors >3 or Hx ASHD 2 Troponin Normal limit 0 Total 3 OLIVER TIERNEY RESIDENT Dec 27, 2024 20:45
--- NOTE | 2024-12-27 21:09 | DVH ---
EXAM: CT HEAD WITHOUT CONTRAST INDICATION: Persistent headache, HTN TECHNIQUE: CT of the head without intravenous contrast. Radiation Dose Information: CT Dose: CTDI volume is 54.52 mGy. Dose-length product is 765.05 mGy*cm The dose indicators for CT are the volume Computed Tomography (CT) Dose Index (CTDIvol) and the Dose Length Product (DLP), and are measured in units of mGy and mGy-cm, respectively. These indicators are not patient dose, but values generated from the CT scanner acquisition factors. The report includes radiation exposure data for exposures received during this examination. COMPARISON: None FINDINGS: There is no evidence of acute intracranial hemorrhage, extra-axial collection, mass effect, midline s hift, herniation or hydrocephalus. The ventricles, sulci and cisterns are age appropriate. The duncan-white differentiation is intact. Patchy periventricular and subcortical white matter hypoattenuation is nonspecific but may be related to small vessel ischemic disease. The visualized paranasal sinuses and mastoid air cells are clear. The surrounding soft tissues and osseous structures are unremarkable. IMPRESSION: No acute intracranial abnormality.
--- NOTE | 2024-12-27 21:37 | DVH ---
CHEST RADIOGRAPH Indication: HTN Technique: Single frontal view of the chest was obtained Comparison: XY CHEST PORTABLE on DOS: 08/15/24, XY CHEST XRAY 1 VIEW on DOS: 01/14/24, XY CHEST XRAY 1 VIEW on DOS: 01/02/24 FINDINGS: Lines and Tubes: None Lungs: No focal consolidation. Pleura: No effusion. No pneumothorax. Cardiomediastinal contours: Unremarkable Bones: No acute osseous abnormality. IMPRESSION: 1. No acute cardiopulmonary disease.
[2024-12-27 22:10] LABS: Hematocrit 38.5 % (36.0-46.0); Hemoglobin 13.6 g/dL (12.2-16.2); Mean Corpuscular Hemoglobin 31.0 pg (28.0-32.0); Mean Corpuscular Volume 87.8 fL (80.0-100.0); Nucleated Red Blood Cells % 0.0 %
[2024-12-27 22:27] LABS: Alanine Aminotransferase 19 U/L (7-40); Albumin 4.5 g/dL (3.2-4.8); Alkaline Phosphatase 81 U/L (46-116); Anion Gap 7 (5-15); BUN/Creatinine Ratio 15.2 (10.0-20.0); Blood Urea Nitrogen 10 mg/dL (9-23); Calcium 8.9 mg/dL (8.7-10.4); Carbon Dioxide 28 mmol/L (20-31); Chloride 100 mmol/L (98-107); Potassium 3.9 mmol/L (3.5-5.1); Total Protein 6.9 g/dL (5.7-8.2)
[2024-12-27 22:43] LABS: Bilirubin, Total 0.3 mg/dL (0.2-1.0); Glucose 173 mg/dL (74-106); Sodium 135 mmol/L (136-145)
[2024-12-28 00:09] VITALS: BP 185/116; PULSE 85; RESP 18; TEMP 97.9; O2SAT 99
[2024-12-28] MEDS: KETOROLAC TROMETH 30 MG/ML 1ML VIAL IV ONE (00:14)
[2024-12-28] MEDS: METOCLOPRAMIDE HCL 5MG/ml INJ 2ml VIAL IV ONE (00:15)
[2024-12-28] MEDS: LABETALOL HCL 20 MG/4 ML VL IV ONE (00:15)
[2024-12-28] MEDS ORDERED: hydrALAZINE HCL 20 MG/ML VL IV ONE (00:30)
== END 2024-12-28 00:29 | disposition left against medical advice (07) ==
LOC: EDBD 19:49 → ER 19:49
DX: I16.9 Hypertensive crisis, unspecified (principal); R51.9 Headache, unspecified; I10 Essential (primary) hypertension; F17.210 Nicotine dependence, cigarettes, uncomplicated; E11.9 Type 2 diabetes mellitus without complications; Z86.73 Personal history of transient ischemic attack (TIA), and cerebral infarction without residual deficits; Z79.899 Other long term (current) drug therapy
CPT/HCPCS: 36415; 70450; 71045; 80053; 83605; 83880; 84484; 85025; 96374; 96375; 99285; J1885; J2765